=== PATIENT | female | born 1965 | race African-American/Black ===

== ENCOUNTER 2016-11-14 13:31 | Inpatient (IN) | payer OTHER ==
[2016-11-14 14:02] VITALS: BMI 22.8
--- NOTE | 2016-11-14 17:12 | HP ---
COWS - Scale Resting Pulse: 1= [place] 81-100 Sweatin= Chills/Flushing Restless Observation: 1= Difficult to Sit Still Pupil Size: 1= Pupils >than Normal Bone or Joint Aches: 1= Mild Discomfort Runny Nose/ Eye Tearin= Nasal Congestion GI Upset > 30mins: 1= Stomach Cramp Tremor Observation: 2= Slight Tremor Visible Yawning Observation: 0= None Anxiety or Irritability: 2=Irritable/Anxious Goose Flesh Skin: 3=Piloerection COWS Score: 14 Admission ROS S - HPI Chief Complaint: WITHDRAWAL SX Allergies/Adverse Reactions: Allergies Allergy/AdvReac Type Severity Reaction Status Date / Time No Known Allergies Allergy Verified 11/14/16 17:07 History of Present Illness: 51 YEARS OLD FEMALE WITH LONG HISTORY OF OPIATE AND NICOTINE DEPENDENCE, DENIES MEDICAL DENIES MENTAL ILLNESS IS ADMITTED TO DETOX Exam Limitations: No Limitations - Ebola screening Have you traveled outside of the country in the last 21 days: No Have you had contact with anyone from an Ebola affected area: No Have you been sick,other than usual withdrawal symptoms: No Do you have a fever: No Patient History - Patient Medical History Hx Anemia: No Hx Asthma: No Hx Chronic Obstructive Pulmonary Disease (COPD): No Hx Cancer: No Hx Cardiac Disorders: No Hx Congestive Heart Failure: No Hx Hypertension: No Hx Hypercholesterolemia: No Hx Pacemaker: No HX Cerebrovascular Accident: No Hx Seizures: No Hx Dementia: No Hx Diabetes: No Hx Gastrointestinal Disorders: No Hx Liver Disease: No Hx Genitourinary Disorders: No Hx Sexually Transmitted Disorders: No Hx Renal Disease (ESRD): No Hx Thyroid Disease: No Hx Human Immunodeficiency Virus (HIV): No (LAST 05/08/16) Hx Hepatitis C: No Hx Depression: No Hx Suicide Attempt: No Hx Bipolar Disorder: No Hx Schizophrenia: No - Patient Surgical History Past Surgical History: No Hx Neurologic Surgery: No Hx Cataract Extraction: No Hx Cardiac Surgery: No Hx Lung Surgery: No Hx Breast Surgery: No Hx Breast Biopsy: No Hx Abdominal Surgery: No Hx Appendectomy: No Hx Cholecystectomy: No Hx Genitourinary Surgery: No Hx Section: No Hx Orthopedic Surgery: No Hx Hysterectomy: No - PPD History Previous Implant?: Yes Documented Results: Negative w/proof Implanted On Prior R Admission?: Yes Date: 05/10/16 Results: O MM PPD to be Administered?: No - Reproductive History Patient is a Female of Child Bearing Age (11 -55 yrs old): Yes Last Menstrual Period: 10/21/16 Patient : No - Smoking Cessation Smoking history: Current every day smoker Have you smoked in the past 12 months: Yes Aproximately how many cigarettes per day: 10 Cigars Per Day: 0 Hx Chewing Tobacco Use: No Initiated information on smoking cessation: Yes 'Breaking Loose' booklet given: 11/14/16 - Substance & Tx. History Hx Alcohol Use: No Hx Substance Use: Yes Substance Use Type: Opiates Hx Substance Use Treatment: Yes - Substances Abused Heroin Route: Inhalation Frequency: Daily Amount used: 7 bags Age of first use: 50 Date of Last Use: 11/13/16 Crack Route: Smoking Frequency: 3-6 times per week Amount used: $100 Age of first use: 27 Date of Last Use: 11/13/16 Family Disease History - Family Disease History Family Disease History: Other: Father (NO CONTACT), Mother ( LIVER ) Admission Physical Exam [facility] - Vital Signs Vital Signs: Vital Signs - 24 hr 11/14/16 13:57 Temperature 96.3 F L Pulse Rate 85 Respiratory 18 Rate Blood Pressure 104/85 - Physical General Appearance: Yes: Appropriately Dressed, Mild Distress, Thin, Tremorous, Irritable, Sweating, Anxious HEENTM: Yes: Hearing grossly Normal, Normal ENT Inspection, Normocephalic, Normal Voice Respiratory: Yes: Chest Non-Tender, Lungs Clear, Normal Breath Sounds, No Respiratory Distress, No Accessory Muscle Use Neck: Yes: Supple, Trachea in good position Breast: Yes: Breasts Symetrical Cardiology: Yes: Regular Rhythm, Regular Rate, S1, S2 Abdominal: Yes: Non Tender, Soft Genitourinary: Yes: Within Normal Limits Back: Yes: Normal Inspection Musculoskeletal: Yes: full range of Motion, Gait Steady Extremities: Yes: Normal Range of Motion, Non-Tender, Tremors Neurological: Yes: Fully Oriented, Alert, Motor Strength 5/5, Normal Mood/Affect , Normal Response Integumentary: Yes: Warm Lymphatic: Yes: Within Normal Limits - Diagnostic (1) Nicotine dependence Current Visit: Yes Status: Acute Qualifiers: Nicotine product type: cigarettes Substance use status: in withdrawal Qualified Code(s): F17.213 - Nicotine dependence, cigarettes, with withdrawal (2) Opioid dependence with withdrawal Current Visit: Yes Status: Acute (3) Weight loss Current Visit: Yes Status: Acute Cleared for Admission [facility] - Detox or Rehab [facility] Level of Care: Medically Managed Detox Regimen/Protocol: Methadone [facility] Breath Alcohol Content Breath Alcohol Content: 0 Urine Pregancy Test - Result Urine Test Results: Negative- NO Line Present Urine Drug Screen - Results Drug Screen Negative: No Urine Drug Screen Results: REILLY-Cocaine, OPI-Opiates, OXY-Oxycodone
[2016-11-14] MEDS ORDERED: P-EPHED 60MG/TRIPROLIDI 2.5MG TABLET PO PRN (17:15)
[2016-11-14] MEDS ORDERED: MAG HYDROX/AL HYDROX/SIMETH 30 ML UNIT-DOSE CUP PO PRN (17:15)
[2016-11-14] MEDS ORDERED: NICOTINE POLACRILEX 2 MG GUM BC PRN (17:15)
[2016-11-14] MEDS ORDERED: guaiFENesin/D-METHORPHAN HB 10 ML UNIT-DOSE CUPS PO PRN (17:15)
[2016-11-14] MEDS ORDERED: IBUPROFEN 400 MG TABLET (FP) PO PRN (17:15)
[2016-11-14] MEDS ORDERED: MAGNESIUM CITRATE 300 ML BOTTLE PO PRN (17:15)
[2016-11-14] MEDS ORDERED: LOPERAMIDE HCL 2 MG CAPSULE PO PRN (17:15)
[2016-11-14] MEDS ORDERED: ACETAMINOPHEN 325 MG TABLET (FP) PO PRN (17:15)
[2016-11-14] MEDS ORDERED: MENTHOL/PHENOL 1 EACH UD MM PRN (17:15)
[2016-11-14] MEDS ORDERED: MAGNESIUM HYDROX 2400MG/30ML ORAL SUSPENSION 30 ML CUP PO PRN (17:15)
[2016-11-14] MEDS ORDERED: METHADONE HCL 10 MG TABLET (FOR DETOX USE ONLY) PO ONE ×2 (18:00→23:00)
[2016-11-14] MEDS: diazePAM 5 MG TABLET PO PRN ×2 (18:23→22:03)
[2016-11-14] MEDS: THIAMINE HCL 100 MG TABLET (FP) PO SCH (22:03)
[2016-11-15] MEDS: diphenhydrAMINE HCL 50 MG CAPSULE PO PRN (01:52)
[2016-11-15] MEDS: diazePAM 5 MG TABLET PO PRN ×4 (02:45→22:46)
[2016-11-15] MEDS ORDERED: METHADONE HCL 10 MG TABLET (FOR DETOX USE ONLY) PO ONE (10:00)
[2016-11-15] MEDS: PRENATAL VITAMINS W/ FOLIC ACID TABLET (FP) PO SCH (10:16)
[2016-11-15] MEDS: NICOTINE 14 MG/24 HOURS TOPICAL PATCH TD SCH (10:16)
[2016-11-15 10:18] LABS: URINE APPEARANCE CLEAR; URINE BILIRUBIN NEGATIVE (NEGATIVE); URINE BLOOD NEGATIVE (NEGATIVE); URINE COLOR STRAW; URINE GLUCOSE (UA) NEGATIVE (NEGATIVE); URINE KETONE NEGATIVE (NEGATIVE); URINE LEUK ESTERASE NEGATIVE (NEGATIVE); URINE NITRITE NEGATIVE (NEGATIVE); URINE PROTEIN NEGATIVE (NEGATIVE); URINE UROBILINOGEN NEGATIVE E.U./dl (0.2-1.0)
[2016-11-15 10:28] LABS: MCH 26.3 pg (25.7-33.7); MCHC 31.9 g/dl (32.0-36.0); MEAN CELL VOLUME 82.2 fl (80-96); MEAN PLT VOLUME 10.9 fl (7.5-11.1); PLATELET COUNT 164 K/MM3 (134-434); RDW 16.8 % (11.6-15.6); WHITE BLOOD COUNT 3.9 K/mm3 (4.0-10.0)
[2016-11-15 10:31] LABS: ALBUMIN 3.6 g/dl (3.4-5.0); ALK PHOS 115 U/L (45-117); ANION GAP 5 (8-16); BILIRUBIN,TOTAL 0.1 mg/dL (0.2-1.0); CALCIUM 8.6 mg/dL (8.5-10.1); CO2 30 mmol/L (21-32); CREATININE 0.8 mg/dL (0.55-1.02); GLUCOSE,RANDOM 63 mg/dL (74-106); SGOT/AST 21 U/L (15-37); SGPT/ALT 19 U/L (12-78); TOT PROT 6.4 g/dl (6.4-8.2)
--- NOTE | 2016-11-15 16:12 | EKG ---
Test Reason : Blood Pressure : / mmHG Vent. Rate : 053 BPM Atrial Rate : 053 BPM P-R Int : 124 ms QRS Dur : 082 ms QT Int : 452 ms P-R-T Axes : 081 042 044 degrees QTc Int : 424 ms SINUS BRADYCARDIA POSSIBLE LEFT ATRIAL ENLARGEMENT BORDERLINE ECG NO PREVIOUS ECGS AVAILABLE Confirmed by RADHA DAVALOS, SUZANNE ([id number]) on 11/15/2016 4:12:11 PM Referred By: Confirmed By:SUZANNE GARCIA MD
[2016-11-15] MEDS: THIAMINE HCL 100 MG TABLET (FP) PO SCH (22:46)
[2016-11-16] MEDS: diazePAM 5 MG TABLET PO PRN ×5 (02:08→19:17)
[2016-11-16] MEDS ORDERED: METHADONE HCL 5 MG TABLET (FOR DETOX USE ONLY) PO ONE (10:00)
--- NOTE | 2016-11-16 10:26 | PN ---
S CIWA - CIWA Score Nausea/Vomitin Muscle Tremors: 2 Anxiety: 2 Agitation: 2 Paroxysmal Sweats: 3 Orientation: 0-Oriented Tacttile Disturbances: 1-Very Mild Itch/Numbness Auditory Disturbances: 0-None Visual Disturbances: 0-None Headache: 0-None Present CIWA-Ar Total Score: 12 S Progress Note (SOAP) Subjective: interrupted sleep, sweats Objective: 11/16/16 10:25 Vital Signs Temperature 97.9 F 11/16/16 09:55 Pulse Rate 79 11/16/16 09:55 Respiratory Rate 18 11/16/16 09:55 Blood Pressure 113/73 11/16/16 09:55 O2 Sat by Pulse Oximetry (%) Vital Signs Temperature 97.9 F 11/16/16 09:55 Pulse Rate 79 11/16/16 09:55 Respiratory Rate 18 11/16/16 09:55 Blood Pressure 113/73 11/16/16 09:55 O2 Sat by Pulse Oximetry (%) Laboratory Tests 11/15/16 11/15/16 11/15/16 06:20 06:20 06:20 WBC 3.9 L RBC 4.21 Hgb 11.1 Hct 34.6 MCV 82.2 MCHC 31.9 L RDW 16.8 H Plt Count 164 MPV 10.9 Sodium 142 Potassium 4.2 Chloride 107 Carbon Dioxide 30 Anion Gap 5 L BUN 9 D Creatinine 0.8 Creat Clearance w eGFR > 60 Random Glucose 63 L D Calcium 8.6 Total Bilirubin 0.1 L AST 21 ALT 19 D Alkaline Phosphatase 115 Total Protein 6.4 Albumin 3.6 D Urine Color Urine Appearance Urine pH Ur Specific [place] Urine Protein Urine Glucose (UA) Urine Ketones Urine Blood Urine Nitrite Urine Bilirubin Urine Urobilinogen Ur Leukocyte Esterase RPR Titer Hepatitis C Antibody 0.1 11/15/16 11/15/16 06:20 08:00 WBC RBC Hgb Hct MCV MCHC RDW Plt Count MPV Sodium Potassium Chloride Carbon Dioxide Anion Gap BUN Creatinine Creat Clearance w eGFR Random Glucose Calcium Total Bilirubin AST ALT Alkaline Phosphatase Total Protein Albumin Urine Color Straw Urine Appearance Clear Urine pH 6.0 Ur Specific [place] 1.009 Urine Protein Negative Urine Glucose (UA) Negative Urine Ketones Negative Urine Blood Negative Urine Nitrite Negative Urine Bilirubin Negative Urine Urobilinogen Negative Ur Leukocyte Esterase Negative RPR Titer Nonreactive Hepatitis C Antibody Assessment: 11/16/16 10:25 withdrawl sx,s Plan: cont, detox increase fluids
[2016-11-16] MEDS: PRENATAL VITAMINS W/ FOLIC ACID TABLET (FP) PO SCH (10:29)
[2016-11-16] MEDS: NICOTINE 14 MG/24 HOURS TOPICAL PATCH TD SCH (10:30)
[2016-11-16] MEDS: THIAMINE HCL 100 MG TABLET (FP) PO SCH (22:23)
[2016-11-16] MEDS: diphenhydrAMINE HCL 50 MG CAPSULE PO PRN (22:23)
[2016-11-17] MEDS: diazePAM 5 MG TABLET PO PRN ×4 (00:30→14:24)
[2016-11-17] MEDS ORDERED: METHADONE HCL 5 MG TABLET (FOR DETOX USE ONLY) PO ONE (10:00)
[2016-11-17] MEDS: NICOTINE 14 MG/24 HOURS TOPICAL PATCH TD SCH (10:17)
[2016-11-17] MEDS: PRENATAL VITAMINS W/ FOLIC ACID TABLET (FP) PO SCH (10:18)
--- NOTE | 2016-11-17 16:01 | PN ---
S COWS - Scale Resting Pulse: 1= [place] 81-100 Sweatin= Chills/Flushing Restless Observation: 1= Difficult to Sit Still Pupil Size: 0= Normal to Room Light Bone or Joint Aches: 1= Mild Discomfort Runny Nose/ Eye Tearin= None GI Upset > 30mins: 2= Nausea/Diarrhea Tremor Observation of Outstretched Hands: 2= Slight Tremor Visible Yawning Observation: 1= 1-2x During Session Anxiety or Irritability: 2=Irritable/Anxious Goose Flesh Skin: 3=Piloerection COWS Score: 14 S Progress Note (SOAP) Subjective: Tremors, sweating. Objective: PT. A & O X 2 (DISORIENTED ABOUT DAY DATE). 11/17/16 15:58 Vital Signs Temperature 98.4 F 11/17/16 14:36 Pulse Rate 85 11/17/16 14:36 Respiratory Rate 18 11/17/16 14:36 Blood Pressure 108/68 11/17/16 14:36 O2 Sat by Pulse Oximetry (%) Laboratory Last Values WBC 3.9 K/mm3 (4.0-10.0) L 11/15/16 06:20 RBC 4.21 M/mm3 (3.60-5.2) 11/15/16 06:20 Hgb 11.1 GM/dL (10.7-15.3) 11/15/16 06:20 Hct 34.6 % (32.4-45.2) 11/15/16 06:20 MCV 82.2 fl (80-96) 11/15/16 06:20 MCHC 31.9 g/dl (32.0-36.0) L 11/15/16 06:20 RDW 16.8 % (11.6-15.6) H 11/15/16 06:20 Plt Count 164 K/MM3 (134-434) 11/15/16 06:20 MPV 10.9 fl (7.5-11.1) 11/15/16 06:20 Sodium 142 mmol/L (136-145) 11/15/16 06:20 Potassium 4.2 mmol/L (3.5-5.1) 11/15/16 06:20 Chloride 107 mmol/L (98-107) 11/15/16 06:20 Carbon Dioxide 30 mmol/L (21-32) 11/15/16 06:20 Anion Gap 5 (8-16) L 11/15/16 06:20 BUN 9 mg/dL (7-18) D 11/15/16 06:20 Creatinine 0.8 mg/dL (0.55-1.02) 11/15/16 06:20 Creat Clearance w eGFR > 60 (>60) 11/15/16 06:20 Random Glucose 63 mg/dL (74-106) L D 11/15/16 06:20 Calcium 8.6 mg/dL (8.5-10.1) 11/15/16 06:20 Total Bilirubin 0.1 mg/dL (0.2-1.0) L 11/15/16 06:20 AST 21 U/L (15-37) 11/15/16 06:20 ALT 19 U/L (12-78) D 11/15/16 06:20 Alkaline Phosphatase 115 U/L (45-117) 11/15/16 06:20 Total Protein 6.4 g/dl (6.4-8.2) 11/15/16 06:20 Albumin 3.6 g/dl (3.4-5.0) D 11/15/16 06:20 Urine Color Straw 11/15/16 08:00 Urine Appearance Clear 11/15/16 08:00 Urine pH 6.0 (5.0-8.0) 11/15/16 08:00 Ur Specific [place] 1.009 (1.001-1.035) 11/15/16 08:00 Urine Protein Negative (NEGATIVE) 11/15/16 08:00 Urine Glucose (UA) Negative (NEGATIVE) 11/15/16 08:00 Urine Ketones Negative (NEGATIVE) 11/15/16 08:00 Urine Blood Negative (NEGATIVE) 11/15/16 08:00 Urine Nitrite Negative (NEGATIVE) 11/15/16 08:00 Urine Bilirubin Negative (NEGATIVE) 11/15/16 08:00 Urine Urobilinogen Negative E.U./dl (0.2-1.0) 11/15/16 08:00 Ur Leukocyte Esterase Negative (NEGATIVE) 11/15/16 08:00 RPR Titer Nonreactive (NONREACTIVE) 11/15/16 06:20 Hepatitis C Antibody 0.1 s/co ratio (0.0-0.9) 11/15/16 06:20 LABS NOTED. Assessment: 11/17/16 15:59 WITHDRAWAL SYMPTOMS. Plan: CONTINUE DETOX. ADVISED PATIENT TO FOLLOW-UP WITH TELECOMMUNICATIONS NETWORK ENGINEER / REHAB MEDICAL PROVIDER AFTER DISCHARGE FROM DETOX FOR GENERAL MEDICAL ASSESSMENT AND FOR ABNORMAL ADMISSION LAB VALUES.
--- NOTE | 2016-11-17 16:44 | EKG ---
Test Reason : Blood Pressure : / mmHG Vent. Rate : 066 BPM Atrial Rate : 066 BPM P-R Int : 132 ms QRS Dur : 088 ms QT Int : 398 ms P-R-T Axes : 061 017 027 degrees QTc Int : 417 ms NORMAL SINUS RHYTHM POSSIBLE LEFT ATRIAL ENLARGEMENT LEFT VENTRICULAR HYPERTROPHY ABNORMAL ECG WHEN COMPARED WITH ECG OF 14-NOV-2016 18:29, NO SIGNIFICANT CHANGE WAS FOUND Confirmed by MD EVARISTO, MOO ([id number]) on 11/17/2016 4:44:06 PM Referred By: Confirmed By:MOO LOERA MD
[2016-11-17] MEDS: hydrOXYzine PAMOATE 50 MG CAPSULE (FP) PO PRN (18:54)
[2016-11-17] MEDS: THIAMINE HCL 100 MG TABLET (FP) PO SCH (22:26)
[2016-11-17] MEDS: diphenhydrAMINE HCL 50 MG CAPSULE PO PRN (22:26)
[2016-11-18] MEDS ORDERED: METHADONE HCL 10 MG TABLET (FOR DETOX USE ONLY) PO ONE (10:00)
[2016-11-18] MEDS: NICOTINE 14 MG/24 HOURS TOPICAL PATCH TD SCH (10:50)
[2016-11-18] MEDS: PRENATAL VITAMINS W/ FOLIC ACID TABLET (FP) PO SCH (10:51)
[2016-11-18] MEDS: hydrOXYzine PAMOATE 50 MG CAPSULE (FP) PO PRN ×3 (10:52→22:30)
--- NOTE | 2016-11-18 13:12 | PN ---
BHS Progress Note (SOAP) Subjective: Shakes, sweats and anxiety Objective: 11/18/16 13:11 NAD Vital Signs - 8 hr 11/18/16 11/18/16 06:00 06:30 Temperature 98.2 F Pulse Rate 69 Respiratory 16 18 Rate Blood Pressure 110/59 Laboratory Last Values WBC 3.9 K/mm3 (4.0-10.0) L 11/15/16 06:20 RBC 4.21 M/mm3 (3.60-5.2) 11/15/16 06:20 Hgb 11.1 GM/dL (10.7-15.3) 11/15/16 06:20 Hct 34.6 % (32.4-45.2) 11/15/16 06:20 MCV 82.2 fl (80-96) 11/15/16 06:20 MCHC 31.9 g/dl (32.0-36.0) L 11/15/16 06:20 RDW 16.8 % (11.6-15.6) H 11/15/16 06:20 Plt Count 164 K/MM3 (134-434) 11/15/16 06:20 MPV 10.9 fl (7.5-11.1) 11/15/16 06:20 Sodium 142 mmol/L (136-145) 11/15/16 06:20 Potassium 4.2 mmol/L (3.5-5.1) 11/15/16 06:20 Chloride 107 mmol/L (98-107) 11/15/16 06:20 Carbon Dioxide 30 mmol/L (21-32) 11/15/16 06:20 Anion Gap 5 (8-16) L 11/15/16 06:20 BUN 9 mg/dL (7-18) D 11/15/16 06:20 Creatinine 0.8 mg/dL (0.55-1.02) 11/15/16 06:20 Creat Clearance w eGFR > 60 (>60) 11/15/16 06:20 Random Glucose 63 mg/dL (74-106) L D 11/15/16 06:20 Calcium 8.6 mg/dL (8.5-10.1) 11/15/16 06:20 Total Bilirubin 0.1 mg/dL (0.2-1.0) L 11/15/16 06:20 AST 21 U/L (15-37) 11/15/16 06:20 ALT 19 U/L (12-78) D 11/15/16 06:20 Alkaline Phosphatase 115 U/L (45-117) 11/15/16 06:20 Total Protein 6.4 g/dl (6.4-8.2) 11/15/16 06:20 Albumin 3.6 g/dl (3.4-5.0) D 11/15/16 06:20 Urine Color Straw 11/15/16 08:00 Urine Appearance Clear 11/15/16 08:00 Urine pH 6.0 (5.0-8.0) 11/15/16 08:00 Ur Specific [place] 1.009 (1.001-1.035) 11/15/16 08:00 Urine Protein Negative (NEGATIVE) 11/15/16 08:00 Urine Glucose (UA) Negative (NEGATIVE) 11/15/16 08:00 Urine Ketones Negative (NEGATIVE) 11/15/16 08:00 Urine Blood Negative (NEGATIVE) 11/15/16 08:00 Urine Nitrite Negative (NEGATIVE) 11/15/16 08:00 Urine Bilirubin Negative (NEGATIVE) 11/15/16 08:00 Urine Urobilinogen Negative E.U./dl (0.2-1.0) 11/15/16 08:00 Ur Leukocyte Esterase Negative (NEGATIVE) 11/15/16 08:00 RPR Titer Nonreactive (NONREACTIVE) 11/15/16 06:20 Hepatitis C Antibody 0.1 s/co ratio (0.0-0.9) 11/15/16 06:20 Labs noted Assessment: 11/18/16 13:11 withdrawal sx Plan: continue detox
[2016-11-18] MEDS: THIAMINE HCL 100 MG TABLET (FP) PO SCH (22:30)
[2016-11-19] MEDS: hydrOXYzine PAMOATE 50 MG CAPSULE (FP) PO PRN (04:05)
[2016-11-19] MEDS ORDERED: METHADONE HCL 5 MG TABLET (FOR DETOX USE ONLY) PO ONE (06:00)
--- NOTE | 2016-11-19 10:22 | DS ---
[facility] Detox Discharge Summary Admission Date: 11/14/16 Discharge Date: 11/19/16 - History Present History: Cocaine Dependence, Opioid Dependence Pertinent Past History: Smoker - Physical Exam Results Vital Signs: Vital Signs Temperature 96.8 F L 11/19/16 06:00 Pulse Rate 80 11/19/16 06:00 Respiratory Rate 16 11/19/16 06:00 Blood Pressure 96/60 11/19/16 06:00 O2 Sat by Pulse Oximetry (%) Laboratory Last Values WBC 3.9 K/mm3 (4.0-10.0) L 11/15/16 06:20 RBC 4.21 M/mm3 (3.60-5.2) 11/15/16 06:20 Hgb 11.1 GM/dL (10.7-15.3) 11/15/16 06:20 Hct 34.6 % (32.4-45.2) 11/15/16 06:20 MCV 82.2 fl (80-96) 11/15/16 06:20 MCHC 31.9 g/dl (32.0-36.0) L 11/15/16 06:20 RDW 16.8 % (11.6-15.6) H 11/15/16 06:20 Plt Count 164 K/MM3 (134-434) 11/15/16 06:20 MPV 10.9 fl (7.5-11.1) 11/15/16 06:20 Sodium 142 mmol/L (136-145) 11/15/16 06:20 Potassium 4.2 mmol/L (3.5-5.1) 11/15/16 06:20 Chloride 107 mmol/L (98-107) 11/15/16 06:20 Carbon Dioxide 30 mmol/L (21-32) 11/15/16 06:20 Anion Gap 5 (8-16) L 11/15/16 06:20 BUN 9 mg/dL (7-18) D 11/15/16 06:20 Creatinine 0.8 mg/dL (0.55-1.02) 11/15/16 06:20 Creat Clearance w eGFR > 60 (>60) 11/15/16 06:20 Random Glucose 63 mg/dL (74-106) L D 11/15/16 06:20 Calcium 8.6 mg/dL (8.5-10.1) 11/15/16 06:20 Total Bilirubin 0.1 mg/dL (0.2-1.0) L 11/15/16 06:20 AST 21 U/L (15-37) 11/15/16 06:20 ALT 19 U/L (12-78) D 11/15/16 06:20 Alkaline Phosphatase 115 U/L (45-117) 11/15/16 06:20 Total Protein 6.4 g/dl (6.4-8.2) 11/15/16 06:20 Albumin 3.6 g/dl (3.4-5.0) D 11/15/16 06:20 Urine Color Straw 11/15/16 08:00 Urine Appearance Clear 11/15/16 08:00 Urine pH 6.0 (5.0-8.0) 11/15/16 08:00 Ur Specific [place] 1.009 (1.001-1.035) 11/15/16 08:00 Urine Protein Negative (NEGATIVE) 11/15/16 08:00 Urine Glucose (UA) Negative (NEGATIVE) 11/15/16 08:00 Urine Ketones Negative (NEGATIVE) 11/15/16 08:00 Urine Blood Negative (NEGATIVE) 11/15/16 08:00 Urine Nitrite Negative (NEGATIVE) 11/15/16 08:00 Urine Bilirubin Negative (NEGATIVE) 11/15/16 08:00 Urine Urobilinogen Negative E.U./dl (0.2-1.0) 11/15/16 08:00 Ur Leukocyte Esterase Negative (NEGATIVE) 11/15/16 08:00 RPR Titer Nonreactive (NONREACTIVE) 11/15/16 06:20 Hepatitis C Antibody 0.1 s/co ratio (0.0-0.9) 11/15/16 06:20 labs noted Pertinent Admission Physical Exam Findings: withdrawal symptoms - Treatment Hospital Course: Detox Protocol Followed, Detoxed Safely, Responded well, Discharged Condition Good - Medication Discharge Medications: Ambulatory Orders NK [No Known Home Medication] 09/08/16 - Diagnosis (1) Nicotine dependence Current Visit: Yes Status: Acute Qualifiers: Nicotine product type: cigarettes Substance use status: in withdrawal Qualified Code(s): F17.213 - Nicotine dependence, cigarettes, with withdrawal (2) Opioid dependence with withdrawal Current Visit: Yes Status: Acute (3) Crack cocaine use Current Visit: No Status: Chronic - AMA Did Patient Leave Against Medical Advice: No
[2016-11-19] MEDS: NICOTINE 14 MG/24 HOURS TOPICAL PATCH TD SCH (10:36)
[2016-11-19] MEDS: PRENATAL VITAMINS W/ FOLIC ACID TABLET (FP) PO SCH (10:36)
[2016-11-19 10:48] VITALS: BP 109/66; PULSE 87; TEMP 97.9
== END 2016-11-19 11:30 | disposition other institution (70) | DRG 773 ==
LOC: YASAS 13:31 → Y6N 17:47
PROVIDERS: ADMIT Internal Medicine Addiction Medicine; ATTEND Internal Medicine Addiction Medicine
PROC: HZ2ZZZZ Detoxification Services for Substance Abuse Treatment (ICD-10-PCS; principal; 2016-11-19)
DX: F11.23 Opioid dependence with withdrawal (principal); F17.213 Nicotine dependence, cigarettes, with withdrawal; F14.10 Cocaine abuse, uncomplicated; R63.4 Abnormal weight loss; Z68.22 Body mass index [BMI] 22.0-22.9, adult
CPT/HCPCS: 36415; 80053; 81003; 85027; 86593; 93005; 93010

== ENCOUNTER 2017-05-29 14:49 | Inpatient (IN) | payer OTHER ==
[2017-05-29 15:45] VITALS: BMI 23.3
[2017-05-29] MEDS ORDERED: NICOTINE POLACRILEX 2 MG GUM BC PRN (17:02)
[2017-05-29] MEDS ORDERED: P-EPHED 60MG/TRIPROLIDI 2.5MG TABLET PO PRN (17:02)
[2017-05-29] MEDS ORDERED: ACETAMINOPHEN 325 MG TABLET (FP) PO PRN (17:02)
[2017-05-29] MEDS ORDERED: LOPERAMIDE HCL 2 MG CAPSULE PO PRN (17:02)
[2017-05-29] MEDS ORDERED: MAGNESIUM HYDROX 2400MG/30ML ORAL SUSPENSION 30 ML CUP PO PRN (17:02)
[2017-05-29] MEDS ORDERED: MAG HYDROX/AL HYDROX/SIMETH 30 ML UNIT-DOSE CUP PO PRN (17:02)
[2017-05-29] MEDS ORDERED: guaiFENesin/D-METHORPHAN HB 10 ML UNIT-DOSE CUPS PO PRN (17:02)
[2017-05-29] MEDS ORDERED: IBUPROFEN 400 MG TABLET (FP) PO PRN (17:02)
[2017-05-29] MEDS ORDERED: METHADONE HCL 10 MG TABLET (FOR DETOX USE ONLY) PO ONE ×2 (17:02→23:00)
[2017-05-29] MEDS ORDERED: MENTHOL/PHENOL 1 EACH UD MM PRN (17:02)
[2017-05-29] MEDS ORDERED: MAGNESIUM CITRATE 300 ML BOTTLE PO PRN (17:02)
--- NOTE | 2017-05-29 17:02 | HP ---
COWS - Scale Resting Pulse: 1= [place] 81-100 Sweatin= Chills/Flushing Restless Observation: 3= Extraneous Movement Pupil Size: 0= Normal to Room Light Bone or Joint Aches: 2= Severe Diffuse Aches Runny Nose/ Eye Tearin= Nasal Congestion GI Upset > 30mins: 1= Stomach Cramp Tremor Observation: 2= Slight Tremor Visible Yawning Observation: 1= 1-2x During Session Anxiety or Irritability: 2=Irritable/Anxious Goose Flesh Skin: 0=Smooth Skin COWS Score: 14 Admission ROS S - HPI Chief Complaint: withdrawal sx Allergies/Adverse Reactions: Allergies Allergy/AdvReac Type Severity Reaction Status Date / Time No Known Allergies Allergy Verified 05/29/17 16:28 History of Present Illness: 52 years old female with long history of opiate, nicotine, cocaine dependence denies medical issue denies mental illness is admitted to detox Exam Limitations: No Limitations - Ebola screening Have you traveled outside of the country in the last 21 days: No Have you had contact with anyone from an Ebola affected area: No Have you been sick,other than usual withdrawal symptoms: No Do you have a fever: No - Review of Systems Constitutional: Loss of Appetite, Changes in sleep, Unintentional Wgt. Loss, Unexplained wgt Loss EENT: reports: No Symptoms Reported Respiratory: reports: No Symptoms reported Cardiac: reports: No Symptoms Reported GI: reports: Nausea, Poor Appetite, Poor Fluid Intake, Abdominal cramping : reports: No Symptoms Reported Musculoskeletal: reports: Back Pain, Joint Pain, Muscle Pain, Neck Pain Integumentary: reports: No Symptoms Reported Neuro: reports: Tremors Endocrine: reports: No Symptoms Reported Hematology: reports: No Symptoms Reported Psychiatric: reports: Judgement Intact, Mood/Affect Appropiate, Orientated x3 Other Systems: Reviewed and Negative Patient History - Patient Medical History Hx Anemia: No Hx Asthma: No Hx Chronic Obstructive Pulmonary Disease (COPD): No Hx Cancer: No Hx Cardiac Disorders: No Hx Congestive Heart Failure: No Hx Hypertension: No Hx Hypercholesterolemia: No Hx Pacemaker: No HX Cerebrovascular Accident: No Hx Seizures: No Hx Dementia: No Hx Diabetes: No Hx Gastrointestinal Disorders: No Hx Liver Disease: No Hx Genitourinary Disorders: No Hx Sexually Transmitted Disorders: No Hx Renal Disease (ESRD): No Hx Thyroid Disease: No Hx Human Immunodeficiency Virus (HIV): No (LAST 05/08/16) Hx Hepatitis C: No Hx Depression: No Hx Suicide Attempt: No Hx Bipolar Disorder: No Hx Schizophrenia: No - Patient Surgical History Past Surgical History: No Hx Neurologic Surgery: No Hx Cataract Extraction: No Hx Cardiac Surgery: No Hx Lung Surgery: No Hx Breast Surgery: No Hx Breast Biopsy: No Hx Abdominal Surgery: No Hx Appendectomy: No Hx Cholecystectomy: No Hx Genitourinary Surgery: No Hx Section: No Hx Orthopedic Surgery: No Hx Hysterectomy: No - PPD History Previous Implant?: Yes Documented Results: Negative w/o proof Implanted On Prior [facility] Admission?: Yes Date: 05/10/16 Results: 0 MM PPD to be Administered?: Yes - Reproductive History Patient is a Female of Child Bearing Age (11 -55 yrs old): Yes Last Menstrual Period: 05/25/17 Patient : No - Smoking Cessation Smoking history: Current every day smoker Have you smoked in the past 12 months: Yes Aproximately how many cigarettes per day: 10 Cigars Per Day: 0 Hx Chewing Tobacco Use: No Initiated information on smoking cessation: Yes 'Breaking Loose' booklet given: 05/29/17 - Substance & Tx. History Hx Alcohol Use: No Hx Substance Use: Yes Substance Use Type: Cocaine, Opiates Hx Substance Use Treatment: Yes (11/14-11/19/[facility] - Substances Abused Heroin Route: Inhalation Frequency: Daily Amount used: 7-8 BAGS Age of first use: 51 Date of Last Use: 05/28/17 Cocaine Route: Smoking Frequency: 3-6 times per week Amount used: $100 Age of first use: 27 Date of Last Use: 05/28/17 Family Disease History - Family Disease History Family Disease History: Other: Father (NO CONTACT), Mother ( LIVER ) Admission Physical Exam [facility] - Vital Signs Vital Signs: Vital Signs - 24 hr 05/29/17 15:44 Temperature 96.8 F L Pulse Rate 91 H Respiratory 18 Rate Blood Pressure 109/70 - Physical General Appearance: Yes: Appropriately Dressed, Mild Distress, Thin, Tremorous, Irritable, Sweating, Anxious HEENTM: Yes: Hearing grossly Normal, Normal ENT Inspection, Normocephalic, Normal Voice Respiratory: Yes: Chest Non-Tender, Lungs Clear, Normal Breath Sounds, No Respiratory Distress, No Accessory Muscle Use Neck: Yes: Supple, Trachea in good position Breast: Yes: Breasts Symetrical Cardiology: Yes: Regular Rhythm, S1, S2, Tachycardia Abdominal: Yes: Normal Bowel Sounds, Non Tender, Soft Genitourinary: Yes: Within Normal Limits Back: Yes: Normal Inspection Musculoskeletal: Yes: full range of Motion, Gait Steady, Back pain, Muscle Pain Extremities: Yes: Normal Range of Motion, Non-Tender, Tremors Neurological: Yes: Fully Oriented, Alert, Motor Strength 5/5, Normal Mood/Affect , Normal Response Integumentary: Yes: Warm Lymphatic: Yes: Within Normal Limits - Diagnostic (1) Nicotine dependence Current Visit: Yes Status: Acute Qualifiers: Nicotine product type: cigarettes Substance use status: in withdrawal Qualified Code(s): F17.213 - Nicotine dependence, cigarettes, with withdrawal (2) Opioid dependence with withdrawal Current Visit: Yes Status: Acute (3) Weight loss Current Visit: Yes Status: Acute (4) Cocaine dependence, uncomplicated Current Visit: Yes Status: Chronic Cleared for Admission [facility] - Detox or Rehab [facility] Level of Care: Medically Managed Detox Regimen/Protocol: Methadone [facility] Breath Alcohol Content Breath Alcohol Content: 0 Urine Pregancy Test - Result Urine Test Results: Negative- NO Line Present Urine Drug Screen - Results Drug Screen Negative: No Urine Drug Screen Results: REILLY-Cocaine, OPI-Opiates, TCA-Tricyclic Antidepress
[2017-05-29] MEDS: diazePAM 5 MG TABLET PO PRN (22:09)
[2017-05-29] MEDS: THIAMINE HCL 100 MG TABLET (FP) PO SCH (22:09)
[2017-05-29 22:18] LABS: URINE APPEARANCE SLCLOUDY; URINE BILIRUBIN NEGATIVE (NEGATIVE); URINE BLOOD 3+ (NEGATIVE); URINE COLOR YELLOW; URINE GLUCOSE (UA) NEGATIVE (NEGATIVE); URINE KETONE NEGATIVE (NEGATIVE); URINE LEUK ESTERASE NEGATIVE (NEGATIVE); URINE NITRITE NEGATIVE (NEGATIVE); URINE UROBILINOGEN NEGATIVE mg/dL (0.2-1.0)
[2017-05-29 22:43] LABS: URINE PROTEIN 2+ (NEGATIVE)
[2017-05-29 22:55] LABS: URINE MUCUS RARE; URINE RBC 319 /hpf (0-3); URINE WBC 47 /hpf (3-5)
[2017-05-30] MEDS: diazePAM 5 MG TABLET PO PRN ×3 (04:35→22:15)
[2017-05-30 09:53] LABS: MCHC 32.7 g/dl (32.0-36.0); MEAN CELL VOLUME 85.8 fl (80-96); MEAN PLT VOLUME 10.4 fl (7.5-11.1); PLATELET COUNT 173 K/MM3 (134-434); RDW 17.3 % (11.6-15.6); WHITE BLOOD COUNT 4.6 K/mm3 (4.0-10.0)
[2017-05-30] MEDS ORDERED: METHADONE HCL 10 MG TABLET (FOR DETOX USE ONLY) PO ONE (10:00)
[2017-05-30 10:12] LABS: HIV 1 & 2 AB NEGATIVE; HIV 1 AGp24 NEGATIVE
--- NOTE | 2017-05-30 10:22 | PN ---
BHS COWS - Scale Resting Pulse: 1= [place] 81-100 Sweatin=Flushed/Facial Moisture Restless Observation: 1= Difficult to Sit Still Pupil Size: 0= Normal to Room Light Bone or Joint Aches: 2= Severe Diffuse Aches Runny Nose/ Eye Tearin= Runny Nose/Eyes GI Upset > 30mins: 2= Nausea/Diarrhea Tremor Observation of Outstretched Hands: 2= Slight Tremor Visible Yawning Observation: 2= >3x During Session Anxiety or Irritability: 2=Irritable/Anxious Goose Flesh Skin: 3=Piloerection COWS Score: 19 BHS Progress Note (SOAP) Subjective: body aches sweats shakes interrupted sleep irritable agitation Objective: 05/30/17 10:22 Vital Signs Temperature 97.9 F 05/30/17 05:59 Pulse Rate 89 05/30/17 05:59 Respiratory Rate 18 05/30/17 05:59 Blood Pressure 122/72 05/30/17 05:59 O2 Sat by Pulse Oximetry (%) Laboratory Tests 05/29/17 05/30/17 05/30/17 21:57 07:00 07:00 WBC 4.6 RBC 3.98 Hgb 11.2 Hct 34.2 MCV 85.8 MCH 28.0 MCHC 32.7 RDW 17.3 H Plt Count 173 MPV 10.4 Urine Color Yellow Urine Appearance Slcloudy Urine pH 6.0 Ur Specific [place] >= 1.030 H Urine Protein 2+ H Urine Glucose (UA) Negative Urine Ketones Negative Urine Blood 3+ H Urine Nitrite Negative Urine Bilirubin Negative Urine Urobilinogen Negative Ur Leukocyte Esterase Negative Urine RBC 319 Urine WBC 47 Ur Epithelial Cells Few Urine Mucus Rare HIV 1&2 Antibody Screen Negative HIV P24 Antigen Negative rest of labs pending awake/alert ambulating no acute distress Assessment: 05/30/17 10:22 withdrawal sx Plan: continue detox increase fluids labs pending
[2017-05-30] MEDS: PRENATAL VITAMINS W/ FOLIC ACID TABLET (FP) PO SCH (10:39)
[2017-05-30] MEDS: NICOTINE 14 MG/24 HOURS TOPICAL PATCH TD SCH (10:40)
[2017-05-30 10:45] LABS: ALBUMIN 2.9 g/dl (3.4-5.0); ANION GAP 7 (8-16); CALCIUM 8.6 mg/dL (8.5-10.1); CO2 28 mmol/L (21-32); CREATININE 0.7 mg/dL (0.55-1.02); GLUCOSE,RANDOM 83 mg/dL (74-106); SGOT/AST 21 U/L (15-37); SGPT/ALT 24 U/L (12-78)
--- NOTE | 2017-05-30 10:46 | EKG ---
Test Reason : Blood Pressure : / mmHG Vent. Rate : 058 BPM Atrial Rate : 058 BPM P-R Int : 122 ms QRS Dur : 084 ms QT Int : 408 ms P-R-T Axes : 071 032 034 degrees QTc Int : 400 ms SINUS BRADYCARDIA WITH PREMATURE ATRIAL COMPLEXES OTHERWISE NORMAL ECG WHEN COMPARED WITH ECG OF 16-NOV-2016 09:02, PREMATURE ATRIAL COMPLEXES ARE NOW PRESENT Confirmed by SHEILA DAVALOS, EVANGELNIA ([id number]) on 05/30/2017 10:45:54 AM Referred By: Sumit Baeza Confirmed By:EVANGELINA SOSA MD
[2017-05-30 10:47] LABS: ALK PHOS 104 U/L (45-117); BILIRUBIN,TOTAL 0.3 mg/dL (0.2-1.0); TOT PROT 5.6 g/dl (6.4-8.2)
[2017-05-30] MEDS: THIAMINE HCL 100 MG TABLET (FP) PO SCH (22:15)
[2017-05-30] MEDS: diphenhydrAMINE HCL 50 MG CAPSULE PO PRN (22:15)
[2017-05-31] MEDS: diazePAM 5 MG TABLET PO PRN ×4 (01:52→22:13)
[2017-05-31] MEDS: diphenhydrAMINE HCL 50 MG CAPSULE PO PRN ×2 (01:54→22:14)
[2017-05-31] MEDS ORDERED: METHADONE HCL 5 MG TABLET (FOR DETOX USE ONLY) PO ONE (10:00)
[2017-05-31] MEDS: PRENATAL VITAMINS W/ FOLIC ACID TABLET (FP) PO SCH (10:55)
[2017-05-31] MEDS: NICOTINE 14 MG/24 HOURS TOPICAL PATCH TD SCH (10:55)
--- NOTE | 2017-05-31 12:11 | PN ---
S COWS - Scale Resting Pulse: 1= [place] 81-100 Sweatin= Chills/Flushing Restless Observation: 1= Difficult to Sit Still Pupil Size: 1= Pupils >than Normal Bone or Joint Aches: 1= Mild Discomfort Runny Nose/ Eye Tearin= Nasal Congestion GI Upset > 30mins: 2= Nausea/Diarrhea Tremor Observation of Outstretched Hands: 2= Slight Tremor Visible Yawning Observation: 1= 1-2x During Session Anxiety or Irritability: 2=Irritable/Anxious Goose Flesh Skin: 3=Piloerection COWS Score: 16 S Progress Note (SOAP) Subjective: nausea, sweats, interrupted sleep, anxiety, tremors Objective: 06/04/17 08:21 Vital Signs - 24 hr 06/03/17 10:00 Temperature 97.3 F L Pulse Rate 97 H Respiratory 20 Rate Blood Pressure 98/66 Laboratory Tests 05/29/17 05/30/17 05/30/17 21:57 07:00 07:00 WBC 4.6 RBC 3.98 Hgb 11.2 Hct 34.2 MCV 85.8 MCH 28.0 MCHC 32.7 RDW 17.3 H Plt Count 173 MPV 10.4 Sodium Potassium Chloride Carbon Dioxide Anion Gap BUN Creatinine Creat Clearance w eGFR Random Glucose Calcium Total Bilirubin AST ALT Alkaline Phosphatase Total Protein Albumin Urine Color Yellow Urine Appearance Slcloudy Urine pH 6.0 Ur Specific [place] >= 1.030 H Urine Protein 2+ H Urine Glucose (UA) Negative Urine Ketones Negative Urine Blood 3+ H Urine Nitrite Negative Urine Bilirubin Negative Urine Urobilinogen Negative Ur Leukocyte Esterase Negative Urine RBC 319 Urine WBC 47 Ur Epithelial Cells Few Urine Mucus Rare RPR Titer HIV 1&2 Antibody Screen Negative HIV P24 Antigen Negative 05/30/17 05/30/17 07:00 07:00 WBC RBC Hgb Hct MCV MCH MCHC RDW Plt Count MPV Sodium 141 Potassium 4.2 Chloride 106 Carbon Dioxide 28 Anion Gap 7 L BUN 13 D Creatinine 0.7 Creat Clearance w eGFR > 60 Random Glucose 83 D Calcium 8.6 Total Bilirubin 0.3 D AST 21 ALT 24 D Alkaline Phosphatase 104 Total Protein 5.6 L Albumin 2.9 L Urine Color Urine Appearance Urine pH Ur Specific [place] Urine Protein Urine Glucose (UA) Urine Ketones Urine Blood Urine Nitrite Urine Bilirubin Urine Urobilinogen Ur Leukocyte Esterase Urine RBC Urine WBC Ur Epithelial Cells Urine Mucus RPR Titer Nonreactive HIV 1&2 Antibody Screen HIV P24 Antigen Assessment: 06/04/17 08:22 kimberly sx Plan: cont detox, fluids
[2017-05-31] MEDS: THIAMINE HCL 100 MG TABLET (FP) PO SCH (22:13)
[2017-06-01] MEDS: diphenhydrAMINE HCL 50 MG CAPSULE PO PRN ×2 (01:28→22:03)
[2017-06-01] MEDS: diazePAM 5 MG TABLET PO PRN ×3 (03:54→15:09)
--- NOTE | 2017-06-01 09:55 | PN ---
BHS Progress Note (SOAP) Subjective: nausea, sweats, interrupted sleep, anxiety, tremors Objective: 06/01/17 09:54 Vital Signs - 8 hr 06/01/17 06/01/17 03:30 06:55 Temperature 97.7 F Pulse Rate 83 Respiratory 18 18 Rate Blood Pressure 105/62 Laboratory Tests 05/29/17 05/30/17 05/30/17 21:57 07:00 07:00 WBC 4.6 RBC 3.98 Hgb 11.2 Hct 34.2 MCV 85.8 MCH 28.0 MCHC 32.7 RDW 17.3 H Plt Count 173 MPV 10.4 Sodium Potassium Chloride Carbon Dioxide Anion Gap BUN Creatinine Creat Clearance w eGFR Random Glucose Calcium Total Bilirubin AST ALT Alkaline Phosphatase Total Protein Albumin Urine Color Yellow Urine Appearance Slcloudy Urine pH 6.0 Ur Specific [place] >= 1.030 H Urine Protein 2+ H Urine Glucose (UA) Negative Urine Ketones Negative Urine Blood 3+ H Urine Nitrite Negative Urine Bilirubin Negative Urine Urobilinogen Negative Ur Leukocyte Esterase Negative Urine RBC 319 Urine WBC 47 Ur Epithelial Cells Few Urine Mucus Rare RPR Titer HIV 1&2 Antibody Screen Negative HIV P24 Antigen Negative 05/30/17 05/30/17 07:00 07:00 WBC RBC Hgb Hct MCV MCH MCHC RDW Plt Count MPV Sodium 141 Potassium 4.2 Chloride 106 Carbon Dioxide 28 Anion Gap 7 L BUN 13 D Creatinine 0.7 Creat Clearance w eGFR > 60 Random Glucose 83 D Calcium 8.6 Total Bilirubin 0.3 D AST 21 ALT 24 D Alkaline Phosphatase 104 Total Protein 5.6 L Albumin 2.9 L Urine Color Urine Appearance Urine pH Ur Specific [place] Urine Protein Urine Glucose (UA) Urine Ketones Urine Blood Urine Nitrite Urine Bilirubin Urine Urobilinogen Ur Leukocyte Esterase Urine RBC Urine WBC Ur Epithelial Cells Urine Mucus RPR Titer Nonreactive HIV 1&2 Antibody Screen HIV P24 Antigen Assessment: 06/01/17 09:55 withdrawal sx Plan: cont detox
[2017-06-01] MEDS ORDERED: METHADONE HCL 5 MG TABLET (FOR DETOX USE ONLY) PO ONE (10:00)
[2017-06-01] MEDS: PRENATAL VITAMINS W/ FOLIC ACID TABLET (FP) PO SCH (10:30)
[2017-06-01] MEDS: NICOTINE 14 MG/24 HOURS TOPICAL PATCH TD SCH (10:31)
[2017-06-01] MEDS ORDERED: hydrOXYzine PAMOATE 50 MG CAPSULE (FP) PO ONE (21:16)
[2017-06-01] MEDS: THIAMINE HCL 100 MG TABLET (FP) PO SCH (22:03)
[2017-06-02] MEDS ORDERED: METHADONE HCL 10 MG TABLET (FOR DETOX USE ONLY) PO ONE (10:00)
[2017-06-02] MEDS: PRENATAL VITAMINS W/ FOLIC ACID TABLET (FP) PO SCH (11:03)
[2017-06-02] MEDS: NICOTINE 14 MG/24 HOURS TOPICAL PATCH TD SCH (11:03)
--- NOTE | 2017-06-02 11:09 | PN ---
BHS Progress Note (SOAP) Subjective: anxiety, generalized body aches, interrupted sleep Objective: 06/02/17 11:08 Vital Signs - 8 hr 06/02/17 06/02/17 06/02/17 03:30 06:52 10:00 Temperature 97.6 F 98.1 F Pulse Rate 82 89 Respiratory 19 16 18 Rate Blood Pressure 100/53 93/65 Laboratory Last Values WBC 4.6 K/mm3 (4.0-10.0) 05/30/17 07:00 RBC 3.98 M/mm3 (3.60-5.2) 05/30/17 07:00 Hgb 11.2 GM/dL (10.7-15.3) 05/30/17 07:00 Hct 34.2 % (32.4-45.2) 05/30/17 07:00 MCV 85.8 fl (80-96) 05/30/17 07:00 MCH 28.0 pg (25.7-33.7) 05/30/17 07:00 MCHC 32.7 g/dl (32.0-36.0) 05/30/17 07:00 RDW 17.3 % (11.6-15.6) H 05/30/17 07:00 Plt Count 173 K/MM3 (134-434) 05/30/17 07:00 MPV 10.4 fl (7.5-11.1) 05/30/17 07:00 Sodium 141 mmol/L (136-145) 05/30/17 07:00 Potassium 4.2 mmol/L (3.5-5.1) 05/30/17 07:00 Chloride 106 mmol/L (98-107) 05/30/17 07:00 Carbon Dioxide 28 mmol/L (21-32) 05/30/17 07:00 Anion Gap 7 (8-16) L 05/30/17 07:00 BUN 13 mg/dL (7-18) D 05/30/17 07:00 Creatinine 0.7 mg/dL (0.55-1.02) 05/30/17 07:00 Creat Clearance w eGFR > 60 (>60) 05/30/17 07:00 Random Glucose 83 mg/dL (74-106) D 05/30/17 07:00 Calcium 8.6 mg/dL (8.5-10.1) 05/30/17 07:00 Total Bilirubin 0.3 mg/dL (0.2-1.0) D 05/30/17 07:00 AST 21 U/L (15-37) 05/30/17 07:00 ALT 24 U/L (12-78) D 05/30/17 07:00 Alkaline Phosphatase 104 U/L (45-117) 05/30/17 07:00 Total Protein 5.6 g/dl (6.4-8.2) L 05/30/17 07:00 Albumin 2.9 g/dl (3.4-5.0) L 05/30/17 07:00 Urine Color Yellow 05/29/17 21:57 Urine Appearance Slcloudy 05/29/17 21:57 Urine pH 6.0 (5.0-8.0) 05/29/17 21:57 Ur Specific [place] >= 1.030 (1.005-1.025) H 05/29/17 21:57 Urine Protein 2+ (NEGATIVE) H 05/29/17 21:57 Urine Glucose (UA) Negative (NEGATIVE) 05/29/17 21:57 Urine Ketones Negative (NEGATIVE) 05/29/17 21:57 Urine Blood 3+ (NEGATIVE) H 05/29/17 21:57 Urine Nitrite Negative (NEGATIVE) 05/29/17 21:57 Urine Bilirubin Negative (NEGATIVE) 05/29/17 21:57 Urine Urobilinogen Negative mg/dL (0.2-1.0) 05/29/17 21:57 Ur Leukocyte Esterase Negative (NEGATIVE) 05/29/17 21:57 Urine RBC 319 /hpf (0-3) 05/29/17 21:57 Urine WBC 47 /hpf (3-5) 05/29/17 21:57 Ur Epithelial Cells Few /hpf (FEW) 05/29/17 21:57 Urine Mucus Rare 05/29/17 21:57 RPR Titer Nonreactive (NONREACTIVE) 05/30/17 07:00 HIV 1&2 Antibody Screen Negative 05/30/17 07:00 HIV P24 Antigen Negative 05/30/17 07:00 labs noted Assessment: 06/02/17 11:09 withdrawal sx Plan: vistaril 50mg every 4hrs as needed continue detox
[2017-06-02] MEDS: hydrOXYzine PAMOATE 50 MG CAPSULE (FP) PO PRN ×3 (11:51→22:57)
[2017-06-02] MEDS: THIAMINE HCL 100 MG TABLET (FP) PO SCH (22:57)
[2017-06-03] MEDS: hydrOXYzine PAMOATE 50 MG CAPSULE (FP) PO PRN (03:10)
[2017-06-03] MEDS ORDERED: METHADONE HCL 5 MG TABLET (FOR DETOX USE ONLY) PO ONE (06:00)
[2017-06-03 10:51] VITALS: BP 98/66; PULSE 97; TEMP 97.3
== END 2017-06-03 10:01 | disposition home or self-care (01) | DRG 773 ==
LOC: YASAS 14:49 → Y6N 18:19
PROVIDERS: ADMIT Internal Medicine Addiction Medicine; ATTEND Internal Medicine Addiction Medicine
PROC: HZ2ZZZZ Detoxification Services for Substance Abuse Treatment (ICD-10-PCS; principal; 2017-05-29)
DX: F11.23 Opioid dependence with withdrawal (principal); F14.20 Cocaine dependence, uncomplicated; F17.213 Nicotine dependence, cigarettes, with withdrawal; Z87.898 Personal history of other specified conditions
CPT/HCPCS: 36415; 80053; 81003; 81015; 85027; 86593; 87389; 93005; 93010

== ENCOUNTER 2017-08-31 12:39 | Inpatient (IN) | payer OTHER ==
[2017-08-31 15:22] VITALS: BMI 29.8
[2017-08-31] MEDS ORDERED: MAGNESIUM CITRATE 300 ML BOTTLE PO PRN (19:17)
[2017-08-31] MEDS ORDERED: guaiFENesin/D-METHORPHAN HB 10 ML UNIT-DOSE CUPS PO PRN (19:17)
[2017-08-31] MEDS ORDERED: METHADONE HCL 10 MG TABLET (FOR DETOX USE ONLY) PO ONE ×2 (19:17→23:00)
[2017-08-31] MEDS ORDERED: P-EPHED 60MG/TRIPROLIDI 2.5MG TABLET PO PRN (19:17)
[2017-08-31] MEDS ORDERED: NICOTINE POLACRILEX 2 MG GUM BUC PRN (19:17)
[2017-08-31] MEDS ORDERED: MAGNESIUM HYDROX 2400MG/30ML ORAL SUSPENSION 30 ML CUP PO PRN (19:17)
[2017-08-31] MEDS ORDERED: LOPERAMIDE HCL 2 MG CAPSULE PO PRN (19:17)
[2017-08-31] MEDS ORDERED: MENTHOL/PHENOL 1 EACH UD MM PRN (19:17)
[2017-08-31] MEDS ORDERED: MAG HYDROX/AL HYDROX/SIMETH 30 ML UNIT-DOSE CUP PO PRN (19:17)
[2017-08-31] MEDS ORDERED: ACETAMINOPHEN 325 MG TABLET (FP) PO PRN (19:17)
[2017-08-31] MEDS ORDERED: IBUPROFEN 400 MG TABLET (FP) PO PRN (19:17)
--- NOTE | 2017-08-31 19:21 | HP ---
COWS - Scale Resting Pulse: 0= [place] 80 or Below Sweatin= Beads of Sweat on Face Restless Observation: 1= Difficult to Sit Still Pupil Size: 1= Pupils >than Normal Bone or Joint Aches: 1= Mild Discomfort Runny Nose/ Eye Tearin= Nasal Congestion GI Upset > 30mins: 2= Nausea/Diarrhea Tremor Observation: 2= Slight Tremor Visible Yawning Observation: 1= 1-2x During Session Anxiety or Irritability: 2=Irritable/Anxious Goose Flesh Skin: 3=Piloerection COWS Score: 17 Admission ROS S - HPI Chief Complaint: heroin withdrawal sx Allergies/Adverse Reactions: Allergies Allergy/AdvReac Type Severity Reaction Status Date / Time No Known Allergies Allergy Verified 07/26/17 16:52 History of Present Illness: 52 yo f with h/o opioid use disorder now in withdrawal requesting inpatient detoxification, also reports daily cack cocaine and nicotien dependenc. PMHX anxieyt, derssion and insomnia, no suicidal ideation no sucide attempts in past , denies alcoho or other illicit drug use. thirsty Exam Limitations: No Limitations - Ebola screening Have you traveled outside of the country in the last 21 days: No Have you had contact with anyone from an Ebola affected area: No Have you been sick,other than usual withdrawal symptoms: No Do you have a fever: No - Review of Systems Constitutional: Chills, Diaphoresis, Loss of Appetite, Night Sweats, Changes in sleep, Weakness EENT: reports: Nose Congestion Respiratory: reports: No Symptoms reported Cardiac: reports: No Symptoms Reported GI: reports: Nausea, Poor Appetite, Poor Fluid Intake, Indigestion, Abdominal cramping : reports: No Symptoms Reported Musculoskeletal: reports: Back Pain, Joint Pain, Muscle Pain Integumentary: reports: Flushing, Sweating Neuro: reports: Tremors, Weakness Hematology: reports: No Symptoms Reported Psychiatric: reports: Judgement Intact, Mood/Affect Appropiate, Orientated x3, Anxious, Depressed Other Systems: Reviewed and Negative Patient History - Patient Medical History Hx Anemia: No Hx Asthma: No Hx Chronic Obstructive Pulmonary Disease (COPD): No Hx Cancer: No Hx Cardiac Disorders: No Hx Congestive Heart Failure: No Hx Hypertension: No Hx Hypercholesterolemia: No Hx Pacemaker: No HX Cerebrovascular Accident: No Hx Seizures: No Hx Dementia: No Hx Diabetes: No Hx Gastrointestinal Disorders: No Hx Liver Disease: No Hx Genitourinary Disorders: No Hx Sexually Transmitted Disorders: No Hx Renal Disease (ESRD): No Hx Thyroid Disease: No Hx Human Immunodeficiency Virus (HIV): No (LAST 05/08/16) Hx Hepatitis C: No Hx Depression: Yes Hx Suicide Attempt: No (no si at thsi time) Hx Bipolar Disorder: No Hx Schizophrenia: No Other Medical History: hot flashes from menopause - Patient Surgical History Past Surgical History: No Hx Neurologic Surgery: No Hx Cataract Extraction: No Hx Cardiac Surgery: No Hx Lung Surgery: No Hx Breast Surgery: No Hx Breast Biopsy: No Hx Abdominal Surgery: No Hx Appendectomy: No Hx Cholecystectomy: No Hx Genitourinary Surgery: No Hx Section: No Hx Orthopedic Surgery: No Hx Hysterectomy: No Anesthesia Reaction: No - PPD History Previous Implant?: No Date: 05/31/17 Results: 0 MM PPD to be Administered?: No - Reproductive History Patient is a Female of Child Bearing Age (11 -55 yrs old): Yes Last Menstrual Period: 05/26/17 Patient : No - Smoking Cessation Smoking history: Current every day smoker Have you smoked in the past 12 months: Yes Aproximately how many cigarettes per day: 15 Cigars Per Day: 0 Hx Chewing Tobacco Use: No Initiated information on smoking cessation: Yes 'Breaking Loose' booklet given: 08/31/17 - Substance & Tx. History Hx Alcohol Use: No Hx Substance Use: Yes Substance Use Type: Cocaine, Heroin, Opiates Hx Substance Use Treatment: Yes (detox at [facility]) - Substances Abused Heroin Route: Inhalation Frequency: Daily Amount used: 7 bags Age of first use: 51 Date of Last Use: 08/30/17 Cocaine Route: Smoking Frequency: Daily Amount used: 3 bags Age of first use: 32 Date of Last Use: 08/30/17 Family Disease History - Family Disease History Family Disease History: Other: Father (NO CONTACT), Mother ( LIVER ) Admission Physical Exam BHS - Vital Signs Vital Signs: Vital Signs - 24 hr 08/31/17 15:11 Temperature 97.0 F L Pulse Rate 71 Respiratory 20 Rate Blood Pressure 109/69 - Physical General Appearance: Yes: Nourished, Appropriately Dressed, Disheveled, Mild Distress, Tremorous, Irritable, Sweating, Anxious HEENTM: Yes: EOMI, Hearing grossly Normal, Normocephalic, Normal Voice, KAREN, Pharynx Normal, Nasal Congestion, Rhinorrhea Respiratory: Yes: Within Normal Limits, Chest Non-Tender, Lungs Clear, Normal Breath Sounds, No Respiratory Distress, No Accessory Muscle Use Neck: Yes: Within Normal Limits, No masses,lesions,Nodules, Supple, Trachea in good position Breast: Yes: Breast Exam Deferred Cardiology: Yes: Within Normal Limits, Regular Rhythm, Regular Rate, S1, S2 Abdominal: Yes: Normal Bowel Sounds, Non Tender, Flat, Soft, Increased Bowel Sounds Genitourinary: Yes: Within Normal Limits Back: Yes: Within Normal Limits, Normal Inspection Musculoskeletal: Yes: Within Normal Limits, full range of Motion, Gait Steady, Pelvis Stable Extremities: Yes: Normal Capillary Refill, Normal Range of Motion, Non-Tender, Tremors, 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, Alert, Motor Strength 5/5, Normal Response, Depressed Affect, Other Integumentary: Yes: Normal Color, Warm, Diaphoresis, Moist, Other (poor skin turgor) Lymphatic: Yes: Within Normal Limits - Addiitonal Findings: withdrawal sx noted, dehydration, depression - Diagnostic (1) Dehydration Current Visit: Yes Status: Acute (2) Drug-induced mood disorder Current Visit: No Status: Acute (3) Cocaine dependence, uncomplicated Current Visit: No Status: Chronic (4) Nicotine dependence Current Visit: No Status: Chronic Qualifiers: Nicotine product type: cigarettes Substance use status: uncomplicated Qualified Code(s): F17.210 - Nicotine dependence, cigarettes, uncomplicated (5) Opioid dependence with withdrawal Current Visit: No Status: Chronic (6) Weight loss Current Visit: No Status: Chronic (7) Depression (emotion) Current Visit: No Status: Suspected Qualifiers: Depression Type: dysthymia Qualified Code(s): F34.1 - Dysthymic disorder Cleared for Admission [facility] - Detox or Rehab [facility] Level of Care: Medically Managed Detox Regimen/Protocol: Methadone [facility] Breath Alcohol Content Breath Alcohol Content: 0 Urine Pregancy Test - Result Urine Test Results: Negative- NO Line Present Urine Drug Screen - Results Drug Screen Negative: No Urine Drug Screen Results: REILLY-Cocaine, OPI-Opiates, BZO-Benzodiazepines, MTD- Methadone, TCA-Tricyclic Antidepress, OXY-Oxycodone
[2017-08-31] MEDS: diazePAM 5 MG TABLET PO PRN (20:06)
[2017-08-31] MEDS: NICOTINE 14 MG/24 HOURS TOPICAL PATCH TD SCH (20:09)
[2017-08-31] MEDS: THIAMINE HCL 100 MG TABLET (FP) PO SCH (22:16)
[2017-08-31 23:11] LABS: URINE APPEARANCE CLOUDY; URINE BILIRUBIN NEGATIVE (NEGATIVE); URINE BLOOD NEGATIVE (NEGATIVE); URINE COLOR YELLOW; URINE GLUCOSE (UA) NEGATIVE (NEGATIVE); URINE KETONE NEGATIVE (NEGATIVE); URINE LEUK ESTERASE NEGATIVE (NEGATIVE); URINE NITRITE NEGATIVE (NEGATIVE); URINE PROTEIN NEGATIVE (NEGATIVE); URINE UROBILINOGEN NEGATIVE mg/dL (0.2-1.0)
[2017-09-01] MEDS: diazePAM 5 MG TABLET PO PRN ×4 (04:16→22:41)
[2017-09-01 09:45] LABS: MCH 28.8 pg (25.7-33.7); MCHC 32.9 g/dl (32.0-36.0); MEAN CELL VOLUME 87.7 fl (80-96); MEAN PLT VOLUME 10.4 fl (7.5-11.1); PLATELET COUNT 154 K/MM3 (134-434); RDW 15.7 % (11.6-15.6); WHITE BLOOD COUNT 4.8 K/mm3 (4.0-10.0)
[2017-09-01] MEDS ORDERED: METHADONE HCL 10 MG TABLET (FOR DETOX USE ONLY) PO ONE (10:00)
[2017-09-01 10:10] LABS: ALBUMIN 3.3 g/dl (3.4-5.0); ALK PHOS 99 U/L (45-117); ANION GAP 6 (8-16); BILIRUBIN,TOTAL 0.3 mg/dL (0.2-1.0); CALCIUM 9.1 mg/dL (8.5-10.1); CO2 30 mmol/L (21-32); CREATININE 0.9 mg/dL (0.55-1.02); GLUCOSE,RANDOM 102 mg/dL (74-106); SGOT/AST 19 U/L (15-37); SGPT/ALT 17 U/L (12-78); TOT PROT 6.1 g/dl (6.4-8.2)
[2017-09-01] MEDS: PRENATAL VITAMINS W/ FOLIC ACID TABLET (FP) PO SCH (10:38)
[2017-09-01] MEDS: NICOTINE 14 MG/24 HOURS TOPICAL PATCH TD SCH (10:38)
[2017-09-01 12:10] LABS: URINE LEUK ESTERASE Negative (NEGATIVE)
--- NOTE | 2017-09-01 12:21 | CONSULT ---
[facility] Psychiatric Consult - Data Date of interview: 09/01/17 Admission source: Self-referred Identifying data: Ms Elkins is a 52 years old single Black female, mother of 11 children, unemployed on food stamp, living with a friend Substance Abuse History: Reports history of heroin and cocaine use. Refer to addiction counselor's note for further information Medical History: Unremarkable. Smokes 15 cigarettes daily Psychiatric History: Denies history of previous psychiatric treatment. However reports suffering from insomnia and she was prescribed Seroquel 100 mg po HS for insomnia on a previous admisson to detox in this facility. Physical/Sexual Abuse/Trauma History: Denies history of verbal, physical or sexual abuse as well as DV relationship Additional Comment: Reports history of 3 previous arrests. No felony Mental Status Exam - Mental Status Exam Alert and Oriented to: Time, Place, Person Cognitive Function: Fair Patient Appearance: Well Groomed Mood: Hopeful, Euthymic Affect: Appropriate Patient Behavior: Cooperative Speech Pattern: Clear Voice Loudness: Normal Thought Process: Intact, Goal Oriented Thought Disorder: Not Present Hallucinations: Denies Suicidal Ideation: Denies Homicidal Ideation: Denies Insight/Judgement: Poor Sleep: Poorly Appetite: Good Muscle strength/Tone: Normal Gait/Station: Normal Psychiatric Findings - Problem List (Ama 1, 2,3) (1) Substance-induced sleep disorder Current Visit: Yes Status: Acute (2) Opioid dependence with withdrawal Current Visit: No Status: Acute (3) Cocaine dependence, uncomplicated Current Visit: No Status: Acute (4) Nicotine dependence Current Visit: No Status: Chronic Qualifiers: Nicotine product type: cigarettes Substance use status: uncomplicated Qualified Code(s): F17.210 - Nicotine dependence, cigarettes, uncomplicated - Initial Treatment Plan Initial Treatment Plan: 1) Start Ambien 10 mg po HS prn insomnia. Benefits vs Risks of medication discusse with patient and he agreed to try it. 2) Continue inpatient detoxification
[2017-09-01] MEDS ORDERED: ZOLPIDEM TARTRATE 5 MG TABLET PO PRN (12:28)
--- NOTE | 2017-09-01 14:09 | PN ---
BHS COWS - Scale Resting Pulse: 0= [place] 80 or Below Sweatin=Flushed/Facial Moisture Restless Observation: 1= Difficult to Sit Still Pupil Size: 0= Normal to Room Light Bone or Joint Aches: 2= Severe Diffuse Aches Runny Nose/ Eye Tearin= Runny Nose/Eyes GI Upset > 30mins: 2= Nausea/Diarrhea Tremor Observation of Outstretched Hands: 2= Slight Tremor Visible Yawning Observation: 1= 1-2x During Session Anxiety or Irritability: 2=Irritable/Anxious Goose Flesh Skin: 0=Smooth Skin COWS Score: 14 BHS Progress Note (SOAP) Subjective: Anxiety,sweating,interrupted sleep,restless Objective: 09/01/17 14:08 Vital Signs - 8 hr 09/01/17 09/01/17 06:16 10:00 Temperature 97 F L 97.5 F L Pulse Rate 76 18 L Respiratory 18 66 H Rate Blood Pressure 128/50 128/91 Laboratory Last Values WBC 4.8 K/mm3 (4.0-10.0) 09/01/17 07:50 RBC 4.27 M/mm3 (3.60-5.2) 09/01/17 07:50 Hgb 12.3 GM/dL (10.7-15.3) 09/01/17 07:50 Hct 37.4 % (32.4-45.2) 09/01/17 07:50 MCV 87.7 fl (80-96) 09/01/17 07:50 MCH 28.8 pg (25.7-33.7) 09/01/17 07:50 MCHC 32.9 g/dl (32.0-36.0) 09/01/17 07:50 RDW 15.7 % (11.6-15.6) H 09/01/17 07:50 Plt Count 154 K/MM3 (134-434) 09/01/17 07:50 MPV 10.4 fl (7.5-11.1) 09/01/17 07:50 Platelet Comment 09/01/17 07:50 Sodium 143 mmol/L (136-145) 09/01/17 07:50 Potassium 3.8 mmol/L (3.5-5.1) 09/01/17 07:50 Chloride 107 mmol/L (98-107) 09/01/17 07:50 Carbon Dioxide 30 mmol/L (21-32) 09/01/17 07:50 Anion Gap 6 (8-16) L 09/01/17 07:50 BUN 14 mg/dL (7-18) 09/01/17 07:50 Creatinine 0.9 mg/dL (0.55-1.02) 09/01/17 07:50 Creat Clearance w eGFR > 60 (>60) 09/01/17 07:50 Random Glucose 102 mg/dL (74-106) D 09/01/17 07:50 Calcium 9.1 mg/dL (8.5-10.1) 09/01/17 07:50 Total Bilirubin 0.3 mg/dL (0.2-1.0) D 09/01/17 07:50 AST 19 U/L (15-37) 09/01/17 07:50 ALT 17 U/L (12-78) 09/01/17 07:50 Alkaline Phosphatase 99 U/L (45-117) 09/01/17 07:50 Total Protein 6.1 g/dl (6.4-8.2) L 09/01/17 07:50 Albumin 3.3 g/dl (3.4-5.0) L 09/01/17 07:50 Urine Color Yellow 08/31/17 21:07 Urine Appearance Cloudy 08/31/17 21:07 Urine pH 5.0 (5.0-8.0) 08/31/17 21:07 Ur Specific [place] 1.027 (1.001-1.035) 08/31/17 21:07 Urine Protein Negative (NEGATIVE) 08/31/17 21:07 Urine Glucose (UA) Negative (NEGATIVE) 08/31/17 21:07 Urine Ketones Negative (NEGATIVE) 08/31/17 21:07 Urine Blood Negative (NEGATIVE) 08/31/17 21:07 Urine Nitrite Negative (NEGATIVE) 08/31/17 21:07 Urine Bilirubin Negative (NEGATIVE) 08/31/17 21:07 Urine Urobilinogen Negative mg/dL (0.2-1.0) 08/31/17 21:07 Ur Leukocyte Esterase Negative (NEGATIVE) 08/31/17 21:07 RPR Titer Nonreactive (NONREACTIVE) 09/01/17 07:50 labs noted Assessment: 09/01/17 14:09 Withdrawal sx. Plan: Continue detox
[2017-09-01] MEDS: THIAMINE HCL 100 MG TABLET (FP) PO SCH (22:41)
[2017-09-01] MEDS: ZOLPIDEM TARTRATE 5 MG TABLET PO PRN (22:41)
[2017-09-02] MEDS: diazePAM 5 MG TABLET PO PRN ×4 (04:19→18:59)
--- NOTE | 2017-09-02 08:48 | EKG ---
Test Reason : Blood Pressure : / mmHG Vent. Rate : 063 BPM Atrial Rate : 063 BPM P-R Int : 130 ms QRS Dur : 088 ms QT Int : 406 ms P-R-T Axes : 064 014 027 degrees QTc Int : 415 ms SINUS RHYTHM WITH MARKED SINUS ARRHYTHMIA VOLTAGE CRITERIA FOR LEFT VENTRICULAR HYPERTROPHY ABNORMAL ECG WHEN COMPARED WITH ECG OF 27-JUL-2017 08:58, NO SIGNIFICANT CHANGE WAS FOUND Confirmed by RUBINA DAVALOS, SOHAN ([id number]) on 09/02/2017 8:47:33 AM Referred By: Confirmed By:SOHAN CESPEDES MD
[2017-09-02] MEDS ORDERED: METHADONE HCL 5 MG TABLET (FOR DETOX USE ONLY) PO ONE (10:00)
[2017-09-02] MEDS: PRENATAL VITAMINS W/ FOLIC ACID TABLET (FP) PO SCH (10:19)
[2017-09-02] MEDS: hydrOXYzine PAMOATE 50 MG CAPSULE (FP) PO PRN (10:20)
[2017-09-02] MEDS: NICOTINE 14 MG/24 HOURS TOPICAL PATCH TD SCH (10:20)
--- NOTE | 2017-09-02 14:28 | PN ---
BHS COWS - Scale Resting Pulse: 0= [place] 80 or Below Sweatin= Chills/Flushing Restless Observation: 1= Difficult to Sit Still Pupil Size: 0= Normal to Room Light Bone or Joint Aches: 1= Mild Discomfort Runny Nose/ Eye Tearin= Nasal Congestion GI Upset > 30mins: 1= Stomach Cramp Tremor Observation of Outstretched Hands: 1= Tremor [place], Not Seen Yawning Observation: 0= None Anxiety or Irritability: 2=Irritable/Anxious Goose Flesh Skin: 0=Smooth Skin COWS Score: 8 BHS Progress Note (SOAP) Subjective: irritable tremor body ache Objective: 09/02/17 14:31 Vital Signs Temperature 97.7 F 09/02/17 10:23 Pulse Rate 77 09/02/17 10:23 Respiratory Rate 18 09/02/17 10:23 Blood Pressure 133/79 09/02/17 10:23 O2 Sat by Pulse Oximetry (%) Laboratory Last Values WBC 4.8 K/mm3 (4.0-10.0) 09/01/17 07:50 RBC 4.27 M/mm3 (3.60-5.2) 09/01/17 07:50 Hgb 12.3 GM/dL (10.7-15.3) 09/01/17 07:50 Hct 37.4 % (32.4-45.2) 09/01/17 07:50 MCV 87.7 fl (80-96) 09/01/17 07:50 MCH 28.8 pg (25.7-33.7) 09/01/17 07:50 MCHC 32.9 g/dl (32.0-36.0) 09/01/17 07:50 RDW 15.7 % (11.6-15.6) H 09/01/17 07:50 Plt Count 154 K/MM3 (134-434) 09/01/17 07:50 MPV 10.4 fl (7.5-11.1) 09/01/17 07:50 Platelet Comment 09/01/17 07:50 Sodium 143 mmol/L (136-145) 09/01/17 07:50 Potassium 3.8 mmol/L (3.5-5.1) 09/01/17 07:50 Chloride 107 mmol/L (98-107) 09/01/17 07:50 Carbon Dioxide 30 mmol/L (21-32) 09/01/17 07:50 Anion Gap 6 (8-16) L 09/01/17 07:50 BUN 14 mg/dL (7-18) 09/01/17 07:50 Creatinine 0.9 mg/dL (0.55-1.02) 09/01/17 07:50 Creat Clearance w eGFR > 60 (>60) 09/01/17 07:50 Random Glucose 102 mg/dL (74-106) D 09/01/17 07:50 Calcium 9.1 mg/dL (8.5-10.1) 09/01/17 07:50 Total Bilirubin 0.3 mg/dL (0.2-1.0) D 09/01/17 07:50 AST 19 U/L (15-37) 09/01/17 07:50 ALT 17 U/L (12-78) 09/01/17 07:50 Alkaline Phosphatase 99 U/L (45-117) 09/01/17 07:50 Total Protein 6.1 g/dl (6.4-8.2) L 09/01/17 07:50 Albumin 3.3 g/dl (3.4-5.0) L 09/01/17 07:50 Urine Color Yellow 08/31/17 21:07 Urine Appearance Cloudy 08/31/17 21:07 Urine pH 5.0 (5.0-8.0) 08/31/17 21:07 Ur Specific [place] 1.027 (1.001-1.035) 08/31/17 21:07 Urine Protein Negative (NEGATIVE) 08/31/17 21:07 Urine Glucose (UA) Negative (NEGATIVE) 08/31/17 21:07 Urine Ketones Negative (NEGATIVE) 08/31/17 21:07 Urine Blood Negative (NEGATIVE) 08/31/17 21:07 Urine Nitrite Negative (NEGATIVE) 08/31/17 21:07 Urine Bilirubin Negative (NEGATIVE) 08/31/17 21:07 Urine Urobilinogen Negative mg/dL (0.2-1.0) 08/31/17 21:07 Ur Leukocyte Esterase Negative (NEGATIVE) 08/31/17 21:07 RPR Titer Nonreactive (NONREACTIVE) 09/01/17 07:50 lab noted Assessment: 09/02/17 14:31 withdrawal sx Plan: continue detox
[2017-09-02] MEDS: ZOLPIDEM TARTRATE 5 MG TABLET PO PRN (22:14)
[2017-09-02] MEDS: THIAMINE HCL 100 MG TABLET (FP) PO SCH (22:14)
[2017-09-03] MEDS: diazePAM 5 MG TABLET PO PRN ×4 (01:32→18:29)
[2017-09-03] MEDS ORDERED: METHADONE HCL 5 MG TABLET (FOR DETOX USE ONLY) PO ONE (10:00)
[2017-09-03] MEDS: NICOTINE 14 MG/24 HOURS TOPICAL PATCH TD SCH (10:07)
[2017-09-03] MEDS: PRENATAL VITAMINS W/ FOLIC ACID TABLET (FP) PO SCH (10:07)
--- NOTE | 2017-09-03 11:19 | PN ---
BHS Progress Note (SOAP) Subjective: interrupted sleep agitation sweats Objective: 09/03/17 11:18 Vital Signs Temperature 97.3 F L 09/03/17 09:54 Pulse Rate 67 09/03/17 09:54 Respiratory Rate 20 09/03/17 09:54 Blood Pressure 133/97 09/03/17 09:54 O2 Sat by Pulse Oximetry (%) Laboratory Tests 08/31/17 09/01/17 09/01/17 21:07 07:50 07:50 WBC 4.8 RBC 4.27 Hgb 12.3 Hct 37.4 MCV 87.7 MCH 28.8 MCHC 32.9 RDW 15.7 H Plt Count 154 MPV 10.4 Platelet Comment Sodium 143 Potassium 3.8 Chloride 107 Carbon Dioxide 30 Anion Gap 6 L BUN 14 Creatinine 0.9 Creat Clearance w eGFR > 60 Random Glucose 102 D Calcium 9.1 Total Bilirubin 0.3 D AST 19 ALT 17 Alkaline Phosphatase 99 Total Protein 6.1 L Albumin 3.3 L Urine Color Yellow Urine Appearance Cloudy Urine pH 5.0 Ur Specific [place] 1.027 Urine Protein Negative Urine Glucose (UA) Negative Urine Ketones Negative Urine Blood Negative Urine Nitrite Negative Urine Bilirubin Negative Urine Urobilinogen Negative Ur Leukocyte Esterase Negative RPR Titer 09/01/17 07:50 WBC RBC Hgb Hct MCV MCH MCHC RDW Plt Count MPV Platelet Comment Sodium Potassium Chloride Carbon Dioxide Anion Gap BUN Creatinine Creat Clearance w eGFR Random Glucose Calcium Total Bilirubin AST ALT Alkaline Phosphatase Total Protein Albumin Urine Color Urine Appearance Urine pH Ur Specific [place] Urine Protein Urine Glucose (UA) Urine Ketones Urine Blood Urine Nitrite Urine Bilirubin Urine Urobilinogen Ur Leukocyte Esterase RPR Titer Nonreactive aaox3 ambulating no acute distress Assessment: 09/03/17 11:18 withdrawal sx Plan: continue detox increase fluids
[2017-09-03] MEDS: THIAMINE HCL 100 MG TABLET (FP) PO SCH (22:16)
[2017-09-03] MEDS: ZOLPIDEM TARTRATE 5 MG TABLET PO PRN (22:16)
[2017-09-04] MEDS: hydrOXYzine PAMOATE 50 MG CAPSULE (FP) PO PRN ×5 (03:22→23:51)
[2017-09-04] MEDS ORDERED: METHADONE HCL 10 MG TABLET (FOR DETOX USE ONLY) PO ONE (10:00)
[2017-09-04] MEDS: PRENATAL VITAMINS W/ FOLIC ACID TABLET (FP) PO SCH (10:20)
[2017-09-04] MEDS: NICOTINE 14 MG/24 HOURS TOPICAL PATCH TD SCH (10:21)
--- NOTE | 2017-09-04 10:46 | PN ---
BHS Progress Note (SOAP) Subjective: sweats interrupted sleep Objective: 09/04/17 10:45 Vital Signs Temperature 97.8 F 09/04/17 09:48 Pulse Rate 77 09/04/17 09:48 Respiratory Rate 18 09/04/17 09:48 Blood Pressure 129/54 09/04/17 09:48 O2 Sat by Pulse Oximetry (%) aaox3 ambulating no acute distress Assessment: 09/04/17 10:46 mild withdrawal sx Plan: continue detox increase fluids d/c in am
[2017-09-04] MEDS: ZOLPIDEM TARTRATE 5 MG TABLET PO PRN (22:19)
[2017-09-04] MEDS: THIAMINE HCL 100 MG TABLET (FP) PO SCH (22:19)
[2017-09-05] MEDS: hydrOXYzine PAMOATE 50 MG CAPSULE (FP) PO PRN ×2 (05:57→10:30)
[2017-09-05] MEDS ORDERED: METHADONE HCL 5 MG TABLET (FOR DETOX USE ONLY) PO ONE (06:00)
--- NOTE | 2017-09-05 08:26 | DS ---
[facility] Detox Discharge Summary Admission Date: 08/31/17 Discharge Date: 09/05/17 - History Present History: Alcohol Dependence, Cocaine Dependence, Opioid Dependence - Physical Exam Results Vital Signs: Vital Signs Temperature 97.9 F 09/05/17 06:51 Pulse Rate 76 09/05/17 06:51 Respiratory Rate 18 09/05/17 06:51 Blood Pressure 116/76 09/05/17 06:51 O2 Sat by Pulse Oximetry (%) - Treatment Hospital Course: Detox Protocol Followed, Detoxed Safely, Responded well, Discharged Condition Good - Medication Discharge Medications: Ambulatory Orders Quetiapine Fumarate [Seroquel] 100 mg PO HS #30 tablet 07/30/17 - Diagnosis (1) Cocaine dependence, uncomplicated Current Visit: Yes Status: Chronic (2) Dehydration Current Visit: Yes Status: Acute (3) Alcohol abuse Current Visit: No Status: Chronic (4) Crack cocaine use Current Visit: No Status: Chronic (5) Nicotine dependence Current Visit: No Status: Chronic Qualifiers: Nicotine product type: cigarettes Substance use status: uncomplicated Qualified Code(s): F17.210 - Nicotine dependence, cigarettes, uncomplicated (6) Weight loss Current Visit: No Status: Chronic - AMA Did Patient Leave Against Medical Advice: No
[2017-09-05 09:48] VITALS: BP 100/70; PULSE 85; TEMP 97.7
[2017-09-05] MEDS: PRENATAL VITAMINS W/ FOLIC ACID TABLET (FP) PO SCH (10:30)
[2017-09-05] MEDS: NICOTINE 14 MG/24 HOURS TOPICAL PATCH TD SCH (10:30)
== END 2017-09-05 12:54 | disposition home or self-care (01) | DRG 773 ==
LOC: YASAS 12:39 → Y6N 17:54
PROVIDERS: ADMIT Internal Medicine; ATTEND Internal Medicine
PROC: HZ2ZZZZ Detoxification Services for Substance Abuse Treatment (ICD-10-PCS; principal; 2017-08-31)
DX: F11.23 Opioid dependence with withdrawal (principal); F10.10 Alcohol abuse, uncomplicated; F14.20 Cocaine dependence, uncomplicated; F17.210 Nicotine dependence, cigarettes, uncomplicated; F19.282 Other psychoactive substance dependence with psychoactive substance-induced sleep disorder; F34.1 Dysthymic disorder; E86.0 Dehydration; R63.4 Abnormal weight loss; Z68.29 Body mass index [BMI] 29.0-29.9, adult
CPT/HCPCS: 36415; 80053; 81003; 85027; 86593; 93005; 93010

== ENCOUNTER 2017-09-05 13:04 | Inpatient (IN) | payer OTHER ==
[2017-09-05] MEDS ORDERED: MAGNESIUM HYDROX 2400MG/30ML ORAL SUSPENSION 30 ML CUP PO PRN (14:06)
[2017-09-05] MEDS ORDERED: MAGNESIUM CITRATE 300 ML BOTTLE PO PRN (14:06)
[2017-09-05] MEDS ORDERED: IBUPROFEN 400 MG TABLET (FP) PO PRN (14:06)
[2017-09-05] MEDS ORDERED: LOPERAMIDE HCL 2 MG CAPSULE PO PRN (14:06)
[2017-09-05] MEDS ORDERED: MENTHOL/PHENOL 1 EACH UD MM PRN (14:06)
[2017-09-05] MEDS ORDERED: ONDANSETRON *ODT* 4 MG TABLET SL PRN (15:55)
--- NOTE | 2017-09-05 16:27 | HP ---
AMADEO DAVALOS Rehab Assess/Revision - Admission History Admitted to Rehab from: [facility] Date of Admission to Rehab: 09/05/17 - Vital signs Vital Signs: Vital Signs Period Temp Pulse Resp BP Sys/Mejia Pulse Ox Last 24 Hr 98.7 F 92 16 120/78 - Findings Detox History & Physical reviewed: Yes Concur with findings: Yes Comments/Additional Findings: transferred from detox to rehab admission as per [facility] Inpatient Rehab Admission - Initial Determination Are CD services needed?: Yes Free of communicable disease: Yes Not in need of hospitalization: Yes - Rehab Admission Criteria Previous failed treatment: Yes Poor recovery environment: Yes Comorbidities: Yes Lacks judgement: No Patient is meeting Inpatient Rehab admission criteria:: Yes
[2017-09-05] MEDS ORDERED: ONDANSETRON *ODT* 4 MG TABLET SL ONE (16:30)
[2017-09-05] MEDS: PANTOPRAZOLE 40 MG TABLET (FP) PO SCH (16:57)
[2017-09-05] MEDS: CYCLOBENZAPRINE HCL 10 MG TABLET (FP) PO SCH ×2 (16:58→21:09)
[2017-09-05] MEDS: THIAMINE HCL 100 MG TABLET (FP) PO SCH (21:09)
[2017-09-05] MEDS: NAPROXEN 500 MG TABLET (FP) PO SCH (21:10)
[2017-09-05] MEDS: cloNIDine HCL 0.1 MG TABLET PO SCH (21:10)
[2017-09-06] MEDS: CYCLOBENZAPRINE HCL 10 MG TABLET (FP) PO SCH ×2 (06:52→13:05)
[2017-09-06] MEDS: PRENATAL VITAMINS W/ FOLIC ACID TABLET (FP) PO SCH (09:47)
[2017-09-06] MEDS: cloNIDine HCL 0.1 MG TABLET PO SCH (09:47)
[2017-09-06] MEDS: NAPROXEN 500 MG TABLET (FP) PO SCH ×2 (09:47→21:11)
[2017-09-06] MEDS: NICOTINE 21 MG/24 HOURS TOPICAL PATCH TD SCH (09:48)
[2017-09-06] MEDS: PANTOPRAZOLE 40 MG TABLET (FP) PO SCH (09:48)
--- NOTE | 2017-09-06 11:40 | HP ---
Psychiatrist Admission - Data Date of interview: 09/06/17 Admission source: 6N Identifying data: This is the first [facility] admission for this 52 years old single Black female, mother of 11 children, unemployed on food stamp, living with a friend Medical History: Unremarkable. Smokes 15 cigarettes daily Psychiatric History: Denies history of previous psychiatric treatment. However reports suffering from insomnia and she was prescribed Seroquel 100 mg po HS for insomnia on a previous admisson to detox in this facility and that Ambien 10 mg po HS prn for insomnia for that most recent one Physical/Sexual Abuse/Trauma History: Denies history of verbal, physical or sexual abuse as well as DV relationship Additional Comment: Reports history of 3 previous arrests. No felony Vital Signs: Vital Signs - 24 hr 09/05/17 09/06/17 09/06/17 13:10 00:30 03:30 Temperature 98.7 F Pulse Rate 92 H Respiratory 16 18 18 Rate Blood Pressure 120/78 09/06/17 09/06/17 07:04 09:49 Temperature 97.7 F Pulse Rate 73 76 Respiratory 18 Rate Blood Pressure 116/79 116/82 Allergies/Adverse Reactions: Allergies Allergy/AdvReac Type Severity Reaction Status Date / Time No Known Allergies Allergy Verified 07/26/17 16:52 Date of last physical exam: 08/31/17 Concur with the findings of this exam: Yes - Substance Abuse/Tx History Hx Alcohol Use: No Hx Substance Use: Yes Substance Use Type: Cocaine (Started smoking crack cocane at age 32, consumes 3 bgs daily. Last smoked on 08/30/16), Heroin (Started using heroin at age 51, consumes 7 bgs daily. Last used on 08/30/17) Hx Substance Use Treatment: Yes (6 previous inpatient detox admissions @ [facility]) Mental Status Exam - Mental Status Exam Alert and Oriented to: Time, Place, Person Cognitive Function: Fair Patient Appearance: Well Groomed Mood: Hopeful, Euthymic Patient Behavior: Cooperative Speech Pattern: Clear Voice Loudness: Normal Thought Process: Intact Thought Disorder: Not Present Hallucinations: Denies Suicidal Ideation: Denies Homicidal Ideation: Denies Insight/Judgement: Fair Sleep: Poorly Appetite: Fair Muscle strength/Tone: Normal Gait/Station: Normal Psychiatric Findings - Problem List ([place] 1, 2,3) (1) Opioid dependence Current Visit: Yes Status: Acute (2) Cocaine dependence Current Visit: Yes Status: Acute (3) Nicotine dependence Current Visit: No Status: Chronic Qualifiers: Nicotine product type: cigarettes Substance use status: uncomplicated Qualified Code(s): F17.210 - Nicotine dependence, cigarettes, uncomplicated (4) Substance-induced sleep disorder Current Visit: No Status: Acute - Initial Treatment Plan Initial Treatment Plan: 1) Continue Belsomra 10 mg po HS prn for insomnia. 2) Monitor progress
[2017-09-06] MEDS: hydrOXYzine PAMOATE 50 MG CAPSULE (FP) PO PRN ×2 (13:05→18:12)
[2017-09-06] MEDS ORDERED: CYCLOBENZAPRINE HCL 10 MG TABLET (FP) PO PRN (13:51)
[2017-09-06] MEDS: cloNIDine HCL 0.1 MG TABLET PO PRN (18:12)
[2017-09-06] MEDS: THIAMINE HCL 100 MG TABLET (FP) PO SCH (21:11)
[2017-09-06] MEDS: SUVOREXANT 10 MG TABLET PO PRN (21:13)
[2017-09-07] MEDS: NICOTINE 21 MG/24 HOURS TOPICAL PATCH TD SCH (09:46)
[2017-09-07] MEDS: PRENATAL VITAMINS W/ FOLIC ACID TABLET (FP) PO SCH (09:46)
[2017-09-07] MEDS: NAPROXEN 500 MG TABLET (FP) PO SCH ×2 (09:46→21:14)
[2017-09-07] MEDS: PANTOPRAZOLE 40 MG TABLET (FP) PO SCH (09:46)
[2017-09-07] MEDS: hydrOXYzine PAMOATE 50 MG CAPSULE (FP) PO PRN ×2 (09:48→21:15)
[2017-09-07] MEDS: THIAMINE HCL 100 MG TABLET (FP) PO SCH (21:13)
[2017-09-07] MEDS: cloNIDine HCL 0.1 MG TABLET PO PRN (21:15)
[2017-09-07] MEDS: SUVOREXANT 10 MG TABLET PO PRN (21:16)
[2017-09-08] MEDS: MAG HYDROX/AL HYDROX/SIMETH 30 ML UNIT-DOSE CUP PO PRN (07:22)
[2017-09-08] MEDS: NICOTINE 21 MG/24 HOURS TOPICAL PATCH TD SCH (09:35)
[2017-09-08] MEDS: PRENATAL VITAMINS W/ FOLIC ACID TABLET (FP) PO SCH (09:36)
[2017-09-08] MEDS: NAPROXEN 500 MG TABLET (FP) PO SCH ×2 (09:36→21:04)
[2017-09-08] MEDS: PANTOPRAZOLE 40 MG TABLET (FP) PO SCH (09:36)
--- NOTE | 2017-09-08 11:45 | PN ---
AMADEO Progress Note Note: Psychiatry Attending's note : Renewal of medication : Belsomra 10 mg po hs prn. Ordered.Informed consent confirmed.Chart reviewed.
[2017-09-08] MEDS: hydrOXYzine PAMOATE 50 MG CAPSULE (FP) PO PRN ×3 (12:13→21:07)
[2017-09-08] MEDS: THIAMINE HCL 100 MG TABLET (FP) PO SCH (21:04)
[2017-09-08] MEDS: SUVOREXANT 10 MG TABLET PO PRN (21:07)
[2017-09-09] MEDS: PRENATAL VITAMINS W/ FOLIC ACID TABLET (FP) PO SCH (09:18)
[2017-09-09] MEDS: hydrOXYzine PAMOATE 50 MG CAPSULE (FP) PO PRN ×3 (09:18→21:05)
[2017-09-09] MEDS: PANTOPRAZOLE 40 MG TABLET (FP) PO SCH (09:19)
[2017-09-09] MEDS: NICOTINE 21 MG/24 HOURS TOPICAL PATCH TD SCH (09:19)
[2017-09-09] MEDS: NAPROXEN 500 MG TABLET (FP) PO SCH ×2 (09:19→21:04)
[2017-09-09] MEDS: THIAMINE HCL 100 MG TABLET (FP) PO SCH (21:05)
[2017-09-09] MEDS: SUVOREXANT 10 MG TABLET PO PRN (21:05)
[2017-09-09] MEDS: cloNIDine HCL 0.1 MG TABLET PO PRN (21:06)
[2017-09-10] MEDS: MAG HYDROX/AL HYDROX/SIMETH 30 ML UNIT-DOSE CUP PO PRN (06:04)
[2017-09-10] MEDS: PANTOPRAZOLE 40 MG TABLET (FP) PO SCH (09:40)
[2017-09-10] MEDS: PRENATAL VITAMINS W/ FOLIC ACID TABLET (FP) PO SCH (09:40)
[2017-09-10] MEDS: NICOTINE 21 MG/24 HOURS TOPICAL PATCH TD SCH (09:40)
[2017-09-10] MEDS: NAPROXEN 500 MG TABLET (FP) PO SCH ×2 (09:40→21:04)
[2017-09-10] MEDS: hydrOXYzine PAMOATE 50 MG CAPSULE (FP) PO PRN ×2 (12:27→21:02)
--- NOTE | 2017-09-10 12:44 | PN ---
[facility] Progress Note (SOAP) Subjective: patient c/o opioid withdrawawl sx perssting would like to sotat suboxone Objective: 09/10/17 12:43 Vital Signs - 24 hr 09/09/17 09/10/17 09/10/17 22:00 00:30 07:11 Temperature 98.0 F 97.7 F Pulse Rate 87 70 Respiratory 18 16 18 Rate Blood Pressure 112/76 91/62 labs reviewed with patient no ccontroindicatons to suboxone use,lfts wnl Assessment: 09/10/17 12:43 start suboxone 2mg now nd daily unil appot scheduled then dose can be adjusted upwards for effect.
[2017-09-10] MEDS ORDERED: COLLOIDAL OATMEAL 1 BAR EACH TP PRN (12:50)
[2017-09-10] MEDS: NICOTINE POLACRILEX 4 MG GUM BUC PRN (13:34)
[2017-09-10] MEDS: BUPRENORPHINE/NALOXONE 2 MG/0.5 MG FILM PACKET SL SCH (14:07)
[2017-09-10] MEDS: CYCLOBENZAPRINE HCL 10 MG TABLET (FP) PO SCH ×2 (14:07→21:05)
[2017-09-10] MEDS: ACETAMINOPHEN 325 MG TABLET (FP) PO PRN (18:25)
[2017-09-10] MEDS: THIAMINE HCL 100 MG TABLET (FP) PO SCH (21:02)
[2017-09-10] MEDS: SUVOREXANT 10 MG TABLET PO PRN (21:03)
[2017-09-10] MEDS: cloNIDine HCL 0.1 MG TABLET PO SCH (21:04)
[2017-09-11] MEDS: hydrOXYzine PAMOATE 50 MG CAPSULE (FP) PO PRN ×2 (06:35→21:11)
[2017-09-11] MEDS: CYCLOBENZAPRINE HCL 10 MG TABLET (FP) PO SCH ×3 (06:51→21:12)
[2017-09-11] MEDS: NAPROXEN 500 MG TABLET (FP) PO SCH ×2 (09:41→21:11)
[2017-09-11] MEDS: PANTOPRAZOLE 40 MG TABLET (FP) PO SCH (09:42)
[2017-09-11] MEDS: PRENATAL VITAMINS W/ FOLIC ACID TABLET (FP) PO SCH (09:42)
[2017-09-11] MEDS: NICOTINE 21 MG/24 HOURS TOPICAL PATCH TD SCH (09:42)
[2017-09-11] MEDS: BUPRENORPHINE/NALOXONE 2 MG/0.5 MG FILM PACKET SL SCH (09:43)
[2017-09-11] MEDS: cloNIDine HCL 0.1 MG TABLET PO SCH (09:45)
[2017-09-11] MEDS ORDERED: BUPRENORPHINE/NALOXONE 2 MG/0.5 MG FILM PACKET SL ONE (11:45)
[2017-09-11] MEDS: ACETAMINOPHEN 325 MG TABLET (FP) PO PRN (14:51)
[2017-09-11] MEDS: THIAMINE HCL 100 MG TABLET (FP) PO SCH (21:11)
[2017-09-11] MEDS: SUVOREXANT 10 MG TABLET PO PRN (21:12)
[2017-09-12] MEDS: CYCLOBENZAPRINE HCL 10 MG TABLET (FP) PO SCH ×3 (06:11→21:05)
[2017-09-12] MEDS: hydrOXYzine PAMOATE 50 MG CAPSULE (FP) PO PRN ×3 (06:11→21:05)
[2017-09-12] MEDS: ACETAMINOPHEN 325 MG TABLET (FP) PO PRN ×2 (06:12→15:32)
[2017-09-12] MEDS: NAPROXEN 500 MG TABLET (FP) PO SCH ×2 (09:28→21:05)
[2017-09-12] MEDS: PRENATAL VITAMINS W/ FOLIC ACID TABLET (FP) PO SCH (09:28)
[2017-09-12] MEDS: PANTOPRAZOLE 40 MG TABLET (FP) PO SCH (09:28)
[2017-09-12] MEDS: P-EPHED 60MG/TRIPROLIDI 2.5MG TABLET PO PRN ×2 (09:29→21:06)
[2017-09-12] MEDS: NICOTINE 21 MG/24 HOURS TOPICAL PATCH TD SCH (09:29)
[2017-09-12] MEDS: BUPRENORPHINE/NALOXONE 2 MG/0.5 MG FILM PACKET SL SCH (09:30)
[2017-09-12] MEDS: THIAMINE HCL 100 MG TABLET (FP) PO SCH (21:05)
[2017-09-12] MEDS: SUVOREXANT 10 MG TABLET PO SCH (23:25)
[2017-09-13] MEDS: hydrOXYzine PAMOATE 50 MG CAPSULE (FP) PO PRN ×3 (05:57→21:14)
[2017-09-13] MEDS: P-EPHED 60MG/TRIPROLIDI 2.5MG TABLET PO PRN (05:57)
[2017-09-13] MEDS: CYCLOBENZAPRINE HCL 10 MG TABLET (FP) PO SCH ×3 (05:57→21:14)
--- NOTE | 2017-09-13 10:03 | PN ---
[facility] Progress Note Note: Renewal of medication. Chart reviewed Belsomra 10 mg po hs prn ordered.
[2017-09-13] MEDS: PANTOPRAZOLE 40 MG TABLET (FP) PO SCH (10:08)
[2017-09-13] MEDS: NICOTINE 21 MG/24 HOURS TOPICAL PATCH TD SCH (10:08)
[2017-09-13] MEDS: PRENATAL VITAMINS W/ FOLIC ACID TABLET (FP) PO SCH (10:08)
[2017-09-13] MEDS: NAPROXEN 500 MG TABLET (FP) PO SCH ×2 (10:08→21:14)
[2017-09-13] MEDS: BUPRENORPHINE/NALOXONE 2 MG/0.5 MG FILM PACKET SL SCH (10:09)
--- NOTE | 2017-09-13 11:19 | PN ---
Progress Note (short form) - Note Progress Note: c/o feeling unwell, particularily lower back pain which occurs when she is coming off herion. unable to sleep last night. had to 2 episodes of NBNB vomiting. requests increase in suboxone for better comfort. denies fever, chest pain, headache, sob, abdominal pain Plan: pending outpatient appointment, increase suboxone to 8mg daily from 4mg, reassess tomorrow started on belsomra HS by psych discussed with Dr. Murrell Problem List - Problems (1) Cocaine dependence Code(s): F14.20 - COCAINE DEPENDENCE, UNCOMPLICATED (2) Opioid dependence Code(s): F11.20 - OPIOID DEPENDENCE, UNCOMPLICATED (3) Substance-induced sleep disorder Code(s): F19.982 - OTH PSYCHOACTIVE SUBSTANCE USE, UNSP W SLEEP DISORDER (4) Cocaine dependence, uncomplicated Code(s): F14.20 - COCAINE DEPENDENCE, UNCOMPLICATED (5) Nicotine dependence Code(s): F17.200 - NICOTINE DEPENDENCE, UNSPECIFIED, UNCOMPLICATED Qualifiers: Nicotine product type: cigarettes Substance use status: uncomplicated Qualified Code(s): F17.210 - Nicotine dependence, cigarettes, uncomplicated (6) Depression (emotion) Code(s): F32.9 - MAJOR DEPRESSIVE DISORDER, SINGLE EPISODE, UNSPECIFIED Qualifiers: Depression Type: dysthymia Qualified Code(s): F34.1 - Dysthymic disorder
[2017-09-13] MEDS: NICOTINE POLACRILEX 4 MG GUM BUC PRN (14:41)
[2017-09-13] MEDS ORDERED: BUPRENORPHINE/NALOXONE 2 MG/0.5 MG FILM PACKET SL ONE (14:55)
[2017-09-13] MEDS: THIAMINE HCL 100 MG TABLET (FP) PO SCH (21:14)
[2017-09-13] MEDS: SUVOREXANT 10 MG TABLET PO SCH (21:15)
[2017-09-14] MEDS: P-EPHED 60MG/TRIPROLIDI 2.5MG TABLET PO PRN (03:01)
[2017-09-14] MEDS: CYCLOBENZAPRINE HCL 10 MG TABLET (FP) PO SCH ×3 (06:54→21:20)
[2017-09-14] MEDS: hydrOXYzine PAMOATE 50 MG CAPSULE (FP) PO PRN ×2 (06:55→21:20)
[2017-09-14] MEDS: NICOTINE 21 MG/24 HOURS TOPICAL PATCH TD SCH (09:57)
[2017-09-14] MEDS: PANTOPRAZOLE 40 MG TABLET (FP) PO SCH (09:57)
[2017-09-14] MEDS: BUPRENORPHINE/NALOXONE 8 MG/2 MG FILM PACKET SL SCH (09:57)
[2017-09-14] MEDS: PRENATAL VITAMINS W/ FOLIC ACID TABLET (FP) PO SCH (09:57)
[2017-09-14] MEDS: NAPROXEN 500 MG TABLET (FP) PO SCH ×2 (09:57→21:20)
--- NOTE | 2017-09-14 11:21 | PN ---
Progress Note (short form) - Note Progress Note: requests outpatient prescription for suboxone 8mg daily. she will be leaving rehab Sunday09/18/2017 in the morning says she has an appoint on 09/19 at 10am at [facility] [address] for suboxone continuation. also indicated on cm note from 09/10 called and spoke with Brad John. they don't have set appointments, patients can walk-in for intake. they don't have records of her having been there previously or her having called to set up an appointment with any counselor. [employer] [employer] reviewed with Dr. Murrell, no documentation of controlled substances /suboxone recorded for this patient. Plan: monitor suboxone at current dose, added clonidine for symptom relief while admitted (clonidine not to be continued as outpatient) discussed with Dr. Murrell Problem List - Problems (1) Cocaine dependence Code(s): F14.20 - COCAINE DEPENDENCE, UNCOMPLICATED (2) Opioid dependence Code(s): F11.20 - OPIOID DEPENDENCE, UNCOMPLICATED (3) Substance-induced sleep disorder Code(s): F19.982 - OTH PSYCHOACTIVE SUBSTANCE USE, UNSP W SLEEP DISORDER (4) Cocaine dependence, uncomplicated Code(s): F14.20 - COCAINE DEPENDENCE, UNCOMPLICATED (5) Nicotine dependence Code(s): F17.200 - NICOTINE DEPENDENCE, UNSPECIFIED, UNCOMPLICATED Qualifiers: Nicotine product type: cigarettes Substance use status: uncomplicated Qualified Code(s): F17.210 - Nicotine dependence, cigarettes, uncomplicated (6) Depression (emotion) Code(s): F32.9 - MAJOR DEPRESSIVE DISORDER, SINGLE EPISODE, UNSPECIFIED Qualifiers: Depression Type: dysthymia Qualified Code(s): F34.1 - Dysthymic disorder
[2017-09-14] MEDS: ACETAMINOPHEN 325 MG TABLET (FP) PO PRN (15:34)
[2017-09-14] MEDS: NICOTINE POLACRILEX 4 MG GUM BUC PRN (20:19)
[2017-09-14] MEDS: SUVOREXANT 10 MG TABLET PO SCH (21:20)
[2017-09-14] MEDS: THIAMINE HCL 100 MG TABLET (FP) PO SCH (21:20)
[2017-09-14] MEDS: cloNIDine HCL 0.1 MG TABLET PO SCH (21:56)
[2017-09-15] MEDS: ACETAMINOPHEN 325 MG TABLET (FP) PO PRN ×2 (06:24→13:35)
[2017-09-15] MEDS: CYCLOBENZAPRINE HCL 10 MG TABLET (FP) PO SCH ×3 (06:59→21:12)
[2017-09-15] MEDS: PRENATAL VITAMINS W/ FOLIC ACID TABLET (FP) PO SCH (09:29)
[2017-09-15] MEDS: cloNIDine HCL 0.1 MG TABLET PO SCH ×2 (09:30→21:12)
[2017-09-15] MEDS: NAPROXEN 500 MG TABLET (FP) PO SCH ×2 (09:30→21:12)
[2017-09-15] MEDS: BUPRENORPHINE/NALOXONE 8 MG/2 MG FILM PACKET SL SCH (09:30)
[2017-09-15] MEDS: NICOTINE 21 MG/24 HOURS TOPICAL PATCH TD SCH (09:30)
[2017-09-15] MEDS: PANTOPRAZOLE 40 MG TABLET (FP) PO SCH (09:30)
[2017-09-15] MEDS: P-EPHED 60MG/TRIPROLIDI 2.5MG TABLET PO PRN (09:31)
[2017-09-15] MEDS: hydrOXYzine PAMOATE 50 MG CAPSULE (FP) PO PRN ×2 (13:36→21:13)
[2017-09-15] MEDS: SUVOREXANT 10 MG TABLET PO SCH (21:12)
[2017-09-15] MEDS: THIAMINE HCL 100 MG TABLET (FP) PO SCH (21:12)
[2017-09-16] MEDS: CYCLOBENZAPRINE HCL 10 MG TABLET (FP) PO SCH ×3 (06:39→21:19)
[2017-09-16] MEDS: P-EPHED 60MG/TRIPROLIDI 2.5MG TABLET PO PRN ×2 (06:40→15:50)
[2017-09-16] MEDS: hydrOXYzine PAMOATE 50 MG CAPSULE (FP) PO PRN ×3 (06:40→21:18)
[2017-09-16] MEDS: NICOTINE 21 MG/24 HOURS TOPICAL PATCH TD SCH (09:34)
[2017-09-16] MEDS: BUPRENORPHINE/NALOXONE 8 MG/2 MG FILM PACKET SL SCH (09:34)
[2017-09-16] MEDS: NAPROXEN 500 MG TABLET (FP) PO SCH ×2 (09:35→21:18)
[2017-09-16] MEDS: PANTOPRAZOLE 40 MG TABLET (FP) PO SCH (09:35)
[2017-09-16] MEDS: PRENATAL VITAMINS W/ FOLIC ACID TABLET (FP) PO SCH (09:35)
[2017-09-16] MEDS: cloNIDine HCL 0.1 MG TABLET PO SCH ×2 (09:35→21:19)
[2017-09-16] MEDS: ACETAMINOPHEN 325 MG TABLET (FP) PO PRN (12:52)
[2017-09-16] MEDS: NICOTINE POLACRILEX 4 MG GUM BUC PRN (12:53)
[2017-09-16] MEDS: MAG HYDROX/AL HYDROX/SIMETH 30 ML UNIT-DOSE CUP PO PRN (18:19)
[2017-09-16] MEDS: THIAMINE HCL 100 MG TABLET (FP) PO SCH (21:19)
[2017-09-16] MEDS: SUVOREXANT 10 MG TABLET PO SCH (21:20)
[2017-09-17] MEDS: ACETAMINOPHEN 325 MG TABLET (FP) PO PRN (01:47)
[2017-09-17] MEDS: hydrOXYzine PAMOATE 50 MG CAPSULE (FP) PO PRN ×2 (01:47→13:57)
[2017-09-17] MEDS: guaiFENesin/D-METHORPHAN HB 10 ML UNIT-DOSE CUPS PO PRN ×3 (05:00→19:08)
[2017-09-17] MEDS: CYCLOBENZAPRINE HCL 10 MG TABLET (FP) PO SCH ×3 (06:45→21:05)
[2017-09-17] MEDS: PANTOPRAZOLE 40 MG TABLET (FP) PO SCH (09:27)
[2017-09-17] MEDS: BUPRENORPHINE/NALOXONE 8 MG/2 MG FILM PACKET SL SCH (09:27)
[2017-09-17] MEDS: NAPROXEN 500 MG TABLET (FP) PO SCH ×2 (09:27→21:05)
[2017-09-17] MEDS: PRENATAL VITAMINS W/ FOLIC ACID TABLET (FP) PO SCH (09:27)
[2017-09-17] MEDS: NICOTINE 21 MG/24 HOURS TOPICAL PATCH TD SCH (09:27)
[2017-09-17] MEDS: cloNIDine HCL 0.1 MG TABLET PO SCH ×2 (09:31→21:06)
[2017-09-17] MEDS: THIAMINE HCL 100 MG TABLET (FP) PO SCH (21:05)
[2017-09-17] MEDS: SUVOREXANT 10 MG TABLET PO SCH (21:06)
[2017-09-17] MEDS: P-EPHED 60MG/TRIPROLIDI 2.5MG TABLET PO PRN (23:20)
[2017-09-18] MEDS: guaiFENesin/D-METHORPHAN HB 10 ML UNIT-DOSE CUPS PO PRN (05:11)
[2017-09-18] MEDS: CYCLOBENZAPRINE HCL 10 MG TABLET (FP) PO SCH (06:17)
[2017-09-18 06:38] VITALS: TEMP 98.2
[2017-09-18 09:04] VITALS: BP 119/82; PULSE 108
[2017-09-18] MEDS: PRENATAL VITAMINS W/ FOLIC ACID TABLET (FP) PO SCH (09:14)
[2017-09-18] MEDS: cloNIDine HCL 0.1 MG TABLET PO SCH (09:14)
[2017-09-18] MEDS: BUPRENORPHINE/NALOXONE 8 MG/2 MG FILM PACKET SL SCH (09:15)
[2017-09-18] MEDS: NAPROXEN 500 MG TABLET (FP) PO SCH (09:15)
[2017-09-18] MEDS: PANTOPRAZOLE 40 MG TABLET (FP) PO SCH (09:15)
[2017-09-18] MEDS: NICOTINE 21 MG/24 HOURS TOPICAL PATCH TD SCH (09:15)
[2017-09-18] MEDS: hydrOXYzine PAMOATE 50 MG CAPSULE (FP) PO PRN (09:16)
--- NOTE | 2017-09-18 09:38 | PN ---
Psychiatric Progress Note Vital Signs: Vital Signs Period Temp Pulse Resp BP Sys/Mejia Pulse Ox Last 24 Hr 97.4 F-98.2 F 81-108 16-18 99-119/66-82 Date of Session: 09/18/17 Chief Complaint:: Discharge Note HPI: Patoent addressing Opoid and Cocaine Dependence comorbid with Nicotine Dependence and Substance-induced Sleep Disorder Current Medications: Active Medications Generic Name Dose Route Start Last Admin Trade Name Freq PRN Reason Stop Dose Admin Acetaminophen 650 mg 09/05/17 14:06 09/17/17 01:47 Tylenol - PO 650 mg Q4H PRN Administration FEVER OR PAIN Al Hydroxide/Mg Hydroxide 30 ml 09/05/17 14:06 09/16/17 18:19 Mylanta Oral Suspension - PO 30 ml Q6H PRN Administration DYSPEPSIA Buprenorphine/Naloxone 1 each 09/14/17 10:00 09/18/17 09:15 Suboxone 8mg/2mg Sl Film - SL 09/20/17 09:59 1 each DAILY KATE Administration Clonidine 0.1 mg 09/14/17 22:00 09/18/17 09:14 Catapres - PO Not Given BID KATE Colloidal Oatmeal 1 applic 09/10/17 12:50 Aveeno Soap - TP DAILY PRN HYGEINE Cyclobenzaprine HCl 10 mg 09/10/17 14:00 09/18/17 06:17 Flexeril - PO 10 mg TID KATE Administration Eucalyptus/Menthol/Phenol/Sorbitol 1 each 09/05/17 14:06 Cepastat Lozenge - MM Q4H PRN SORE THROAT Guaifenesin 10 ml 09/05/17 14:06 09/18/17 05:11 Robitussin Dm - PO 10 ml Q6H PRN Administration COUGH Hydroxyzine Pamoate 50 mg 09/05/17 14:06 09/18/17 09:16 Vistaril - PO 50 mg Q4H PRN Administration AGITATION Loperamide HCl 4 mg 09/05/17 14:06 Imodium - PO Q6H PRN DIARRHEA Magnesium Citrate 300 ml 09/05/17 14:06 Citroma - PO Q48H PRN CONSTIPATION Magnesium Hydroxide 30 ml 09/05/17 14:06 Milk Of Magnesia - PO DAILY PRN CONSTIPATION Naproxen 500 mg 09/05/17 22:00 09/18/17 09:15 Naprosyn - PO 500 mg BID KATE Administration Nicotine 21 mg 09/06/17 10:00 09/18/17 09:15 Nicoderm Patch - TD Not Given DAILY KATE Nicotine Polacrilex 4 mg 09/05/17 14:06 09/16/17 12:53 Nicorette Gum - BUC 4 mg Q2H PRN Administration NICOTINE REPLACEMENT RX Ondansetron HCl 8 mg 09/05/17 15:55 Zofran Odt - SL Q6H PRN NAUSEA AND/OR VOMITING Pantoprazole Sodium 40 mg 09/05/17 16:30 09/18/17 09:15 Protonix - PO 40 mg DAILY KATE Administration Multivit/Folic Acid/Iron 1 tab 09/06/17 10:00 09/18/17 09:14 Vitamins (Sjr) - PO 1 tab DAILY KATE Administration Pseudoephedrine/Triprolidine 1 combo 09/05/17 14:06 09/17/17 23:20 Actifed - PO 1 combo TID PRN Administration NASAL CONGESTION Thiamine HCl 100 mg 09/05/17 22:00 09/17/17 21:05 Vitamin B1 - PO 100 mg HS KATE Administration Current Side Effect: No Lab tests ordered: Yes Lab tests reviewed: Yes Provider note:: Patient has completed this program today. She has met her treatment goals and will continue to address her issues in outpatient treatment at [facility]. Told senior medical writer that from her participation in this program, she has learned that she can maintain abstinence if she put her mind to it. She is stable for discharge today Total face to face time:: 35 Mental Status Exam - Mental Status Exam Alert and Oriented to: Time, Place, Person Cognitive Function: Fair Patient Appearance: Well Groomed Mood: Hopeful, Euthymic Affect: Appropriate Patient Behavior: Cooperative Speech Pattern: Clear Voice Loudness: Normal Thought Process: Intact Thought Disorder: Not Present Hallucinations: Denies Suicidal Ideation: Denies Homicidal Ideation: Denies Insight/Judgement: Fair Sleep: Fair Appetite: Good Muscle strength/Tone: Normal Gait/Station: Normal Psychiatric Treatment Plan - Problem List (1) Opioid dependence Current Visit: Yes (2) Cocaine dependence Current Visit: Yes (3) Nicotine dependence Current Visit: No Qualifiers: Nicotine product type: cigarettes Substance use status: uncomplicated Qualified Code(s): F17.210 - Nicotine dependence, cigarettes, uncomplicated (4) Substance-induced sleep disorder Current Visit: No Initial treatment plan: Patient is discharged today and is referred to [facility] for outpatient treatment
== END 2017-09-18 10:30 | disposition home or self-care (01) | DRG 772 ==
LOC: YASAS 13:04 → Y3E 13:05
PROVIDERS: ADMIT Psychiatry & Neurology Psychiatry; ATTEND Psychiatry & Neurology Psychiatry
PROC: HZ42ZZZ Group Counseling for Substance Abuse Treatment, Cognitive-Behavioral (ICD-10-PCS; principal; 2017-09-05)
DX: F11.20 Opioid dependence, uncomplicated (principal); F14.20 Cocaine dependence, uncomplicated; F17.210 Nicotine dependence, cigarettes, uncomplicated; F19.282 Other psychoactive substance dependence with psychoactive substance-induced sleep disorder

== ENCOUNTER 2017-11-19 11:24 | Inpatient (IN) | payer OTHER ==
[2017-11-19 14:12] VITALS: BMI 25.7
--- NOTE | 2017-11-19 14:43 | HP ---
COWS - Scale Resting Pulse: 0= MS 80 or Below Sweatin=Flushed/Facial Moisture Restless Observation: 3= Extraneous Movement Pupil Size: 2= Moderately Dilated Bone or Joint Aches: 2= Severe Diffuse Aches Runny Nose/ Eye Tearin= Runny Nose/Eyes GI Upset > 30mins: 3= Vomiting/Diarrhea Tremor Observation: 2= Slight Tremor Visible Yawning Observation: 2= >3x During Session Anxiety or Irritability: 2=Irritable/Anxious Goose Flesh Skin: 0=Smooth Skin COWS Score: 20 Admission ROS BHS - HPI Chief Complaint: i need help to stop using heroin and cocaine Allergies/Adverse Reactions: Allergies Allergy/AdvReac Type Severity Reaction Status Date / Time No Known Allergies Allergy Verified 11/19/17 14:35 History of Present Illness: this 52 years old female with heroin,cocaine dependence,seeking detox, withdrawal symptom,last detox [facility] 08/31/17 t0 09/05/17 rehab form 09/05/17 to 09/18/17 nicotine dependence longest period of sobriety 6 months weight loss Exam Limitations: No Limitations - Ebola screening Have you been sick,other than usual withdrawal symptoms: No - Review of Systems Constitutional: Chills, Loss of Appetite, Malaise, Night Sweats, Changes in sleep, Weakness, Unintentional Wgt. Loss EENT: reports: Tearing, Nose Congestion Respiratory: reports: No Symptoms reported Cardiac: reports: No Symptoms Reported GI: reports: Nausea, Vomiting, Abdominal cramping : reports: No Symptoms Reported Musculoskeletal: reports: Back Pain, Joint Pain, Muscle Pain, Joint Stiffness Integumentary: reports: Dryness Neuro: reports: Headache, Tremors Endocrine: reports: No Symptoms Reported Hematology: reports: No Symptoms Reported Psychiatric: reports: No Sypmtoms Reported, Judgement Intact, Mood/Affect Appropiate, Orientated x3 Patient History - Patient Medical History Hx Anemia: No Hx Asthma: No Hx Chronic Obstructive Pulmonary Disease (COPD): No Hx Cancer: No Hx Cardiac Disorders: No Hx Congestive Heart Failure: No Hx Hypertension: No Hx Hypercholesterolemia: No Hx Pacemaker: No HX Cerebrovascular Accident: No Hx Seizures: No Hx Dementia: No Hx Diabetes: No Hx Gastrointestinal Disorders: No Hx Liver Disease: No Hx Genitourinary Disorders: No Hx Sexually Transmitted Disorders: No Hx Renal Disease (ESRD): No Hx Thyroid Disease: No Hx Human Immunodeficiency Virus (HIV): Yes (last17 negative) Hx Hepatitis C: No Hx Depression: No Hx Suicide Attempt: No Hx Bipolar Disorder: No Hx Schizophrenia: No Other Medical History: no suicidal,no homicidal, - Patient Surgical History Past Surgical History: No Hx Neurologic Surgery: No Hx Cataract Extraction: No Hx Cardiac Surgery: No Hx Lung Surgery: No Hx Breast Surgery: No Hx Breast Biopsy: No Hx Abdominal Surgery: No Hx Appendectomy: No Hx Cholecystectomy: No Hx Genitourinary Surgery: No Hx Section: No Hx Orthopedic Surgery: No Hx Hysterectomy: No Anesthesia Reaction: No - PPD History Previous Implant?: Yes Documented Results: Negative w/proof Date: 05/31/17 Results: 0mm PPD to be Administered?: No - Reproductive History Patient is a Female of Child Bearing Age (11 -55 yrs old): Yes Last Menstrual Period: 02/24/17 Patient : No - Smoking Cessation Smoking history: Current every day smoker Have you smoked in the past 12 months: Yes Aproximately how many cigarettes per day: 10 Cigars Per Day: 0 Hx Chewing Tobacco Use: No Initiated information on smoking cessation: Yes 'Breaking Loose' booklet given: 11/19/17 - Substance & Tx. History Hx Alcohol Use: No Hx Substance Use: Yes Substance Use Type: Cocaine, Heroin Hx Substance Use Treatment: Yes ([facility] 08/31/17 to 09/05/17,rehab 09/05/17 to ) - Substances Abused Heroin Route: Inhalation Frequency: Daily Amount used: 6-7 BAGS Age of first use: 51 Date of Last Use: 11/19/17 Crack Route: Smoking Frequency: Daily Amount used: $50 Age of first use: 27 Date of Last Use: 11/16/17 Family Disease History - Family Disease History Family Disease History: Other: Father (NO CONTACT), Mother ( LIVER ) Admission Physical Exam S - Vital Signs Vital Signs: Vital Signs - 24 hr 11/19/17 14:10 Temperature 97.6 F Pulse Rate 62 Respiratory 20 Rate Blood Pressure 132/75 - Physical General Appearance: Yes: Moderate Distress, Tremorous, Irritable, Sweating, Anxious HEENTM: Yes: Normal ENT Inspection, KAREN, Pharynx Normal Respiratory: Yes: Lungs Clear, Normal Breath Sounds, No Respiratory Distress Neck: Yes: Within Normal Limits, Supple, Trachea in good position Breast: Yes: Breast Exam Deferred Cardiology: Yes: Within Normal Limits, Regular Rhythm, Regular Rate, S1, S2 Abdominal: Yes: Within Normal Limits, Normal Bowel Sounds, Non Tender, Flat, Soft Genitourinary: Yes: Within Normal Limits Back: Yes: Muscle Spasm Musculoskeletal: Yes: Back pain, Joint Stiffness, Muscle Pain Extremities: Yes: Within Normal Limits, Normal Range of Motion, Tremors Neurological: Yes: color maker dyer II-XII NML intact, Fully Oriented, Alert, Motor Strength 5/5 Integumentary: Yes: Dry Lymphatic: Yes: Within Normal Limits - Diagnostic (1) Opioid dependence with withdrawal Current Visit: No Status: Acute (2) Cocaine dependence Current Visit: No Status: Acute (3) Nicotine dependence Current Visit: No Status: Chronic Qualifiers: Nicotine product type: cigarettes Substance use status: uncomplicated Qualified Code(s): F17.210 - Nicotine dependence, cigarettes, uncomplicated (4) Weight loss Current Visit: No Status: Chronic Cleared for Admission [facility] - Detox or Rehab [facility] Level of Care: Medically Managed Detox Regimen/Protocol: Methadone [facility] Breath Alcohol Content Breath Alcohol Content: 0 Urine Pregancy Test - Result Urine Test Results: Negative- NO Line Present Urine Drug Screen - Results Drug Screen Negative: No Urine Drug Screen Results: REILLY-Cocaine, OPI-Opiates
[2017-11-19] MEDS ORDERED: LOPERAMIDE HCL 2 MG CAPSULE PO PRN (14:52)
[2017-11-19] MEDS ORDERED: MENTHOL/PHENOL 1 EACH UD MM PRN (14:52)
[2017-11-19] MEDS ORDERED: P-EPHED 60MG/TRIPROLIDI 2.5MG TABLET PO PRN (14:52)
[2017-11-19] MEDS ORDERED: guaiFENesin/D-METHORPHAN HB 10 ML UNIT-DOSE CUPS PO PRN (14:52)
[2017-11-19] MEDS ORDERED: MAGNESIUM CITRATE 300 ML BOTTLE PO PRN (14:52)
[2017-11-19] MEDS ORDERED: MAG HYDROX/AL HYDROX/SIMETH 30 ML UNIT-DOSE CUP PO PRN (14:52)
[2017-11-19] MEDS ORDERED: MAGNESIUM HYDROX 2400MG/30ML ORAL SUSPENSION 30 ML CUP PO PRN (14:52)
[2017-11-19] MEDS ORDERED: METHADONE HCL 10 MG TABLET (FOR DETOX USE ONLY) PO ONE ×2 (16:30→23:00)
[2017-11-19] MEDS: diazePAM 5 MG TABLET PO PRN ×2 (17:19→22:10)
[2017-11-19] MEDS: NICOTINE 21 MG/24 HOURS TOPICAL PATCH TD SCH (17:23)
[2017-11-19 18:40] LABS: URINE APPEARANCE CLEAR; URINE BILIRUBIN NEGATIVE (NEGATIVE); URINE BLOOD 1+ (NEGATIVE); URINE COLOR LTYELLOW; URINE GLUCOSE (UA) NEGATIVE (NEGATIVE); URINE KETONE NEGATIVE (NEGATIVE); URINE LEUK ESTERASE NEGATIVE (NEGATIVE); URINE NITRITE NEGATIVE (NEGATIVE); URINE PROTEIN NEGATIVE (NEGATIVE)
[2017-11-19 21:39] LABS: EPI CELLS 0-3 /HPF (FEW); URINE MUCUS 1+
[2017-11-19] MEDS: THIAMINE HCL 100 MG TABLET (FP) PO SCH (22:09)
[2017-11-20] MEDS: diazePAM 5 MG TABLET PO PRN ×4 (02:25→19:32)
--- NOTE | 2017-11-20 09:33 | PN ---
[facility] COWS - Scale Resting Pulse: 0= [place] 80 or Below Sweatin= Chills/Flushing Restless Observation: 3= Extraneous Movement Pupil Size: 1= Pupils >than Normal Bone or Joint Aches: 2= Severe Diffuse Aches Runny Nose/ Eye Tearin= Runny Nose/Eyes GI Upset > 30mins: 3= Vomiting/Diarrhea Tremor Observation of Outstretched Hands: 2= Slight Tremor Visible Yawning Observation: 1= 1-2x During Session Anxiety or Irritability: 2=Irritable/Anxious Goose Flesh Skin: 0=Smooth Skin COWS Score: 17 S Progress Note (SOAP) Subjective: ALERT,IRRITABLE,ANXIOUS,INTERRUPTED SLEEP,TREMOR,PAIN IN THE BODY AND BACK Objective: 11/20/17 09:30 Vital Signs Temperature 97.5 F L 11/20/17 06:12 Pulse Rate 77 11/20/17 06:12 Respiratory Rate 18 11/20/17 06:12 Blood Pressure 107/74 11/20/17 06:12 O2 Sat by Pulse Oximetry (%) EKG SINUS BRADYCARDIA RATE 52/MIN LVH NO CHEST PAIN,NO SOB,NO DIZZINESS Laboratory Last Values Urine Color Ltyellow 11/19/17 18:00 Urine Appearance Clear 11/19/17 18:00 Urine pH 7.0 (5.0-8.0) D 11/19/17 18:00 Ur Specific [place] 1.026 (1.001-1.035) 11/19/17 18:00 Urine Protein Negative (NEGATIVE) 11/19/17 18:00 Urine Glucose (UA) Negative (NEGATIVE) 11/19/17 18:00 Urine Ketones Negative (NEGATIVE) 11/19/17 18:00 Urine Blood 1+ (NEGATIVE) H 11/19/17 18:00 Urine Nitrite Negative (NEGATIVE) 11/19/17 18:00 Urine Bilirubin Negative (NEGATIVE) 11/19/17 18:00 Urine Urobilinogen 2.0 mg/dL (0.2-1.0) H 11/19/17 18:00 Ur Leukocyte Esterase Negative (NEGATIVE) 11/19/17 18:00 Urine WBC (Auto) 0-2 /hpf (3-5) 11/19/17 18:00 Urine RBC (Auto) 0-2 /hpf (0-3) 02/26/18 18:00 Ur Epithelial Cells 0-3 /HPF (FEW) 11/19/17 18:00 Urine Mucus 1+ 11/19/17 18:00 HIV 1&2 Antibody Screen Negative 11/19/17 15:00 HIV P24 Antigen Negative 11/19/17 15:00 LABS PENDING Assessment: 11/20/17 09:32 WITHDRAWAL SYMPTOM Plan: CONTINUE DETOX,PSYCHIATRIC EVALUATION FOR INSOMNIA
[2017-11-20] MEDS ORDERED: CYCLOBENZAPRINE HCL 10 MG TABLET (FP) PO PRN (09:36)
[2017-11-20 09:47] LABS: HEMATOCRIT 41.8 % (32.4-45.2); HEMOGLOBIN 13.5 GM/dL (10.7-15.3); MCH 29.2 pg (25.7-33.7); MCHC 32.2 g/dl (32.0-36.0); MEAN CELL VOLUME 90.8 fl (80-96); MEAN PLT VOLUME 11.1 fl (7.5-11.1); PLATELET COUNT 206 K/MM3 (134-434); RBC 4.61 M/mm3 (3.60-5.2); RDW 14.9 % (11.6-15.6); WHITE BLOOD COUNT 5.7 K/mm3 (4.0-10.0)
[2017-11-20] MEDS ORDERED: METHADONE HCL 10 MG TABLET (FOR DETOX USE ONLY) PO ONE (10:00)
[2017-11-20] MEDS: NICOTINE 21 MG/24 HOURS TOPICAL PATCH TD SCH (10:05)
[2017-11-20] MEDS: PRENATAL VITAMINS W/ FOLIC ACID TABLET (FP) PO SCH (10:06)
[2017-11-20] MEDS: cloNIDine HCL 0.1 MG TABLET PO SCH ×2 (10:08→22:08)
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
--- NOTE | 2017-11-20 13:35 | EKG ---
Test Reason : Blood Pressure : / mmHG Vent. Rate : 052 BPM Atrial Rate : 052 BPM P-R Int : 124 ms QRS Dur : 082 ms QT Int : 430 ms P-R-T Axes : 066 012 023 degrees QTc Int : 399 ms SINUS BRADYCARDIA POSSIBLE LEFT ATRIAL ENLARGEMENT LEFT VENTRICULAR HYPERTROPHY ABNORMAL ECG WHEN COMPARED WITH ECG OF 31-AUG-2017 20:11, NO SIGNIFICANT CHANGE WAS FOUND Confirmed by MD Vladimir, Cali ([id number]) on 11/20/2017 1:35:00 PM Referred By: Confirmed By:Cali Gilbert MD
[2017-11-20 13:36] LABS: ALBUMIN 3.7 g/dl (3.4-5.0); ANION GAP 8 (8-16); BILIRUBIN,TOTAL 0.2 mg/dL (0.2-1.0); BLOOD UREA NITROGEN 13 mg/dL (7-18); CALCIUM 8.6 mg/dL (8.5-10.1); CHLORIDE 109 mmol/L (98-107); CO2 24 mmol/L (21-32); CREATININE 0.8 mg/dL (0.55-1.02); GLUCOSE,RANDOM 86 mg/dL (74-106); POTASSIUM 4.3 mmol/L (3.5-5.1); SGOT/AST 21 U/L (15-37); SGPT/ALT 20 U/L (12-78); SODIUM 141 mmol/L (136-145); TOT PROT 6.8 g/dl (6.4-8.2)
[2017-11-20 13:37] LABS: ALK PHOS 137 U/L (45-117)
[2017-11-20] MEDS: THIAMINE HCL 100 MG TABLET (FP) PO SCH (22:08)
[2017-11-20] MEDS: QUEtiapine FUMARATE 50 MG TABLET PO SCH (22:08)
--- NOTE | 2017-11-21 09:49 | PN ---
BHS COWS - Scale Resting Pulse: 0= [place] 80 or Below Sweatin= Chills/Flushing Restless Observation: 3= Extraneous Movement Pupil Size: 1= Pupils >than Normal Bone or Joint Aches: 2= Severe Diffuse Aches Runny Nose/ Eye Tearin= Runny Nose/Eyes GI Upset > 30mins: 2= Nausea/Diarrhea Tremor Observation of Outstretched Hands: 2= Slight Tremor Visible Yawning Observation: 1= 1-2x During Session Anxiety or Irritability: 2=Irritable/Anxious Goose Flesh Skin: 0=Smooth Skin COWS Score: 16 BHS Progress Note (SOAP) Subjective: ALERT,IRRITABLE,ANXIOUS,INTERRUPTED SLEEP,TREMOR Objective: 11/21/17 09:47 Vital Signs Temperature 97.7 F 11/21/17 09:46 Pulse Rate 73 11/21/17 09:46 Respiratory Rate 18 11/21/17 09:46 Blood Pressure 94/60 11/21/17 09:46 O2 Sat by Pulse Oximetry (%) Laboratory Last Values WBC 5.7 K/mm3 (4.0-10.0) 11/20/17 05:45 RBC 4.61 M/mm3 (3.60-5.2) 11/20/17 05:45 Hgb 13.5 GM/dL (10.7-15.3) 11/20/17 05:45 Hct 41.8 % (32.4-45.2) 11/20/17 05:45 MCV 90.8 fl (80-96) 11/20/17 05:45 MCH 29.2 pg (25.7-33.7) 11/20/17 05:45 MCHC 32.2 g/dl (32.0-36.0) 11/20/17 05:45 RDW 14.9 % (11.6-15.6) 11/20/17 05:45 Plt Count 206 K/MM3 (134-434) D 11/20/17 05:45 MPV 11.1 fl (7.5-11.1) 11/20/17 05:45 Sodium 141 mmol/L (136-145) 11/20/17 05:45 Potassium 4.3 mmol/L (3.5-5.1) 11/20/17 05:45 Chloride 109 mmol/L (98-107) H 11/20/17 05:45 Carbon Dioxide 24 mmol/L (21-32) 11/20/17 05:45 Anion Gap 8 (8-16) 11/20/17 05:45 BUN 13 mg/dL (7-18) 11/20/17 05:45 Creatinine 0.8 mg/dL (0.55-1.02) 11/20/17 05:45 Creat Clearance w eGFR > 60 (>60) 11/20/17 05:45 Random Glucose 86 mg/dL (74-106) 11/20/17 05:45 Calcium 8.6 mg/dL (8.5-10.1) 11/20/17 05:45 Total Bilirubin 0.2 mg/dL (0.2-1.0) D 11/20/17 05:45 AST 21 U/L (15-37) 11/20/17 05:45 ALT 20 U/L (12-78) 11/20/17 05:45 Alkaline Phosphatase 137 U/L (45-117) H 11/20/17 05:45 Total Protein 6.8 g/dl (6.4-8.2) 11/20/17 05:45 Albumin 3.7 g/dl (3.4-5.0) 11/20/17 05:45 Urine Color Ltyellow 11/19/17 18:00 Urine Appearance Clear 11/19/17 18:00 Urine pH 7.0 (5.0-8.0) D 11/19/17 18:00 Ur Specific [place] 1.026 (1.001-1.035) 11/19/17 18:00 Urine Protein Negative (NEGATIVE) 11/19/17 18:00 Urine Glucose (UA) Negative (NEGATIVE) 11/19/17 18:00 Urine Ketones Negative (NEGATIVE) 11/19/17 18:00 Urine Blood 1+ (NEGATIVE) H 11/19/17 18:00 Urine Nitrite Negative (NEGATIVE) 11/19/17 18:00 Urine Bilirubin Negative (NEGATIVE) 11/19/17 18:00 Urine Urobilinogen 2.0 mg/dL (0.2-1.0) H 11/19/17 18:00 Ur Leukocyte Esterase Negative (NEGATIVE) 11/19/17 18:00 Urine WBC (Auto) 0-2 /hpf (3-5) 11/19/17 18:00 Urine RBC (Auto) 0-2 /hpf (0-3) 11/19/17 18:00 Ur Epithelial Cells 0-3 /HPF (FEW) 11/19/17 18:00 Urine Mucus 1+ 11/19/17 18:00 RPR Titer Nonreactive (NONREACTIVE) 11/20/17 05:45 HIV 1&2 Antibody Screen Negative 11/19/17 15:00 HIV P24 Antigen Negative 11/19/17 15:00 Assessment: 11/21/17 09:48 WITHDRAWAL SYMPTOM Plan: CONTINUE DETOX
[2017-11-21] MEDS ORDERED: METHADONE HCL 5 MG TABLET (FOR DETOX USE ONLY) PO ONE (10:00)
[2017-11-21] MEDS: cloNIDine HCL 0.1 MG TABLET PO SCH ×2 (10:05→22:08)
[2017-11-21] MEDS: PRENATAL VITAMINS W/ FOLIC ACID TABLET (FP) PO SCH (10:06)
[2017-11-21] MEDS: NICOTINE 21 MG/24 HOURS TOPICAL PATCH TD SCH (10:09)
[2017-11-21] MEDS: diazePAM 5 MG TABLET PO PRN ×3 (10:09→18:44)
[2017-11-21] MEDS: THIAMINE HCL 100 MG TABLET (FP) PO SCH (22:08)
[2017-11-21] MEDS: QUEtiapine FUMARATE 50 MG TABLET PO SCH (22:08)
[2017-11-22] MEDS: diazePAM 5 MG TABLET PO PRN ×4 (01:51→14:43)
--- NOTE | 2017-11-22 09:13 | PN ---
BHS Progress Note (SOAP) Subjective: ALERT,IRRITABLE,ANXIOUS,INTERRUPTED SLEEP,PAIN IN THE BODY Objective: 11/22/17 09:12 Vital Signs Temperature 97.9 F 11/22/17 06:00 Pulse Rate 62 11/22/17 06:00 Respiratory Rate 18 11/22/17 06:00 Blood Pressure 105/60 11/22/17 06:00 O2 Sat by Pulse Oximetry (%) Assessment: 11/22/17 09:12 WITHDRAWAL SYMPTOM Plan: CONTINUE DETOX
[2017-11-22] MEDS ORDERED: METHADONE HCL 5 MG TABLET (FOR DETOX USE ONLY) PO ONE (10:00)
[2017-11-22] MEDS: PRENATAL VITAMINS W/ FOLIC ACID TABLET (FP) PO SCH (10:14)
[2017-11-22] MEDS: cloNIDine HCL 0.1 MG TABLET PO SCH ×2 (10:14→22:14)
[2017-11-22] MEDS: NICOTINE 21 MG/24 HOURS TOPICAL PATCH TD SCH (10:15)
[2017-11-22] MEDS: IBUPROFEN 400 MG TABLET (FP) PO PRN ×2 (12:56→20:02)
[2017-11-22] MEDS: hydrOXYzine PAMOATE 50 MG CAPSULE (FP) PO PRN (18:49)
[2017-11-22] MEDS: QUEtiapine FUMARATE 50 MG TABLET PO SCH (22:14)
[2017-11-22] MEDS: THIAMINE HCL 100 MG TABLET (FP) PO SCH (22:14)
[2017-11-23] MEDS: hydrOXYzine PAMOATE 50 MG CAPSULE (FP) PO PRN ×4 (05:41→19:09)
[2017-11-23] MEDS: IBUPROFEN 400 MG TABLET (FP) PO PRN ×3 (05:41→18:01)
[2017-11-23] MEDS ORDERED: METHADONE HCL 10 MG TABLET (FOR DETOX USE ONLY) PO ONE (10:00)
[2017-11-23] MEDS: cloNIDine HCL 0.1 MG TABLET PO SCH ×2 (10:14→22:33)
[2017-11-23] MEDS: PRENATAL VITAMINS W/ FOLIC ACID TABLET (FP) PO SCH (10:15)
[2017-11-23] MEDS: NICOTINE 21 MG/24 HOURS TOPICAL PATCH TD SCH (10:15)
[2017-11-23] MEDS: ACETAMINOPHEN 325 MG TABLET (FP) PO PRN ×2 (10:18→14:54)
--- NOTE | 2017-11-23 10:22 | PN ---
S Progress Note (SOAP) Subjective: ALERT,IRRITABLE,ANXIOUS,INTERRUPTED SLEEP Objective: 11/23/17 10:21 Vital Signs Temperature 97.7 F 11/23/17 09:51 Pulse Rate 74 11/23/17 09:51 Respiratory Rate 18 11/23/17 09:51 Blood Pressure 134/66 11/23/17 09:51 O2 Sat by Pulse Oximetry (%) Assessment: 11/23/17 10:21 WITHDRAWAL SYMPTOM Plan: CONTINUE DETOX,DISCHARGE IN AM
[2017-11-23 22:31] VITALS: TEMP 98.1
[2017-11-23] MEDS: THIAMINE HCL 100 MG TABLET (FP) PO SCH (22:33)
[2017-11-23] MEDS: QUEtiapine FUMARATE 50 MG TABLET PO SCH (22:33)
[2017-11-24] MEDS: hydrOXYzine PAMOATE 50 MG CAPSULE (FP) PO PRN ×2 (03:13→10:16)
[2017-11-24] MEDS: IBUPROFEN 400 MG TABLET (FP) PO PRN (05:20)
[2017-11-24] MEDS ORDERED: METHADONE HCL 5 MG TABLET (FOR DETOX USE ONLY) PO ONE (06:00)
[2017-11-24 06:16] VITALS: BP 113/59; PULSE 59
--- NOTE | 2017-11-24 09:06 | DS ---
[facility] Detox Discharge Summary Admission Date: 11/19/17 Discharge Date: 11/24/17 - History Present History: Cocaine Dependence, Opioid Dependence Additional Comments: follow up with after care program as arrangement Pertinent Past History: nicotine dependence weight loss insomnia - Physical Exam Results Vital Signs: Vital Signs Temperature 98.1 F 11/24/17 04:00 Pulse Rate 59 L 11/24/17 04:00 Respiratory Rate 16 11/24/17 04:00 Blood Pressure 113/59 11/24/17 04:00 O2 Sat by Pulse Oximetry (%) Pertinent Admission Physical Exam Findings: withdrawal signs and symptom - Treatment Hospital Course: Detox Protocol Followed, Detoxed Safely, Responded well, Discharged Condition Good Patient has Accepted a Rehab Referral to: declined - Medication Discharge Medications: Ambulatory Orders NK [No Known Home Medication] 11/19/17 - Diagnosis (1) Opioid dependence with withdrawal Current Visit: Yes Status: Acute (2) Cocaine dependence Current Visit: Yes Status: Acute (3) Nicotine dependence Current Visit: No Status: Chronic Qualifiers: Nicotine product type: cigarettes Substance use status: uncomplicated Qualified Code(s): F17.210 - Nicotine dependence, cigarettes, uncomplicated (4) Weight loss Current Visit: No Status: Chronic (5) Insomnia Current Visit: Yes Status: Acute - AMA Did Patient Leave Against Medical Advice: No
[2017-11-24] MEDS: cloNIDine HCL 0.1 MG TABLET PO SCH (10:16)
[2017-11-24] MEDS: PRENATAL VITAMINS W/ FOLIC ACID TABLET (FP) PO SCH (10:16)
[2017-11-24] MEDS: ACETAMINOPHEN 325 MG TABLET (FP) PO PRN (10:17)
[2017-11-24] MEDS: NICOTINE 21 MG/24 HOURS TOPICAL PATCH TD SCH (10:18)
== END 2017-11-24 11:08 | disposition home or self-care (01) | DRG 773 ==
LOC: YASAS 11:24 → Y6N 15:26
PROVIDERS: ADMIT Internal Medicine; ATTEND Internal Medicine
PROC: HZ2ZZZZ Detoxification Services for Substance Abuse Treatment (ICD-10-PCS; principal; 2017-11-19)
DX: F11.23 Opioid dependence with withdrawal (principal); F14.20 Cocaine dependence, uncomplicated; F17.210 Nicotine dependence, cigarettes, uncomplicated; F19.282 Other psychoactive substance dependence with psychoactive substance-induced sleep disorder; G47.00 Insomnia, unspecified; R00.1 Bradycardia, unspecified; Z87.898 Personal history of other specified conditions
CPT/HCPCS: 36415; 80053; 81003; 81015; 85027; 86593; 87389; 93005; 93010; J0735

== ENCOUNTER 2018-01-21 14:17 | Inpatient (IN) | payer OTHER ==
--- NOTE | 2018-01-21 17:17 | HP ---
COWS - Scale Resting Pulse: 0= [place] 80 or Below Sweatin= No chills or Flushing Restless Observation: 1= Difficult to Sit Still Pupil Size: 0= Normal to Room Light Bone or Joint Aches: 0= None Runny Nose/ Eye Tearin= Runny Nose/Eyes GI Upset > 30mins: 0= None Tremor Observation: 2= Slight Tremor Visible Yawning Observation: 1= 1-2x During Session Anxiety or Irritability: 2=Irritable/Anxious Goose Flesh Skin: 0=Smooth Skin COWS Score: 8 Admission [facility] - HPI Chief Complaint: I am here for detox Allergies/Adverse Reactions: Allergies Allergy/AdvReac Type Severity Reaction Status Date / Time No Known Allergies Allergy Verified 01/21/18 17:06 History of Present Illness: Patient is a 52 years old female with nicotine, heroin, crack/ cocaine dependence dependence is here seeking detox. Last detox [facility] Feb 11/19/17 - . Reports recent weight loss and insomnia, denies any other medical problems. longest period of sobriety 6 months. Denies suicidal / homicidal ideation or suicide attempts. Denies hx of seizures or blackouts. Exam Limitations: No Limitations - Ebola screening Have you traveled outside of the country in the last 21 days: No Have you had contact with anyone from an Ebola affected area: No Have you been sick,other than usual withdrawal symptoms: No Do you have a fever: No - Review of Systems Constitutional: Loss of Appetite, Changes in sleep, Unintentional Wgt. Loss (10 lbs last two months) EENT: reports: Other (missing teeth, wears dentures) Respiratory: reports: No Symptoms reported Cardiac: reports: No Symptoms Reported GI: reports: Poor Appetite, Poor Fluid Intake : reports: No Symptoms Reported Musculoskeletal: reports: No Symptoms Reported Integumentary: reports: No Symptoms Reported Neuro: reports: No Symptoms reported Endocrine: reports: Increased Thirst Hematology: reports: No Symptoms Reported Psychiatric: reports: Mood/Affect Appropiate, Orientated x3 Other Systems: Reviewed and Negative Patient History - Patient Medical History Hx Anemia: No Hx Asthma: No Hx Chronic Obstructive Pulmonary Disease (COPD): No Hx Cancer: No Hx Cardiac Disorders: No Hx Congestive Heart Failure: No Hx Hypertension: No Hx Hypercholesterolemia: No Hx Pacemaker: No HX Cerebrovascular Accident: No Hx Seizures: No Hx Dementia: No Hx Diabetes: No Hx Gastrointestinal Disorders: No Hx Liver Disease: No Hx Genitourinary Disorders: No Hx Sexually Transmitted Disorders: No Hx Renal Disease (ESRD): No Hx Thyroid Disease: No Hx Human Immunodeficiency Virus (HIV): Yes (Last tested Oct 2017) Hx Hepatitis C: No Hx Depression: No Hx Suicide Attempt: No Hx Bipolar Disorder: No Hx Schizophrenia: No - Patient Surgical History Past Surgical History: No Hx Neurologic Surgery: No Hx Cataract Extraction: No Hx Cardiac Surgery: No Hx Lung Surgery: No Hx Breast Surgery: No Hx Breast Biopsy: No Hx Abdominal Surgery: No Hx Appendectomy: No Hx Cholecystectomy: No Hx Genitourinary Surgery: No Hx Section: No Hx Orthopedic Surgery: No Hx Hysterectomy: No Anesthesia Reaction: No - PPD History Previous Implant?: Yes Documented Results: Negative w/proof Implanted On Prior [facility] Admission?: Yes Date: 05/31/17 Results: 0 MM PPD to be Administered?: No - Reproductive History Last Menstrual Period: 12/23/17 Patient : No - Smoking Cessation Smoking history: Current every day smoker Have you smoked in the past 12 months: Yes Aproximately how many cigarettes per day: 10 Cigars Per Day: 0 Hx Chewing Tobacco Use: No Initiated information on smoking cessation: Yes 'Breaking Loose' booklet given: 01/21/18 - Substance & Tx. History Hx Alcohol Use: No Hx Substance Use: Yes Substance Use Type: Cocaine, Heroin Hx Substance Use Treatment: Yes ([facility] 11/19/17 - 11/24/2017) - Substances Abused Heroin Route: Injection Frequency: Daily Amount used: 7 BAGS Age of first use: 51 Date of Last Use: 01/21/18 Crack Route: Smoking Frequency: Daily Amount used: $40 Age of first use: 27 Date of Last Use: 01/19/18 Family Disease History - Family Disease History Family Disease History: Other: Father (NO CONTACT), Mother ( LIVER ) Admission Physical Exam S - Vital Signs Vital Signs: Vital Signs - 24 hr 01/21/18 16:25 Temperature 98.1 F Pulse Rate 61 Respiratory 20 Rate Blood Pressure 121/70 - Physical General Appearance: Yes: Disheveled, Thin, Anxious HEENTM: Yes: EOMI, Hearing grossly Normal, Normal ENT Inspection, Normocephalic , Normal Voice, KAREN, Pharynx Normal, Tm's normal, Nasal Congestion Respiratory: Yes: Chest Non-Tender, Lungs Clear, Normal Breath Sounds, No Respiratory Distress, No Accessory Muscle Use Neck: Yes: No masses,lesions,Nodules, Trachea in good position Breast: Yes: Breast Exam Deferred Cardiology: Yes: Regular Rhythm, Regular Rate Abdominal: Yes: Normal Bowel Sounds, Non Tender, Flat, Soft Genitourinary: Yes: Within Normal Limits Back: Yes: Normal Inspection Musculoskeletal: Yes: full range of Motion, Gait Steady, Pelvis Stable Extremities: Yes: Normal Capillary Refill, Normal Inspection, Normal Range of Motion, Non-Tender 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, Fully Oriented, Alert, Motor Strength 5/5, Depressed Affect Integumentary: Yes: Normal Color, Warm, Moist Lymphatic: Yes: Within Normal Limits - Diagnostic (1) Cocaine dependence Current Visit: Yes Status: Acute Qualifiers: Substance use status: uncomplicated Qualified Code(s): F14.20 - Cocaine dependence, uncomplicated (2) Insomnia Current Visit: Yes Status: Acute Qualifiers: Insomnia type: unspecified Qualified Code(s): G47.00 - Insomnia, unspecified (3) Opioid dependence with withdrawal Current Visit: Yes Status: Acute (4) Nicotine dependence Current Visit: Yes Status: Chronic Qualifiers: Nicotine product type: cigarettes Substance use status: uncomplicated Qualified Code(s): F17.210 - Nicotine dependence, cigarettes, uncomplicated (5) Weight loss Current Visit: Yes Status: Acute Cleared for Admission [facility] - Detox or Rehab [facility] Level of Care: Medically Supervised Detox Regimen/Protocol: Methadone [facility] Breath Alcohol Content Breath Alcohol Content: 0 Urine Pregancy Test - Result Urine Test Results: Negative- NO Line Present Urine Drug Screen - Results Drug Screen Negative: No Urine Drug Screen Results: REILLY-Cocaine, OPI-Opiates
[2018-01-21] MEDS ORDERED: guaiFENesin/D-METHORPHAN HB 10 ML UNIT-DOSE CUPS PO PRN (17:20)
[2018-01-21] MEDS ORDERED: LOPERAMIDE HCL 2 MG CAPSULE PO PRN (17:20)
[2018-01-21] MEDS ORDERED: MAGNESIUM CITRATE 300 ML BOTTLE PO PRN (17:20)
[2018-01-21] MEDS ORDERED: MENTHOL/PHENOL 1 EACH UD MM PRN (17:20)
[2018-01-21] MEDS ORDERED: P-EPHED 60MG/TRIPROLIDI 2.5MG TABLET PO PRN (17:20)
[2018-01-21] MEDS ORDERED: MAGNESIUM HYDROX 2400MG/30ML ORAL SUSPENSION 30 ML CUP PO PRN (17:20)
[2018-01-21] MEDS ORDERED: MAG HYDROX/AL HYDROX/SIMETH 30 ML UNIT-DOSE CUP PO PRN (17:20)
[2018-01-21] MEDS ORDERED: NICOTINE POLACRILEX 2 MG GUM BC PRN (17:20)
[2018-01-21] MEDS ORDERED: METHADONE HCL 10 MG TABLET (FOR DETOX USE ONLY) PO ONE ×2 (17:20→23:00)
[2018-01-21 17:41] VITALS: BMI 24.3
[2018-01-21] MEDS: diazePAM 5 MG TABLET PO PRN ×2 (18:26→22:25)
[2018-01-21] MEDS ORDERED: MELATONIN 5 MG TABLETS PO PRN (22:00)
[2018-01-21] MEDS: THIAMINE HCL 100 MG TABLET (FP) PO SCH (22:24)
[2018-01-22] MEDS: diazePAM 5 MG TABLET PO PRN ×5 (02:50→22:20)
[2018-01-22 09:58] LABS: HEMATOCRIT 35.6 % (32.4-45.2); MCH 30.2 pg (25.7-33.7); MCHC 33.7 g/dl (32.0-36.0); MEAN CELL VOLUME 89.5 fl (80-96); MEAN PLT VOLUME 10.9 fl (7.5-11.1); PLATELET COUNT 143 K/MM3 (134-434); RBC 3.98 M/mm3 (3.60-5.2); RDW 14.9 % (11.6-15.6); WHITE BLOOD COUNT 5.2 K/mm3 (4.0-10.0)
[2018-01-22] MEDS ORDERED: METHADONE HCL 10 MG TABLET (FOR DETOX USE ONLY) PO ONE (10:00)
[2018-01-22] MEDS ORDERED: NICOTINE 14 MG/24 HOURS TOPICAL PATCH TD SCH (10:00)
[2018-01-22] MEDS: PRENATAL VITAMINS W/ FOLIC ACID TABLET (FP) PO SCH (10:22)
[2018-01-22] MEDS: NICOTINE 21 MG/24 HOURS TOPICAL PATCH TD SCH (10:23)
--- NOTE | 2018-01-22 10:59 | PN ---
BHS COWS - Scale Resting Pulse: 0= [place] 80 or Below Sweatin= Chills/Flushing Restless Observation: 3= Extraneous Movement Pupil Size: 1= Pupils >than Normal Bone or Joint Aches: 2= Severe Diffuse Aches Runny Nose/ Eye Tearin= Nasal Congestion GI Upset > 30mins: 2= Nausea/Diarrhea Tremor Observation of Outstretched Hands: 2= Slight Tremor Visible Yawning Observation: 1= 1-2x During Session Anxiety or Irritability: 2=Irritable/Anxious Goose Flesh Skin: 0=Smooth Skin COWS Score: 15 BHS Progress Note (SOAP) Subjective: ALERT,IRRITABLE,ANXIOUS,INTERRUPTED SLEEP,PAIN IN THE BODY AND BACK Objective: 01/22/18 10:56 Vital Signs Temperature 97.7 F 01/22/18 10:28 Pulse Rate 78 01/22/18 10:28 Respiratory Rate 18 01/22/18 10:28 Blood Pressure 107/81 01/22/18 10:28 O2 Sat by Pulse Oximetry (%) 01/22/18 10:57 EKG SINUS BRADYCARDIA 50/MIN PROLONG QT 416/379 NO CHEST PAIN,NO SOB,NO DIZZINESS 01/22/18 07:00 WBC 5.2 RBC 3.98 Hgb 12.0 D Hct 35.6 MCV 89.5 MCHC 33.7 RDW 14.9 Plt Count 143 D LABS PENDING Assessment: 01/22/18 10:59 WITHDRAWAL SYMPTOM Plan: CONTINUE DETOX
[2018-01-22 11:11] LABS: CHLORIDE 106 mmol/L (98-107); POTASSIUM 4.1 mmol/L (3.5-5.1); SODIUM 141 mmol/L (136-145)
[2018-01-22 11:29] LABS: ALBUMIN 3.1 g/dl (3.4-5.0); ALK PHOS 111 U/L (45-117); ANION GAP 8 (8-16); BILIRUBIN,TOTAL 0.2 mg/dL (0.2-1.0); BLOOD UREA NITROGEN 15 mg/dL (7-18); CALCIUM 8.6 mg/dL (8.5-10.1); CO2 27 mmol/L (21-32); CREATININE 0.9 mg/dL (0.55-1.02); GLUCOSE,RANDOM 69 mg/dL (74-106); SGOT/AST 22 U/L (15-37); SGPT/ALT 19 U/L (12-78); TOT PROT 5.6 g/dl (6.4-8.2)
--- NOTE | 2018-01-22 12:34 | CONSULT ---
[facility] Psychiatric Consult - Data Date of interview: 01/22/18 Admission source: [facility] Identifying data: Patient is a 52 year old single female, mother of 11, unemployed but is receiving food stamps, and is currently living with the father of her children. This is one of multiple admissions for patient. Pt. admitted to for cocaine and opiate dependence. Substance Abuse History: Following information confirmed with Ms. Elkins: Smoking Cessation. Smoking history: Current every day smoker. Have you smoked in the past 12 months: Yes. Aproximately how many cigarettes per day: 10. Cigars Per Day: 0. Hx Chewing Tobacco Use: No. Initiated information on smoking cessation: Yes. 'Breaking Loose' booklet given: 01/21/18. - Substance & Tx. History. Hx Alcohol Use: No. Hx Substance Use: Yes. Substance Use Type : Cocaine, Heroin. Hx Substance Use Treatment: Yes ([facility] 11/19/17 - 11/24/2017). - Substances Abused. Heroin. Route: Injection. Frequency: Daily. Amount used: 7 BAGS. Age of first use: 51. Date of Last Use: 01/21/18. Crack. Route: Smoking. Frequency: Daily. Amount used: $40. Age of first use: 27. Date of Last Use: 01/19/18 Medical History: HIV Psychiatric History: Patient denies h/o psychiatric hospitalizations, outpatient care and suicide attempt. Pt. reports poor sleep and is requesting Belsomra which she had received while in rehab in August of 2017. Physical/Sexual Abuse/Trauma History: Denies. Mental Status Exam - Mental Status Exam Alert and Oriented to: Time, Place, Person Cognitive Function: Good Patient Appearance: Well Groomed Mood: Hopeful Affect: Mood Congruent Patient Behavior: Appropriate, Cooperative Speech Pattern: Clear, Appropriate Voice Loudness: Normal Thought Process: Goal Oriented Thought Disorder: Not Present Hallucinations: Denies Suicidal Ideation: Denies Homicidal Ideation: Denies Insight/Judgement: Poor Sleep: Poorly Appetite: Fair Muscle strength/Tone: Normal Gait/Station: Normal Psychiatric Findings - Problem List ([place] 1, 2,3) (1) Cocaine dependence Current Visit: Yes Status: Acute Qualifiers: Substance use status: uncomplicated Qualified Code(s): F14.20 - Cocaine dependence, uncomplicated (2) Opioid dependence with withdrawal Current Visit: Yes Status: Acute (3) Substance-induced sleep disorder Current Visit: Yes Status: Acute - Initial Treatment Plan Initial Treatment Plan: Psychoeducation provided. Detoxification in progress. Belsomra 10mg qhs ordered. Pt. reports favorable effect from previously accepting belsomra while in rehab on 08/2017. Benefits and side effects discussed. Will continue to monitor.
[2018-01-22] MEDS: IBUPROFEN 400 MG TABLET (FP) PO PRN ×2 (13:07→19:09)
--- NOTE | 2018-01-22 13:30 | PN ---
S Progress Note Note: called to evaluate patient with injury to toes of left foot ,hit the chair in the dining,swelling of left 2nd ,pain in the 3rd,4th digit, able to ambulate, treatment ice pack motrin 400 mgs po q 6 hrs prn for pain x ray of left foot close monitoring
--- NOTE | 2018-01-22 13:33 | PN ---
[facility] Progress Note Note: patientt did not want to go to [facility] for x ray to day,she will wait for x ray to be done at [facility] in [place]
[2018-01-22] MEDS: ACETAMINOPHEN 325 MG TABLET (FP) PO PRN (17:48)
[2018-01-22] MEDS: THIAMINE HCL 100 MG TABLET (FP) PO SCH (22:15)
[2018-01-22] MEDS: SUVOREXANT 10 MG TABLET PO PRN (22:18)
[2018-01-23] MEDS: ACETAMINOPHEN 325 MG TABLET (FP) PO PRN ×3 (06:54→23:30)
--- NOTE | 2018-01-23 09:07 | PN ---
BHS COWS - Scale Resting Pulse: 0= [place] 80 or Below Sweatin= Chills/Flushing Restless Observation: 3= Extraneous Movement Pupil Size: 1= Pupils >than Normal Bone or Joint Aches: 2= Severe Diffuse Aches Runny Nose/ Eye Tearin= Nasal Congestion GI Upset > 30mins: 2= Nausea/Diarrhea Tremor Observation of Outstretched Hands: 2= Slight Tremor Visible Yawning Observation: 1= 1-2x During Session Anxiety or Irritability: 2=Irritable/Anxious Goose Flesh Skin: 0=Smooth Skin COWS Score: 15 BHS Progress Note (SOAP) Subjective: ALERT,IRRITABLE,ANXIOUS,PAIN IN LEFT FOOT AND TOES IS LESS, Objective: 01/23/18 09:05 Vital Signs Temperature 97.9 F 01/23/18 06:03 Pulse Rate 76 01/23/18 06:03 Respiratory Rate 18 01/23/18 06:03 Blood Pressure 111/67 01/23/18 06:03 O2 Sat by Pulse Oximetry (%) 01/23/18 09:05 Laboratory Last Values WBC 5.2 K/mm3 (4.0-10.0) 01/22/18 07:00 RBC 3.98 M/mm3 (3.60-5.2) 01/22/18 07:00 Hgb 12.0 GM/dL (10.7-15.3) D 01/22/18 07:00 Hct 35.6 % (32.4-45.2) 01/22/18 07:00 MCV 89.5 fl (80-96) 01/22/18 07:00 MCH 30.2 pg (25.7-33.7) 01/22/18 07:00 MCHC 33.7 g/dl (32.0-36.0) 01/22/18 07:00 RDW 14.9 % (11.6-15.6) 01/22/18 07:00 Plt Count 143 K/MM3 (134-434) D 01/22/18 07:00 MPV 10.9 fl (7.5-11.1) 01/22/18 07:00 Sodium 141 mmol/L (136-145) 01/22/18 07:00 Potassium 4.1 mmol/L (3.5-5.1) 01/22/18 07:00 Chloride 106 mmol/L (98-107) 01/22/18 07:00 Carbon Dioxide 27 mmol/L (21-32) 01/22/18 07:00 Anion Gap 8 (8-16) 01/22/18 07:00 BUN 15 mg/dL (7-18) 01/22/18 07:00 Creatinine 0.9 mg/dL (0.55-1.02) 01/22/18 07:00 Creat Clearance w eGFR > 60 (>60) 01/22/18 07:00 Random Glucose 69 mg/dL (74-106) L 01/22/18 07:00 Calcium 8.6 mg/dL (8.5-10.1) 01/22/18 07:00 Total Bilirubin 0.2 mg/dL (0.2-1.0) 01/22/18 07:00 AST 22 U/L (15-37) 01/22/18 07:00 ALT 19 U/L (12-78) 01/22/18 07:00 Alkaline Phosphatase 111 U/L (45-117) 01/22/18 07:00 Total Protein 5.6 g/dl (6.4-8.2) L 01/22/18 07:00 Albumin 3.1 g/dl (3.4-5.0) L 01/22/18 07:00 HIV 1&2 Antibody Screen Negative 01/22/18 07:00 HIV P24 Antigen Negative 01/22/18 07:00 01/23/18 09:06 RPR PENDING Assessment: 01/23/18 09:06 WITHDRAWAL SYMPTOM Plan: CONTINUE DETOX,FOR XRAY LEFT FFOT TODAY,LESS WITHDRAWAL,MEDICATION ADJUST
[2018-01-23 09:46] LABS: URINE APPEARANCE SLCLOUDY; URINE BILIRUBIN NEGATIVE (<2.0 mg/dL); URINE COLOR LTYELLOW; URINE GLUCOSE (UA) NEGATIVE (NEGATIVE); URINE KETONE NEGATIVE (NEGATIVE); URINE LEUK ESTERASE NEGATIVE (NEGATIVE); URINE NITRITE NEGATIVE (NEGATIVE); URINE PROTEIN NEGATIVE (NEGATIVE); URINE UROBILINOGEN NEGATIVE mg/dL (0.2-1.0)
--- NOTE | 2018-01-23 09:48 | EKG ---
Test Reason : Blood Pressure : / mmHG Vent. Rate : 050 BPM Atrial Rate : 050 BPM P-R Int : 120 ms QRS Dur : 082 ms QT Int : 416 ms P-R-T Axes : 070 037 043 degrees QTc Int : 379 ms SINUS BRADYCARDIA OTHERWISE NORMAL ECG WHEN COMPARED WITH ECG OF 19-NOV-2017 15:56, NO SIGNIFICANT CHANGE WAS FOUND Confirmed by EVANGELINA SOSA MD ([id number]) on 01/23/2018 9:48:18 AM Referred By: Confirmed By:EVANGELINA SOSA MD
[2018-01-23] MEDS ORDERED: METHADONE HCL 5 MG TABLET (FOR DETOX USE ONLY) PO ONE (10:00)
[2018-01-23] MEDS: PRENATAL VITAMINS W/ FOLIC ACID TABLET (FP) PO SCH (10:32)
[2018-01-23] MEDS: diazePAM 5 MG TABLET PO PRN ×3 (10:33→22:07)
[2018-01-23] MEDS: NICOTINE 21 MG/24 HOURS TOPICAL PATCH TD SCH (10:33)
[2018-01-23] MEDS: IBUPROFEN 400 MG TABLET (FP) PO PRN ×2 (15:36→22:10)
[2018-01-23] MEDS: THIAMINE HCL 100 MG TABLET (FP) PO SCH (22:06)
[2018-01-23] MEDS: SUVOREXANT 10 MG TABLET PO PRN (22:09)
[2018-01-24] MEDS: diazePAM 5 MG TABLET PO PRN ×3 (03:50→14:29)
[2018-01-24] MEDS: ACETAMINOPHEN 325 MG TABLET (FP) PO PRN ×2 (07:52→11:48)
[2018-01-24] MEDS ORDERED: METHADONE HCL 10 MG TABLET (FOR DETOX USE ONLY) PO ONE (10:00)
[2018-01-24] MEDS ORDERED: METHADONE HCL 5 MG TABLET (FOR DETOX USE ONLY) PO ONE (10:00)
[2018-01-24] MEDS: NICOTINE 21 MG/24 HOURS TOPICAL PATCH TD SCH (10:11)
[2018-01-24] MEDS: PRENATAL VITAMINS W/ FOLIC ACID TABLET (FP) PO SCH (10:11)
--- NOTE | 2018-01-24 10:38 | PN ---
BHS Progress Note (SOAP) Subjective: ALERT,IRRITABLE,INTERRUPTED SLEEP,PAIN IN LEFT FOOT IS LESS,AMBULATION WITHOUT DIFFICULT XRAY LEFT FOOT ON 01/24/18 SHOWED NO FX,BUNION LEFT Objective: 01/24/18 10:36 Vital Signs Temperature 97.7 F 01/24/18 09:24 Pulse Rate 69 01/24/18 09:24 Respiratory Rate 16 01/24/18 09:24 Blood Pressure 113/69 01/24/18 09:24 O2 Sat by Pulse Oximetry (%) Assessment: 01/24/18 10:36 WITHDRAWAL SYMPTOM Plan: CONTINUE DETOX,DISCHARGE IN AM
[2018-01-24] MEDS: IBUPROFEN 400 MG TABLET (FP) PO PRN (11:38)
[2018-01-24] MEDS ORDERED: ACETAMINOPHEN 325 MG TABLET (FP) PO PRN (11:59)
[2018-01-24] MEDS: hydrOXYzine PAMOATE 50 MG CAPSULE (FP) PO PRN ×2 (13:44→19:31)
[2018-01-24] MEDS: SUVOREXANT 10 MG TABLET PO PRN (22:20)
[2018-01-24] MEDS: THIAMINE HCL 100 MG TABLET (FP) PO SCH (22:20)
[2018-01-25] MEDS: hydrOXYzine PAMOATE 50 MG CAPSULE (FP) PO PRN (03:15)
[2018-01-25] MEDS ORDERED: METHADONE HCL 5 MG TABLET (FOR DETOX USE ONLY) PO ONE (06:00)
[2018-01-25 07:03] VITALS: BP 109/49; PULSE 64; TEMP 98.1
--- NOTE | 2018-01-25 08:53 | PN ---
S Progress Note (SOAP) Subjective: ALERT,NO COMPLAINT Objective: 01/25/18 08:51 Vital Signs Temperature 98.1 F 01/25/18 07:02 Pulse Rate 64 01/25/18 07:02 Respiratory Rate 16 01/25/18 07:02 Blood Pressure 109/49 01/25/18 07:02 O2 Sat by Pulse Oximetry (%) DETOX COMPLETED,NO WITHDRAWAL SYMPTOM Assessment: 01/25/18 08:52 DETOX COMPLETED Plan: DISCHARGE TODAY,FOLLOW UP WITH AFTER CARE PROGRAM ARRANGEMENT
--- NOTE | 2018-01-25 09:00 | DS ---
[facility] Detox Discharge Summary Admission Date: 01/21/18 Discharge Date: 01/25/18 - History Present History: Cocaine Dependence, Opioid Dependence Pertinent Past History: NICOTINE DEPENDENCE WEIGHT LOSS INSOMNIA - Physical Exam Results Vital Signs: Vital Signs Temperature 98.1 F 01/25/18 07:02 Pulse Rate 64 01/25/18 07:02 Respiratory Rate 16 01/25/18 07:02 Blood Pressure 109/49 01/25/18 07:02 O2 Sat by Pulse Oximetry (%) Pertinent Admission Physical Exam Findings: WITHDRAWAL SIGNS AND SYMPTOM Laboratory Last Values WBC 5.2 K/mm3 (4.0-10.0) 01/22/18 07:00 RBC 3.98 M/mm3 (3.60-5.2) 01/22/18 07:00 Hgb 12.0 GM/dL (10.7-15.3) D 01/22/18 07:00 Hct 35.6 % (32.4-45.2) 01/22/18 07:00 MCV 89.5 fl (80-96) 01/22/18 07:00 MCH 30.2 pg (25.7-33.7) 01/22/18 07:00 MCHC 33.7 g/dl (32.0-36.0) 01/22/18 07:00 RDW 14.9 % (11.6-15.6) 01/22/18 07:00 Plt Count 143 K/MM3 (134-434) D 01/22/18 07:00 MPV 10.9 fl (7.5-11.1) 01/22/18 07:00 Sodium 141 mmol/L (136-145) 01/22/18 07:00 Potassium 4.1 mmol/L (3.5-5.1) 01/22/18 07:00 Chloride 106 mmol/L (98-107) 01/22/18 07:00 Carbon Dioxide 27 mmol/L (21-32) 01/22/18 07:00 Anion Gap 8 (8-16) 01/22/18 07:00 BUN 15 mg/dL (7-18) 01/22/18 07:00 Creatinine 0.9 mg/dL (0.55-1.02) 01/22/18 07:00 Creat Clearance w eGFR > 60 (>60) 01/22/18 07:00 Random Glucose 69 mg/dL (74-106) L 01/22/18 07:00 Calcium 8.6 mg/dL (8.5-10.1) 01/22/18 07:00 Total Bilirubin 0.2 mg/dL (0.2-1.0) 01/22/18 07:00 AST 22 U/L (15-37) 01/22/18 07:00 ALT 19 U/L (12-78) 01/22/18 07:00 Alkaline Phosphatase 111 U/L (45-117) 01/22/18 07:00 Total Protein 5.6 g/dl (6.4-8.2) L 01/22/18 07:00 Albumin 3.1 g/dl (3.4-5.0) L 01/22/18 07:00 Urine Color Ltyellow 01/23/18 08:30 Urine Appearance Slcloudy 01/23/18 08:30 Urine pH 5.0 (5.0-8.0) D 01/23/18 08:30 Ur Specific [place] 1.015 (1.001-1.035) 01/23/18 08:30 Urine Protein Negative (NEGATIVE) 01/23/18 08:30 Urine Glucose (UA) Negative (NEGATIVE) 01/23/18 08:30 Urine Ketones Negative (NEGATIVE) 01/23/18 08:30 Urine Blood Negative (NEGATIVE) 01/23/18 08:30 Urine Nitrite Negative (NEGATIVE) 01/23/18 08:30 Urine Bilirubin Negative (<2.0 mg/dL) 01/23/18 08:30 Urine Urobilinogen Negative mg/dL (0.2-1.0) 01/23/18 08:30 Ur Leukocyte Esterase Negative (NEGATIVE) 01/23/18 08:30 RPR Titer Nonreactive (NONREACTIVE) 01/22/18 07:00 HIV 1&2 Antibody Screen Negative 01/22/18 07:00 HIV P24 Antigen Negative 01/22/18 07:00 Vital Signs Temperature 98.1 F 01/25/18 07:02 Pulse Rate 64 01/25/18 07:02 Respiratory Rate 16 01/25/18 07:02 Blood Pressure 109/49 01/25/18 07:02 O2 Sat by Pulse Oximetry (%) - Treatment Hospital Course: Detox Protocol Followed, Detoxed Safely, Responded well, Discharged Condition Good Patient has Accepted a Rehab Referral to: DECLINED - Medication Discharge Medications: Ambulatory Orders NK [No Known Home Medication] 11/19/17 - Diagnosis (1) Opioid dependence with withdrawal Current Visit: Yes Status: Acute (2) Cocaine dependence Current Visit: Yes Status: Acute Qualifiers: Substance use status: uncomplicated Qualified Code(s): F14.20 - Cocaine dependence, uncomplicated (3) Insomnia Current Visit: Yes Status: Acute Qualifiers: Insomnia type: unspecified Qualified Code(s): G47.00 - Insomnia, unspecified (4) Weight loss Current Visit: Yes Status: Acute (5) Nicotine dependence Current Visit: Yes Status: Chronic Qualifiers: Nicotine product type: cigarettes Substance use status: uncomplicated Qualified Code(s): F17.210 - Nicotine dependence, cigarettes, uncomplicated (6) Dehydration Current Visit: No Status: Acute (7) Contusion of left foot Current Visit: Yes Status: Acute - AMA Did Patient Leave Against Medical Advice: No
[2018-01-25] MEDS ORDERED: METHADONE HCL 10 MG TABLET (FOR DETOX USE ONLY) PO ONE (10:00)
[2018-01-26] MEDS ORDERED: METHADONE HCL 5 MG TABLET (FOR DETOX USE ONLY) PO ONE (06:00)
== END 2018-01-25 06:49 | disposition home or self-care (01) | DRG 773 ==
LOC: YASAS 14:17 → Y6N 17:31
PROVIDERS: ADMIT Internal Medicine; ATTEND Internal Medicine
PROC: HZ2ZZZZ Detoxification Services for Substance Abuse Treatment (ICD-10-PCS; principal; 2018-01-21)
DX: F11.23 Opioid dependence with withdrawal (principal); F14.20 Cocaine dependence, uncomplicated; F17.210 Nicotine dependence, cigarettes, uncomplicated; F19.282 Other psychoactive substance dependence with psychoactive substance-induced sleep disorder; G47.00 Insomnia, unspecified; E86.0 Dehydration; S90.32XA Contusion of left foot, initial encounter; Z68.24 Body mass index [BMI] 24.0-24.9, adult; R63.4 Abnormal weight loss
CPT/HCPCS: 36415; 73630-TC-LT; 80053; 81003; 85027; 86593; 87389; 93005; 93010

== ENCOUNTER 2018-04-16 13:02 | Inpatient (IN) | payer OTHER ==
[2018-04-16 15:34] VITALS: BMI 27.4
--- NOTE | 2018-04-16 19:40 | HP ---
COWS - Scale Resting Pulse: 1= SD 81-100 Sweatin= Chills/Flushing Restless Observation: 1= Difficult to Sit Still Pupil Size: 1= Pupils >than Normal Bone or Joint Aches: 1= Mild Discomfort Runny Nose/ Eye Tearin= Runny Nose/Eyes GI Upset > 30mins: 2= Nausea/Diarrhea Tremor Observation: 2= Slight Tremor Visible Yawning Observation: 1= 1-2x During Session Anxiety or Irritability: 2=Irritable/Anxious Goose Flesh Skin: 3=Piloerection COWS Score: 17 Admission ROS S - [facility] Chief Complaint: opioid withdrawal symptoms Allergies/Adverse Reactions: Allergies Allergy/AdvReac Type Severity Reaction Status Date / Time No Known Allergies Allergy Verified 04/16/18 16:50 History of Present Illness: 53 yo female with hx of coaince, heroin and nicotine dependnece is here seeking detox Denies suicidal ideaiton or hx of suicide attempt Exam Limitations: No Limitations - Ebola screening Have you traveled outside of the country in the last 21 days: No Have you had contact with anyone from an Ebola affected area: No Have you been sick,other than usual withdrawal symptoms: No Do you have a fever: No - Review of Systems Constitutional: Chills, Changes in sleep EENT: reports: Nose Congestion Respiratory: reports: No Symptoms reported Cardiac: reports: No Symptoms Reported GI: reports: Nausea, Poor Fluid Intake, Vomiting : reports: No Symptoms Reported Musculoskeletal: reports: Back Pain, Joint Pain Integumentary: reports: No Symptoms Reported Neuro: reports: No Symptoms reported Endocrine: reports: Increased Thirst Hematology: reports: No Symptoms Reported Psychiatric: reports: Orientated x3, Depressed Other Systems: Reviewed and Negative Patient History - Patient Medical History Hx Anemia: No Hx Asthma: No Hx Chronic Obstructive Pulmonary Disease (COPD): No Hx Cancer: No Hx Cardiac Disorders: No Hx Congestive Heart Failure: No Hx Hypertension: No Hx Hypercholesterolemia: No Hx Pacemaker: No HX Cerebrovascular Accident: No Hx Seizures: No Hx Dementia: No Hx Diabetes: No Hx Gastrointestinal Disorders: No Hx Liver Disease: No Hx Genitourinary Disorders: No Hx Sexually Transmitted Disorders: No Hx Renal Disease (ESRD): No Hx Thyroid Disease: No Hx Human Immunodeficiency Virus (HIV): Yes (Last tested Oct 2017) Hx Hepatitis C: No Hx Depression: No Hx Suicide Attempt: No Hx Bipolar Disorder: No Hx Schizophrenia: No - Patient Surgical History Past Surgical History: No Hx Neurologic Surgery: No Hx Cataract Extraction: No Hx Cardiac Surgery: No Hx Lung Surgery: No Hx Breast Surgery: No Hx Breast Biopsy: No Hx Abdominal Surgery: No Hx Appendectomy: No Hx Cholecystectomy: No Hx Genitourinary Surgery: No Hx Section: No Hx Orthopedic Surgery: No Hx Hysterectomy: No Anesthesia Reaction: No - PPD History Previous Implant?: Yes Documented Results: Negative w/proof Implanted On Prior [facility] Admission?: Yes Date: 05/31/17 Results: 0 mm PPD to be Administered?: No - Reproductive History Patient is a Female of Child Bearing Age (11 -55 yrs old): Yes (menopoause ) Last Menstrual Period: 12/23/17 Patient : No - Smoking Cessation Smoking history: Current every day smoker Have you smoked in the past 12 months: Yes Aproximately how many cigarettes per day: 10 Cigars Per Day: 0 Hx Chewing Tobacco Use: No Initiated information on smoking cessation: Yes 'Breaking Loose' booklet given: 04/16/18 - Substance & Tx. History Hx Alcohol Use: Yes Hx Substance Use: Yes Substance Use Type: Cocaine, Heroin Hx Substance Use Treatment: Yes - Substances Abused Heroin Route: Inhalation Frequency: Daily Amount used: 8 bags Age of first use: 51 Date of Last Use: 04/15/18 Crack Route: Smoking Frequency: 3-6 times per week Amount used: $70 Age of first use: 27 Date of Last Use: 04/15/18 Family Disease History - Family Disease History Family Disease History: Other: Father (NO CONTACT), Mother ( LIVER ) Admission Physical Exam S - Vital Signs Vital Signs: Vital Signs - 24 hr 04/16/18 04/16/18 15:32 19:22 Temperature 98.2 F 99.0 F Pulse Rate 67 89 Respiratory 18 18 Rate Blood Pressure 150/92 148/96 - Physical General Appearance: Yes: Disheveled, Sweating, Anxious HEENTM: Yes: EOMI, Hearing grossly Normal, Normal ENT Inspection, Normocephalic , Normal Voice, KAREN, Pharynx Normal, Tm's normal Respiratory: Yes: Chest Non-Tender, Lungs Clear, Normal Breath Sounds, No Respiratory Distress, No Accessory Muscle Use Neck: Yes: No masses,lesions,Nodules, Trachea in good position Breast: Yes: Breast Exam Deferred Cardiology: Yes: Regular Rhythm, Regular Rate Abdominal: Yes: Normal Bowel Sounds, Non Tender, Soft, Protuberent Genitourinary: Yes: Within Normal Limits Back: Yes: Normal Inspection Musculoskeletal: Yes: full range of Motion, Gait Steady, Pelvis Stable, Back pain Extremities: Yes: Normal Capillary Refill, Normal Inspection, Normal Range of Motion, Non-Tender Neurological: Yes: mica layer II-XII NML intact, Fully Oriented, Alert, Motor Strength 5/5, Depressed Affect Integumentary: Yes: Normal Color, Warm, Moist, Track Mccullough Lymphatic: Yes: Within Normal Limits - Diagnostic (1) Cocaine dependence Current Visit: Yes Status: Acute Qualifiers: Substance use status: uncomplicated Qualified Code(s): F14.20 - Cocaine dependence, uncomplicated (2) Insomnia Current Visit: Yes Status: Acute Qualifiers: Insomnia type: unspecified Qualified Code(s): G47.00 - Insomnia, unspecified (3) Opioid dependence with withdrawal Current Visit: Yes Status: Acute (4) Cocaine dependence, uncomplicated Current Visit: Yes Status: Chronic (5) Nicotine dependence Current Visit: Yes Status: Chronic Qualifiers: Nicotine product type: cigarettes Substance use status: uncomplicated Qualified Code(s): F17.210 - Nicotine dependence, cigarettes, uncomplicated (6) Nausea and vomiting Current Visit: Yes Status: Acute Qualifiers: Vomiting Intractability: unspecified Cleared for Admission [facility] - Detox or Rehab [facility] Level of Care: Medically Managed Detox Regimen/Protocol: Methadone [facility] Breath Alcohol Content Breath Alcohol Content: 0 Urine Pregancy Test - Result Urine Test Results: Negative- NO Line Present Urine Drug Screen - Results Drug Screen Negative: No Urine Drug Screen Results: REILLY-Cocaine, OPI-Opiates
[2018-04-16] MEDS ORDERED: MAGNESIUM HYDROX 2400MG/30ML ORAL SUSPENSION 30 ML CUP PO PRN (19:41)
[2018-04-16] MEDS ORDERED: MAGNESIUM CITRATE 300 ML BOTTLE PO PRN (19:41)
[2018-04-16] MEDS ORDERED: MAG HYDROX/AL HYDROX/SIMETH 30 ML UNIT-DOSE CUP PO PRN (19:41)
[2018-04-16] MEDS ORDERED: P-EPHED 60MG/TRIPROLIDI 2.5MG TABLET PO PRN (19:41)
[2018-04-16] MEDS ORDERED: NICOTINE POLACRILEX 2 MG GUM BC PRN (19:41)
[2018-04-16] MEDS ORDERED: ACETAMINOPHEN 325 MG TABLET (FP) PO PRN (19:41)
[2018-04-16] MEDS ORDERED: MENTHOL/PHENOL 1 EACH UD MM PRN (19:41)
[2018-04-16] MEDS ORDERED: LOPERAMIDE HCL 2 MG CAPSULE PO PRN (19:41)
[2018-04-16] MEDS ORDERED: ONDANSETRON *ODT* 4 MG TABLET SL PRN (19:43)
[2018-04-16] MEDS ORDERED: METHADONE HCL 10 MG TABLET (FOR DETOX USE ONLY) PO ONE ×2 (20:00→23:00)
[2018-04-16] MEDS: diazePAM 5 MG TABLET PO PRN (21:03)
[2018-04-16] MEDS: THIAMINE HCL 100 MG TABLET (FP) PO SCH (23:02)
[2018-04-17] MEDS: diazePAM 5 MG TABLET PO PRN ×5 (01:20→19:22)
--- NOTE | 2018-04-17 09:58 | PN ---
[facility]HS COWS - Scale Resting Pulse: 0= [place] 80 or Below Sweatin= Chills/Flushing Restless Observation: 3= Extraneous Movement Pupil Size: 1= Pupils >than Normal Bone or Joint Aches: 2= Severe Diffuse Aches Runny Nose/ Eye Tearin= Runny Nose/Eyes GI Upset > 30mins: 2= Nausea/Diarrhea Tremor Observation of Outstretched Hands: 2= Slight Tremor Visible Yawning Observation: 1= 1-2x During Session Anxiety or Irritability: 2=Irritable/Anxious Goose Flesh Skin: 0=Smooth Skin COWS Score: 16 S Progress Note (SOAP) Subjective: alert,irritable,anxious,interrupted sleep,tremor,pain in the body and back Objective: 04/17/18 09:55 Vital Signs Temperature 97.1 F L 04/17/18 09:47 Pulse Rate 76 04/17/18 09:47 Respiratory Rate 18 04/17/18 09:47 Blood Pressure 99/56 04/17/18 09:47 O2 Sat by Pulse Oximetry (%) ekg nsr,normal ekg qt/qtc 358/428 labs pending Assessment: 04/17/18 09:57 withdrawal symptom Plan: continue detox
[2018-04-17] MEDS ORDERED: METHADONE HCL 10 MG TABLET (FOR DETOX USE ONLY) PO ONE (10:00)
[2018-04-17 10:05] LABS: ALBUMIN 3.3 g/dl (3.4-5.0); ANION GAP 5 (8-16); BLOOD UREA NITROGEN 13 mg/dL (7-18); CHLORIDE 103 mmol/L (98-107); CO2 30 mmol/L (21-32); POTASSIUM 4.5 mmol/L (3.5-5.1); SODIUM 138 mmol/L (136-145)
--- NOTE | 2018-04-17 10:08 | EKG ---
Test Reason : Blood Pressure : / mmHG Vent. Rate : 086 BPM Atrial Rate : 086 BPM P-R Int : 132 ms QRS Dur : 084 ms QT Int : 358 ms P-R-T Axes : 070 020 044 degrees QTc Int : 428 ms NORMAL SINUS RHYTHM NORMAL ECG WHEN COMPARED WITH ECG OF 21-JAN-2018 18:02, VENT. RATE HAS INCREASED BY 36 BPM Confirmed by EVANGELINA SOSA MD ([id number]) on 04/17/2018 10:08:06 AM Referred By: Confirmed By:EVANGELINA SOSA MD
[2018-04-17 10:19] LABS: HEMATOCRIT 36.8 % (32.4-45.2); HEMOGLOBIN 12.2 GM/dL (10.7-15.3); MCH 29.8 pg (25.7-33.7); MCHC 33.2 g/dl (32.0-36.0); MEAN CELL VOLUME 89.7 fl (80-96); MEAN PLT VOLUME 10.9 fl (7.5-11.1); PLATELET COUNT 184 K/MM3 (134-434); RBC 4.11 M/mm3 (3.60-5.2); RDW 15.7 % (11.6-15.6); WHITE BLOOD COUNT 5.4 K/mm3 (4.0-10.0)
[2018-04-17] MEDS: PRENATAL VITAMINS W/ FOLIC ACID TABLET (FP) PO SCH (10:28)
[2018-04-17] MEDS: NICOTINE 14 MG/24 HOURS TOPICAL PATCH TD SCH (10:29)
[2018-04-17 10:31] LABS: ALK PHOS 123 U/L (45-117); BILIRUBIN,TOTAL 0.1 mg/dL (0.2-1.0); CREATININE 0.8 mg/dL (0.55-1.02); GLUCOSE,RANDOM 83 mg/dL (74-106); SGOT/AST 18 U/L (15-37); SGPT/ALT 20 U/L (12-78); TOT PROT 6.4 g/dl (6.4-8.2)
[2018-04-17] MEDS: guaiFENesin/D-METHORPHAN HB 10 ML UNIT-DOSE CUPS PO PRN (14:20)
--- NOTE | 2018-04-17 16:00 | CONSULT ---
[facility] Psychiatric Consult - Data Date of interview: 04/17/18 Admission source: [facility] Identifying data: Patient is a 53 year old single female, mother of eleven, unemployed, domiciled, and supported by food stamps. This is one of multiple admissions for patient. Pt. admitted to for opiate and cocaine dependence. Substance Abuse History: - Smoking Cessation. Smoking history: Current every day smoker. Have you smoked in the past 12 months: Yes. Aproximately how many cigarettes per day: 10. Cigars Per Day: 0. Hx Chewing Tobacco Use: No. Initiated information on smoking cessation: Yes. 'Breaking Loose' booklet given : 04/16/18. - Substance & Tx. History. Hx Alcohol Use: Yes. Hx Substance Use : Yes. Substance Use Type: Cocaine, Heroin. Hx Substance Use Treatment: Yes. - Substances Abused. Heroin. Route: Inhalation. Frequency: Daily. Amount used: 8 bags. Age of first use: 51. Date of Last Use: 04/15/18. Crack. Route: Smoking. Frequency: 3-6 times per week. Amount used: $70. Age of first use: 27. Date of Last Use: 04/15/18 Medical History: HIV Psychiatric History: Patient denies h/o psychiatric hospitalization, outpatient care, and suicide attempt. Pt. reports poor sleep. Physical/Sexual Abuse/Trauma History: Denies. Mental Status Exam - Mental Status Exam Alert and Oriented to: Time, Place, Person Cognitive Function: Good Patient Appearance: Well Groomed Mood: Hopeful Affect: Mood Congruent Patient Behavior: Appropriate, Cooperative Speech Pattern: Clear, Appropriate Voice Loudness: Normal Thought Process: Intact, Goal Oriented Thought Disorder: Not Present Hallucinations: Denies Suicidal Ideation: Denies Homicidal Ideation: Denies Insight/Judgement: Poor Sleep: Poorly Appetite: Fair Muscle strength/Tone: Normal Gait/Station: Normal Psychiatric Findings - Problem List ([place] 1, 2,3) (1) Cocaine dependence Current Visit: Yes Status: Acute Qualifiers: Substance use status: uncomplicated Qualified Code(s): F14.20 - Cocaine dependence, uncomplicated (2) Opioid dependence with withdrawal Current Visit: Yes Status: Acute (3) Nicotine dependence Current Visit: Yes Status: Chronic Qualifiers: Nicotine product type: cigarettes Substance use status: uncomplicated Qualified Code(s): F17.210 - Nicotine dependence, cigarettes, uncomplicated (4) Substance-induced sleep disorder Current Visit: Yes Status: Acute - Initial Treatment Plan Initial Treatment Plan: Psychoeducation provided. Detoxification in progress. Belsomra 10mg qhs prn ordered. Pt. reports favorable effect from previously accepting Belsomra. Benefits and side effects discussed. Verbal consent given.
[2018-04-17] MEDS: THIAMINE HCL 100 MG TABLET (FP) PO SCH (22:27)
[2018-04-17] MEDS: SUVOREXANT 10 MG TABLET PO PRN (22:27)
[2018-04-18] MEDS: diazePAM 5 MG TABLET PO PRN ×5 (00:41→22:15)
[2018-04-18] MEDS: guaiFENesin/D-METHORPHAN HB 10 ML UNIT-DOSE CUPS PO PRN ×4 (00:41→22:13)
[2018-04-18] MEDS ORDERED: METHADONE HCL 5 MG TABLET (FOR DETOX USE ONLY) PO ONE (10:00)
[2018-04-18] MEDS: NICOTINE 14 MG/24 HOURS TOPICAL PATCH TD SCH (10:10)
[2018-04-18] MEDS: PRENATAL VITAMINS W/ FOLIC ACID TABLET (FP) PO SCH (10:10)
--- NOTE | 2018-04-18 11:43 | PN ---
BHS COWS - Scale Resting Pulse: 0= [place] 80 or Below Sweatin= Chills/Flushing Restless Observation: 1= Difficult to Sit Still Pupil Size: 1= Pupils >than Normal Bone or Joint Aches: 2= Severe Diffuse Aches Runny Nose/ Eye Tearin= Nasal Congestion GI Upset > 30mins: 2= Nausea/Diarrhea Tremor Observation of Outstretched Hands: 2= Slight Tremor Visible Yawning Observation: 2= >3x During Session Anxiety or Irritability: 2=Irritable/Anxious Goose Flesh Skin: 0=Smooth Skin COWS Score: 14 BHS Progress Note (SOAP) Subjective: muscle cramp sweat tremor restlessness trouble sleep at night Objective: 04/18/18 11:45 Vital Signs Temperature 97.3 F L 04/18/18 10:50 Pulse Rate 70 04/18/18 10:50 Respiratory Rate 18 04/18/18 10:50 Blood Pressure 92/53 04/18/18 10:50 O2 Sat by Pulse Oximetry (%) Laboratory Last Values WBC 5.4 K/mm3 (4.0-10.0) 04/17/18 07:00 RBC 4.11 M/mm3 (3.60-5.2) 04/17/18 07:00 Hgb 12.2 GM/dL (10.7-15.3) 04/17/18 07:00 Hct 36.8 % (32.4-45.2) 04/17/18 07:00 MCV 89.7 fl (80-96) 04/17/18 07:00 MCH 29.8 pg (25.7-33.7) 04/17/18 07:00 MCHC 33.2 g/dl (32.0-36.0) 04/17/18 07:00 RDW 15.7 % (11.6-15.6) H 04/17/18 07:00 Plt Count 184 K/MM3 (134-434) D 04/17/18 07:00 MPV 10.9 fl (7.5-11.1) 04/17/18 07:00 Sodium 138 mmol/L (136-145) 04/17/18 07:00 Potassium 4.5 mmol/L (3.5-5.1) 04/17/18 07:00 Chloride 103 mmol/L (98-107) 04/17/18 07:00 Carbon Dioxide 30 mmol/L (21-32) 04/17/18 07:00 Anion Gap 5 (8-16) L 04/17/18 07:00 BUN 13 mg/dL (7-18) 04/17/18 07:00 Creatinine 0.8 mg/dL (0.55-1.02) 04/17/18 07:00 Creat Clearance w eGFR > 60 (>60) 04/17/18 07:00 Random Glucose 83 mg/dL (74-106) 04/17/18 07:00 Calcium 9.0 mg/dL (8.5-10.1) 04/17/18 07:00 Total Bilirubin 0.1 mg/dL (0.2-1.0) L 04/17/18 07:00 AST 18 U/L (15-37) 04/17/18 07:00 ALT 20 U/L (12-78) 04/17/18 07:00 Alkaline Phosphatase 123 U/L (45-117) H 04/17/18 07:00 Total Protein 6.4 g/dl (6.4-8.2) 04/17/18 07:00 Albumin 3.3 g/dl (3.4-5.0) L 04/17/18 07:00 RPR Titer Nonreactive (NONREACTIVE) 04/17/18 07:00 HIV 1&2 Antibody Screen Negative 04/17/18 07:00 HIV P24 Antigen Negative 04/17/18 07:00 lab noted Assessment: 04/18/18 11:46 withdrawal sx Plan: continue detox
[2018-04-18 15:04] LABS: URINE APPEARANCE CLOUDY; URINE BILIRUBIN NEGATIVE (<2.0 mg/dL); URINE COLOR LTYELLOW; URINE GLUCOSE (UA) NEGATIVE (NEGATIVE); URINE KETONE NEGATIVE (NEGATIVE); URINE LEUK ESTERASE NEGATIVE (NEGATIVE); URINE NITRITE NEGATIVE (NEGATIVE); URINE PROTEIN NEGATIVE (NEGATIVE); URINE UROBILINOGEN NEGATIVE mg/dL (0.2-1.0)
[2018-04-18] MEDS: hydrOXYzine PAMOATE 50 MG CAPSULE (FP) PO PRN (19:02)
[2018-04-18] MEDS: SUVOREXANT 10 MG TABLET PO PRN (22:12)
[2018-04-18] MEDS: THIAMINE HCL 100 MG TABLET (FP) PO SCH (22:12)
[2018-04-19] MEDS: guaiFENesin/D-METHORPHAN HB 10 ML UNIT-DOSE CUPS PO PRN ×3 (05:28→18:53)
[2018-04-19] MEDS: diazePAM 5 MG TABLET PO PRN ×4 (05:28→18:53)
[2018-04-19] MEDS ORDERED: METHADONE HCL 5 MG TABLET (FOR DETOX USE ONLY) PO ONE (10:00)
[2018-04-19] MEDS: PRENATAL VITAMINS W/ FOLIC ACID TABLET (FP) PO SCH (10:27)
[2018-04-19] MEDS: NICOTINE 14 MG/24 HOURS TOPICAL PATCH TD SCH (10:29)
--- NOTE | 2018-04-19 14:12 | PN ---
BHS Progress Note (SOAP) Subjective: pt states she is doing well, hoping to go to rehab Objective: 04/19/18 14:10 Vital Signs - 24 hr 04/18/18 04/18/18 04/18/18 14:41 17:43 22:17 Temperature 97.9 F 97.3 F L 97.7 F Pulse Rate 74 72 71 Respiratory 18 18 18 Rate Blood Pressure 111/75 115/88 120/75 04/19/18 04/19/18 04/19/18 00:30 03:30 06:03 Temperature 97.3 F L Pulse Rate 71 Respiratory 18 16 18 Rate Blood Pressure 132/73 04/19/18 04/19/18 09:38 13:47 Temperature 97.7 F 97.7 F Pulse Rate 81 74 Respiratory 20 20 Rate Blood Pressure 112/75 118/76 Laboratory Tests 04/17/18 04/17/18 04/17/18 07:00 07:00 07:00 WBC 5.4 RBC 4.11 Hgb 12.2 Hct 36.8 MCV 89.7 MCH 29.8 MCHC 33.2 RDW 15.7 H Plt Count 184 D MPV 10.9 Sodium 138 Potassium 4.5 Chloride 103 Carbon Dioxide 30 Anion Gap 5 L BUN 13 Creatinine 0.8 Creat Clearance w eGFR > 60 Random Glucose 83 Calcium 9.0 Total Bilirubin 0.1 L AST 18 ALT 20 Alkaline Phosphatase 123 H Total Protein 6.4 Albumin 3.3 L Urine Color Urine Appearance Urine pH Ur Specific [place] Urine Protein Urine Glucose (UA) Urine Ketones Urine Blood Urine Nitrite Urine Bilirubin Urine Urobilinogen Ur Leukocyte Esterase RPR Titer HIV 1&2 Antibody Screen Negative HIV P24 Antigen Negative 04/17/18 04/18/18 07:00 10:00 WBC RBC Hgb Hct MCV MCH MCHC RDW Plt Count MPV Sodium Potassium Chloride Carbon Dioxide Anion Gap BUN Creatinine Creat Clearance w eGFR Random Glucose Calcium Total Bilirubin AST ALT Alkaline Phosphatase Total Protein Albumin Urine Color Ltyellow Urine Appearance Cloudy Urine pH 6.0 Ur Specific [place] 1.012 Urine Protein Negative Urine Glucose (UA) Negative Urine Ketones Negative Urine Blood Negative Urine Nitrite Negative Urine Bilirubin Negative Urine Urobilinogen Negative Ur Leukocyte Esterase Negative RPR Titer Nonreactive HIV 1&2 Antibody Screen HIV P24 Antigen nl Vs grossly nl PE Assessment: 04/19/18 14:11 53 yo female with hx of coaince, heroin and nicotine dependnece is here seeking detox with methadone Plan: jo detox, pt would like to go to rehab
[2018-04-19] MEDS: IBUPROFEN 400 MG TABLET (FP) PO PRN (18:51)
[2018-04-19] MEDS: THIAMINE HCL 100 MG TABLET (FP) PO SCH (22:12)
[2018-04-19] MEDS: SUVOREXANT 10 MG TABLET PO PRN (22:12)
[2018-04-19] MEDS: MELATONIN 5 MG TABLETS PO PRN (22:12)
[2018-04-20] MEDS: hydrOXYzine PAMOATE 50 MG CAPSULE (FP) PO PRN ×3 (05:14→19:08)
[2018-04-20] MEDS: guaiFENesin/D-METHORPHAN HB 10 ML UNIT-DOSE CUPS PO PRN ×3 (05:14→18:15)
[2018-04-20] MEDS ORDERED: METHADONE HCL 10 MG TABLET (FOR DETOX USE ONLY) PO ONE (10:00)
[2018-04-20] MEDS: PRENATAL VITAMINS W/ FOLIC ACID TABLET (FP) PO SCH (10:24)
[2018-04-20] MEDS: NICOTINE 14 MG/24 HOURS TOPICAL PATCH TD SCH (10:24)
--- NOTE | 2018-04-20 13:25 | PN ---
BHS Progress Note (SOAP) Subjective: Sleep interruption, irritability Objective: 04/20/18 13:24 Vital Signs - 8 hr 04/20/18 04/20/18 06:00 10:30 Temperature 97.9 F 97.9 F Pulse Rate 92 H 79 Respiratory 18 18 Rate Blood Pressure 102/61 110/82 Laboratory Last Values WBC 5.4 K/mm3 (4.0-10.0) 04/17/18 07:00 RBC 4.11 M/mm3 (3.60-5.2) 04/17/18 07:00 Hgb 12.2 GM/dL (10.7-15.3) 04/17/18 07:00 Hct 36.8 % (32.4-45.2) 04/17/18 07:00 MCV 89.7 fl (80-96) 04/17/18 07:00 MCH 29.8 pg (25.7-33.7) 04/17/18 07:00 MCHC 33.2 g/dl (32.0-36.0) 04/17/18 07:00 RDW 15.7 % (11.6-15.6) H 04/17/18 07:00 Plt Count 184 K/MM3 (134-434) D 04/17/18 07:00 MPV 10.9 fl (7.5-11.1) 04/17/18 07:00 Sodium 138 mmol/L (136-145) 04/17/18 07:00 Potassium 4.5 mmol/L (3.5-5.1) 04/17/18 07:00 Chloride 103 mmol/L (98-107) 04/17/18 07:00 Carbon Dioxide 30 mmol/L (21-32) 04/17/18 07:00 Anion Gap 5 (8-16) L 04/17/18 07:00 BUN 13 mg/dL (7-18) 04/17/18 07:00 Creatinine 0.8 mg/dL (0.55-1.02) 04/17/18 07:00 Creat Clearance w eGFR > 60 (>60) 04/17/18 07:00 Random Glucose 83 mg/dL (74-106) 04/17/18 07:00 Calcium 9.0 mg/dL (8.5-10.1) 04/17/18 07:00 Total Bilirubin 0.1 mg/dL (0.2-1.0) L 04/17/18 07:00 AST 18 U/L (15-37) 04/17/18 07:00 ALT 20 U/L (12-78) 04/17/18 07:00 Alkaline Phosphatase 123 U/L (45-117) H 04/17/18 07:00 Total Protein 6.4 g/dl (6.4-8.2) 04/17/18 07:00 Albumin 3.3 g/dl (3.4-5.0) L 04/17/18 07:00 Urine Color Ltyellow 04/18/18 10:00 Urine Appearance Cloudy 04/18/18 10:00 Urine pH 6.0 (5.0-8.0) 04/18/18 10:00 Ur Specific [place] 1.012 (1.001-1.035) 04/18/18 10:00 Urine Protein Negative (NEGATIVE) 04/18/18 10:00 Urine Glucose (UA) Negative (NEGATIVE) 04/18/18 10:00 Urine Ketones Negative (NEGATIVE) 04/18/18 10:00 Urine Blood Negative (NEGATIVE) 04/18/18 10:00 Urine Nitrite Negative (NEGATIVE) 04/18/18 10:00 Urine Bilirubin Negative (<2.0 mg/dL) 04/18/18 10:00 Urine Urobilinogen Negative mg/dL (0.2-1.0) 04/18/18 10:00 Ur Leukocyte Esterase Negative (NEGATIVE) 04/18/18 10:00 RPR Titer Nonreactive (NONREACTIVE) 04/17/18 07:00 HIV 1&2 Antibody Screen Negative 04/17/18 07:00 HIV P24 Antigen Negative 04/17/18 07:00 Labs noted Assessment: 04/20/18 13:24 Withdrawal sx Plan: Continue detox
[2018-04-20] MEDS: IBUPROFEN 400 MG TABLET (FP) PO PRN ×2 (14:52→22:25)
--- NOTE | 2018-04-20 18:30 | PN ---
[facility] Progress Note Note: As per nureing report patient need Belsomra 10mg po qhs to renew Medicationlist reviewed, Belsomra 1omg po qhs prn for insomnia restarted
[2018-04-20] MEDS: THIAMINE HCL 100 MG TABLET (FP) PO SCH (22:24)
[2018-04-20] MEDS: SUVOREXANT 10 MG TABLET PO PRN (22:26)
[2018-04-20] MEDS: MELATONIN 5 MG TABLETS PO PRN (22:27)
[2018-04-20 22:58] VITALS: PULSE 69
[2018-04-21] MEDS: METHADONE HCL 5 MG TABLET (FOR DETOX USE ONLY) PO ONE (05:45)
[2018-04-21] MEDS: guaiFENesin/D-METHORPHAN HB 10 ML UNIT-DOSE CUPS PO PRN (05:45)
[2018-04-21 06:38] VITALS: BP 109/56; TEMP 97.9
--- NOTE | 2018-04-21 08:42 | DS ---
[facility] Detox Discharge Summary Admission Date: 04/16/18 Discharge Date: 04/21/18 - History Present History: Opioid Dependence Additional Comments: 53 years old female admitted on 04/16/18 for opiate withdrawal sx completed opiate detox regimen tolerated well denies opiate withdrawal sx alert oriented x 3 no acute distress aftercare [facility] - Physical Exam Results Vital Signs: Vital Signs Temperature 97.9 F 04/21/18 06:00 Pulse Rate 69 04/21/18 06:00 Respiratory Rate 18 04/21/18 06:00 Blood Pressure 109/56 04/21/18 06:00 O2 Sat by Pulse Oximetry (%) Pertinent Admission Physical Exam Findings: opiate withdrawal sx Vital Signs Temperature 97.9 F 04/21/18 06:00 Pulse Rate 69 04/21/18 06:00 Respiratory Rate 18 04/21/18 06:00 Blood Pressure 109/56 04/21/18 06:00 O2 Sat by Pulse Oximetry (%) Laboratory Last Values WBC 5.4 K/mm3 (4.0-10.0) 04/17/18 07:00 RBC 4.11 M/mm3 (3.60-5.2) 04/17/18 07:00 Hgb 12.2 GM/dL (10.7-15.3) 04/17/18 07:00 Hct 36.8 % (32.4-45.2) 04/17/18 07:00 MCV 89.7 fl (80-96) 04/17/18 07:00 MCH 29.8 pg (25.7-33.7) 04/17/18 07:00 MCHC 33.2 g/dl (32.0-36.0) 04/17/18 07:00 RDW 15.7 % (11.6-15.6) H 04/17/18 07:00 Plt Count 184 K/MM3 (134-434) D 04/17/18 07:00 MPV 10.9 fl (7.5-11.1) 04/17/18 07:00 Sodium 138 mmol/L (136-145) 04/17/18 07:00 Potassium 4.5 mmol/L (3.5-5.1) 04/17/18 07:00 Chloride 103 mmol/L (98-107) 04/17/18 07:00 Carbon Dioxide 30 mmol/L (21-32) 04/17/18 07:00 Anion Gap 5 (8-16) L 04/17/18 07:00 BUN 13 mg/dL (7-18) 04/17/18 07:00 Creatinine 0.8 mg/dL (0.55-1.02) 04/17/18 07:00 Creat Clearance w eGFR > 60 (>60) 04/17/18 07:00 Random Glucose 83 mg/dL (74-106) 04/17/18 07:00 Calcium 9.0 mg/dL (8.5-10.1) 04/17/18 07:00 Total Bilirubin 0.1 mg/dL (0.2-1.0) L 04/17/18 07:00 AST 18 U/L (15-37) 04/17/18 07:00 ALT 20 U/L (12-78) 04/17/18 07:00 Alkaline Phosphatase 123 U/L (45-117) H 04/17/18 07:00 Total Protein 6.4 g/dl (6.4-8.2) 04/17/18 07:00 Albumin 3.3 g/dl (3.4-5.0) L 04/17/18 07:00 Urine Color Ltyellow 04/18/18 10:00 Urine Appearance Cloudy 04/18/18 10:00 Urine pH 6.0 (5.0-8.0) 04/18/18 10:00 Ur Specific [place] 1.012 (1.001-1.035) 04/18/18 10:00 Urine Protein Negative (NEGATIVE) 04/18/18 10:00 Urine Glucose (UA) Negative (NEGATIVE) 04/18/18 10:00 Urine Ketones Negative (NEGATIVE) 04/18/18 10:00 Urine Blood Negative (NEGATIVE) 04/18/18 10:00 Urine Nitrite Negative (NEGATIVE) 04/18/18 10:00 Urine Bilirubin Negative (<2.0 mg/dL) 04/18/18 10:00 Urine Urobilinogen Negative mg/dL (0.2-1.0) 04/18/18 10:00 Ur Leukocyte Esterase Negative (NEGATIVE) 04/18/18 10:00 RPR Titer Nonreactive (NONREACTIVE) 04/17/18 07:00 HIV 1&2 Antibody Screen Negative 04/17/18 07:00 HIV P24 Antigen Negative 04/17/18 07:00 lab noted - Treatment Hospital Course: Detox Protocol Followed, Detoxed Safely, Responded well, Discharged Condition Good, Rehab Referral Accepted Patient has Accepted a Rehab Referral to: [facility] - Medication Discharge Medications: Ambulatory Orders NK [No Known Home Medication] 04/16/18 - Diagnosis (1) Opioid dependence with withdrawal Current Visit: Yes Status: Acute (2) Nicotine dependence Current Visit: Yes Status: Acute Qualifiers: Nicotine product type: cigarettes Substance use status: in withdrawal Qualified Code(s): F17.213 - Nicotine dependence, cigarettes, with withdrawal (3) Depression (emotion) Current Visit: Yes Status: Suspected Qualifiers: Depression Type: dysthymia Qualified Code(s): F34.1 - Dysthymic disorder - AMA Did Patient Leave Against Medical Advice: No
[2018-04-21] MEDS: PRENATAL VITAMINS W/ FOLIC ACID TABLET (FP) PO SCH (10:28)
[2018-04-21] MEDS: IBUPROFEN 400 MG TABLET (FP) PO PRN (10:28)
[2018-04-21] MEDS: NICOTINE 14 MG/24 HOURS TOPICAL PATCH TD SCH (10:28)
== END 2018-04-21 12:13 | disposition other institution (70) | DRG 773 ==
LOC: YASAS 13:02 → Y6N 17:47
PROVIDERS: ADMIT Surgery; ATTEND Surgery
PROC: HZ2ZZZZ Detoxification Services for Substance Abuse Treatment (ICD-10-PCS; principal; 2018-04-16)
DX: F11.23 Opioid dependence with withdrawal (principal); F14.20 Cocaine dependence, uncomplicated; F17.213 Nicotine dependence, cigarettes, with withdrawal; F34.1 Dysthymic disorder; F19.24 Other psychoactive substance dependence with psychoactive substance-induced mood disorder; F19.282 Other psychoactive substance dependence with psychoactive substance-induced sleep disorder; G47.00 Insomnia, unspecified; E86.0 Dehydration; R11.2 Nausea with vomiting, unspecified; Z21 Asymptomatic human immunodeficiency virus [HIV] infection status
CPT/HCPCS: 36415; 80053; 81003; 85027; 86593; 87389; 93005; 93010

== ENCOUNTER 2019-05-09 11:03 | Inpatient (IN) | payer OTHER ==
[2019-05-09 13:08] VITALS: BMI 23.5
--- NOTE | 2019-05-09 14:51 | HP ---
Addendum entered and electronically signed by Parish Brown, RESIDENT 05/09/19 15: 09: Urine showed Suboxone, but patient said she took it one time from a friend. She is not on a Suboxone program. Original Note: COWS - Scale Resting Pulse: 1= [place] 81-100 Sweatin= No chills or Flushing Restless Observation: 1= Difficult to Sit Still Pupil Size: 1= Pupils >than Normal Bone or Joint Aches: 2= Severe Diffuse Aches Runny Nose/ Eye Tearin= Runny Nose/Eyes GI Upset > 30mins: 5=Frequent Vomit/Diarrhea Tremor Observation: 0= None Yawning Observation: 0= None Anxiety or Irritability: 1=Feels Anxious/Irritable Goose Flesh Skin: 0=Smooth Skin COWS Score: 13 CIWA Score - Admission Criteria OASAS Guidelines: Admission for Medically Managed Detox: Requires at least one of the followin. CIWA greater than 12 2. Seizures within the past 24 hours 3. Delirium tremens within the past 24 hours 4. Hallucinations within the past 24 hours 5. Acute intervention needed for co occurring medical disorder 6. Acute intervention needed for co occurring psychiatric disorder 7. Severe withdrawal that cannot be handled at a lower level of care (continued vomiting, continued diarrhea, abnormal vital signs) requiring intravenous medication and/or fluids 8. Admission ROS [facility] Chief Complaint: heroin detox Allergies/Adverse Reactions: Allergies Allergy/AdvReac Type Severity Reaction Status Date / Time No Known Allergies Allergy Verified 05/09/19 12:55 History of Present Illness: Patient is a 54 yo F with no known PMHx (does not see doctor), presenting for heroin detox. Denies IV use. She says she wants to start the methadone program after detox. Patient has been using heroin for 3 years. Smokes crack/cocaine. uses 40 dollars a day. 6-7 bags a day. Used 1 bag this morning. She decided she wants to turn her life around. Says she never Od's. Denies seizures. Lost 15 pounds in the last month. She was on a suboxone program last year for a few months @ [facility]. Says it was too far from where she lived. Was here for rehab 04/21-04/26/18 for rehab. Drinks alcohol occasionally. Smokes half PPD cigarettes. Lives in an Apartment with the father of her kids. Exam Limitations: No Limitations - Ebola screening Have you traveled outside of the country in the last 21 days: No (N) Have you had contact with anyone from an Ebola affected area: No Do you have a fever: No Patient History - Patient Medical History Hx Anemia: No Hx Asthma: No Hx Chronic Obstructive Pulmonary Disease (COPD): No Hx Cancer: No Hx Cardiac Disorders: No Hx Congestive Heart Failure: No Hx Hypertension: No Hx Hypercholesterolemia: No Hx Pacemaker: No HX Cerebrovascular Accident: No Hx Seizures: No Hx Dementia: No Hx Diabetes: No Hx Gastrointestinal Disorders: No Hx Liver Disease: No Hx Genitourinary Disorders: No Hx Sexually Transmitted Disorders: No Hx Renal Disease (ESRD): No Hx Thyroid Disease: No Hx Human Immunodeficiency Virus (HIV): Yes (Last tested Oct 2017) Hx Hepatitis C: No Hx Depression: No Hx Suicide Attempt: No Hx Bipolar Disorder: No Hx Schizophrenia: No - Patient Surgical History Past Surgical History: No Hx Neurologic Surgery: No Hx Cataract Extraction: No Hx Cardiac Surgery: No Hx Lung Surgery: No Hx Breast Surgery: No Hx Breast Biopsy: No Hx Abdominal Surgery: No Hx Appendectomy: No Hx Cholecystectomy: No Hx Genitourinary Surgery: No Hx Section: No Hx Orthopedic Surgery: No Hx Hysterectomy: No Anesthesia Reaction: No - PPD History Date: 05/31/17 Results: 0mm - Reproductive History Last Menstrual Period: 10/29/17 - Smoking Cessation Smoking history: Current every day smoker Have you smoked in the past 12 months: Yes Aproximately how many cigarettes per day: 10 Cigars Per Day: 0 Hx Chewing Tobacco Use: No Initiated information on smoking cessation: Yes 'Breaking Loose' booklet given: 05/09/19 - Substances abused Heroin Substance route: Inhalation Frequency: Daily Amount used: 7 bags Age of first use: 52 Date of last use: 05/09/19 Family Disease History - Family Disease History Family Disease History: Other: Father (NO CONTACT), Mother ( LIVER ) Admission Physical Exam S - Vital Signs Vital Signs: Vital Signs - 24 hr 05/09/19 12:56 Temperature 98.7 F Pulse Rate 74 Respiratory 16 Rate Blood Pressure 105/70 - Physical General Appearance: Yes: Within Normal Limits HEENTM: Yes: Within Normal Limits Respiratory: Yes: Lungs Clear, No Respiratory Distress, No Accessory Muscle Use Neck: Yes: Supple Cardiology: Yes: Regular Rate, S1, S2 Abdominal: Yes: Within Normal Limits, Non Tender, Soft Genitourinary: Yes: Within Normal Limits Extremities: Yes: Normal Capillary Refill - Diagnostic (1) Heroin abuse Current Visit: Yes Status: Acute (2) Crack cocaine use Current Visit: No Status: Chronic (3) Nicotine dependence Current Visit: No Status: Chronic Qualifiers: Nicotine product type: cigarettes Substance use status: in withdrawal Qualified Code(s): F17.213 - Nicotine dependence, cigarettes, with withdrawal Cleared for Admission [facility] - Detox or Rehab [facility] Level of Care: Medically Managed Breathalyzer - Breathalyzer Breathalyzer: 0 Urine Drug Screen - Test Device Lot number: [id number] Expiration date: 02/21/21 - Control Is test valid?: Yes - Results Drug screen NEGATIVE: No Urine drug screen results: REILLY-Cocaine, FEN-Fentanyl, MOP-Opiates, BUP-Suboxone Inpatient Rehab Admission - Rehab Decision to Admit Inpatient rehab admission?: No
[2019-05-09] MEDS ORDERED: MAGNESIUM HYDROX 2400MG/30ML ORAL SUSPENSION 30 ML CUP PO PRN (15:04)
[2019-05-09] MEDS ORDERED: cloNIDine HCL 0.1 MG TABLET PO PRN (15:04)
[2019-05-09] MEDS ORDERED: IBUPROFEN 400 MG TABLET (FP) PO PRN (15:04)
[2019-05-09] MEDS ORDERED: MAGNESIUM CITRATE 300 ML BOTTLE PO PRN (15:04)
[2019-05-09] MEDS ORDERED: BISMUTH SUBSALICYLATE 262 MG/15 ML BTL PO PRN (15:04)
[2019-05-09] MEDS ORDERED: ACETAMINOPHEN 325 MG TABLET (FP) PO PRN ×2 (15:04)
[2019-05-09] MEDS ORDERED: METHOCARBAMOL 500 MG TABLET PO PRN (15:04)
[2019-05-09] MEDS ORDERED: MENTHOL/PHENOL 1 EACH UD MM PRN (15:04)
[2019-05-09] MEDS ORDERED: MAG HYDROX/AL HYDROX/SIMETH 30 ML UNIT-DOSE CUP PO PRN (15:04)
[2019-05-09] MEDS ORDERED: hydrOXYzine PAMOATE 25 MG CAPSULE (FP) PO PRN (15:04)
--- NOTE | 2019-05-09 15:18 | PN ---
Teaching Attending Note Name of Resident: Parish Brown ATTENDING PHYSICIAN STATEMENT I saw and evaluated the patient. I reviewed the resident's note and discussed the case with the resident. I agree with the resident's findings and plan as documented. SUBJECTIVE: this 54 years old female with heroin and cocaine dependence,seeking detox, nicotine dependence OBJECTIVE: withdrawal signs and symptom Vital Signs Temperature 98.7 F 05/09/19 12:56 Pulse Rate 74 05/09/19 12:56 Respiratory Rate 16 05/09/19 12:56 Blood Pressure 105/70 05/09/19 12:56 O2 Sat by Pulse Oximetry (%) ASSESSMENT AND PLAN: this patient need inpatient detox,medically managed,methadone regimen,ur out patient program after detox
[2019-05-09] MEDS ORDERED: METHADONE HCL 10 MG TABLET (FOR DETOX USE ONLY) PO ONE (15:30)
[2019-05-09] MEDS: NICOTINE 21 MG/24 HOURS TOPICAL PATCH TD SCH (18:08)
[2019-05-09] MEDS: diazePAM 5 MG TABLET PO PRN (18:11)
[2019-05-09] MEDS: THIAMINE HCL 100 MG TABLET (FP) PO SCH (22:21)
[2019-05-10] MEDS: diazePAM 5 MG TABLET PO PRN ×4 (03:04→19:43)
[2019-05-10] MEDS ORDERED: METHADONE HCL 5 MG TABLET (FOR DETOX USE ONLY) PO ONE (10:00)
[2019-05-10] MEDS: NICOTINE 21 MG/24 HOURS TOPICAL PATCH TD SCH (10:30)
[2019-05-10] MEDS: PRENATAL VITAMINS W/ FOLIC ACID TABLET (FP) PO SCH (10:31)
[2019-05-10 10:49] LABS: HEMATOCRIT 39.5 % (32.4-45.2); HEMOGLOBIN 13.2 GM/dL (10.7-15.3); MCH 29.4 pg (25.7-33.7); MCHC 33.4 g/dl (32.0-36.0); MEAN CELL VOLUME 88.1 fl (80-96); MEAN PLT VOLUME 10.4 fl (7.5-11.1); PLATELET COUNT 207 K/MM3 (134-434); RBC 4.48 M/mm3 (3.60-5.2); RDW 14.2 % (11.6-15.6); WHITE BLOOD COUNT 4.7 K/mm3 (4.0-10.0)
[2019-05-10 10:54] LABS: ALBUMIN 3.3 g/dl (3.4-5.0); BILIRUBIN,TOTAL 0.2 mg/dL (0.2-1); BLOOD UREA NITROGEN 12.5 mg/dL (7-18); CALCIUM 9.1 mg/dL (8.5-10.1); CREATININE 0.8 mg/dL (0.55-1.3); POTASSIUM 4.1 mmol/L (3.5-5.1); TOT PROT 6.1 g/dl (6.4-8.2)
--- NOTE | 2019-05-10 12:31 | PN ---
S COWS - Scale Resting Pulse: 0= [place] 80 or Below Sweatin= Beads of Sweat on Face Restless Observation: 1= Difficult to Sit Still Pupil Size: 0= Normal to Room Light Bone or Joint Aches: 2= Severe Diffuse Aches Runny Nose/ Eye Tearin= None GI Upset > 30mins: 1= Stomach Cramp Tremor Observation of Outstretched Hands: 0= None Yawning Observation: 1= 1-2x During Session Anxiety or Irritability: 2=Irritable/Anxious Goose Flesh Skin: 0=Smooth Skin COWS Score: 10 S Progress Note (SOAP) Subjective: c/o sweats, anxiety, irritability, and interrupted sleep. Objective: 05/10/19 12:30 Vital Signs 05/10/19 05/10/19 07:42 09:47 Temperature 97.3 F L 97.5 F L Pulse Rate 58 L 69 Respiratory 18 16 Rate Blood Pressure 102/64 118/71 Lab Results WBC 4.7 K/mm3 (4.0-10.0) 05/10/19 07:30 RBC 4.48 M/mm3 (3.60-5.2) 05/10/19 07:30 Hgb 13.2 GM/dL (10.7-15.3) 05/10/19 07:30 Hct 39.5 % (32.4-45.2) 05/10/19 07:30 MCV 88.1 fl (80-96) 05/10/19 07:30 MCHC 33.4 g/dl (32.0-36.0) 05/10/19 07:30 RDW 14.2 % (11.6-15.6) 05/10/19 07:30 Plt Count 207 K/MM3 (134-434) 05/10/19 07:30 Sodium 141 mmol/L (136-145) 05/10/19 07:30 Potassium 4.1 mmol/L (3.5-5.1) 05/10/19 07:30 Chloride 107 mmol/L (98-107) 05/10/19 07:30 Carbon Dioxide 27 mmol/L (21-32) 05/10/19 07:30 Anion Gap 7 MMOL/L (8-16) L 05/10/19 07:30 BUN 12.5 mg/dL (7-18) 05/10/19 07:30 Creatinine 0.8 mg/dL (0.55-1.3) 05/10/19 07:30 Random Glucose 87 mg/dL (74-106) 05/10/19 07:30 Calcium 9.1 mg/dL (8.5-10.1) 05/10/19 07:30 Labs noted. Assessment: 05/10/19 12:30 AOX3, in no acute distress. Full ROM, ambulating in the unit. Withdrawal symptoms. Plan: continue detox.
[2019-05-10] MEDS: THIAMINE HCL 100 MG TABLET (FP) PO SCH (22:34)
[2019-05-10] MEDS: MELATONIN 5 MG TABLETS PO PRN (22:35)
[2019-05-11] MEDS: diazePAM 5 MG TABLET PO PRN ×4 (01:10→20:10)
[2019-05-11] MEDS ORDERED: METHADONE HCL 10 MG TABLET (FOR DETOX USE ONLY) PO ONE (10:00)
[2019-05-11] MEDS: NICOTINE 21 MG/24 HOURS TOPICAL PATCH TD SCH (10:29)
[2019-05-11] MEDS: PRENATAL VITAMINS W/ FOLIC ACID TABLET (FP) PO SCH (10:29)
[2019-05-11] MEDS ORDERED: P-EPHED 60MG/TRIPROLIDI 2.5MG TABLET PO PRN (14:11)
--- NOTE | 2019-05-11 14:11 | PN ---
[facility] COWS - Scale Resting Pulse: 0= [place] 80 or Below Sweatin=Flushed/Facial Moisture Restless Observation: 1= Difficult to Sit Still Pupil Size: 0= Normal to Room Light Bone or Joint Aches: 2= Severe Diffuse Aches Runny Nose/ Eye Tearin= Nasal Congestion GI Upset > 30mins: 0= None Tremor Observation of Outstretched Hands: 1= Tremor [place], Not Seen Yawning Observation: 1= 1-2x During Session Anxiety or Irritability: 1=Feels Anxious/Irritable Goose Flesh Skin: 0=Smooth Skin COWS Score: 9 BHS Progress Note (SOAP) Subjective: nasal congestions sweats agitation Objective: 05/11/19 14:09 Vital Signs Temperature 99.0 F 05/11/19 13:57 Pulse Rate 77 05/11/19 13:57 Respiratory Rate 17 05/11/19 13:57 Blood Pressure 128/73 05/11/19 13:57 O2 Sat by Pulse Oximetry (%) Laboratory Tests 05/09/19 05/10/19 05/10/19 09:10 07:30 07:30 WBC 4.7 RBC 4.48 Hgb 13.2 Hct 39.5 MCV 88.1 MCH 29.4 MCHC 33.4 RDW 14.2 Plt Count 207 MPV 10.4 Sodium 141 Potassium 4.1 Chloride 107 Carbon Dioxide 27 Anion Gap 7 L BUN 12.5 Creatinine 0.8 Est GFR (CKD-EPI)AfAm 98.24 Est GFR (CKD-EPI)NonAf 84.76 Random Glucose 87 Calcium 9.1 Total Bilirubin 0.2 AST 31 ALT 32 Alkaline Phosphatase 106 Total Protein 6.1 L Albumin 3.3 L RPR Titer HIV 1&2 Ag/Ab, 4th Gen Non reactive HIV 1&2 Antibody Screen HIV P24 Antigen 05/10/19 05/10/19 07:30 07:30 WBC RBC Hgb Hct MCV MCH MCHC RDW Plt Count MPV Sodium Potassium Chloride Carbon Dioxide Anion Gap BUN Creatinine Est GFR (CKD-EPI)AfAm Est GFR (CKD-EPI)NonAf Random Glucose Calcium Total Bilirubin AST ALT Alkaline Phosphatase Total Protein Albumin RPR Titer Nonreactive HIV 1&2 Ag/Ab, 4th Gen HIV 1&2 Antibody Screen Cancelled HIV P24 Antigen Cancelled labs noted aaox3 ambulating no acute distress Assessment: 05/11/19 14:10 withdrawal sx Plan: continue detox increase fluids acitifed prn ordered
[2019-05-11] MEDS: MELATONIN 5 MG TABLETS PO PRN (22:42)
[2019-05-11] MEDS: THIAMINE HCL 100 MG TABLET (FP) PO SCH (22:43)
[2019-05-12] MEDS: diazePAM 5 MG TABLET PO PRN (05:20)
[2019-05-12] MEDS ORDERED: METHADONE HCL 5 MG TABLET (FOR DETOX USE ONLY) PO ONE (06:00)
[2019-05-12 07:48] VITALS: BP 119/96; PULSE 90; TEMP 97
--- NOTE | 2019-05-12 09:30 | DS ---
[facility] Detox Discharge Summary Admission Date: 05/09/19 Discharge Date: 05/12/19 - History Present History: Cocaine Dependence, Opioid Dependence - Physical Exam Results Vital Signs: Vital Signs Temperature 97.0 F L 05/12/19 06:00 Pulse Rate 90 05/12/19 06:00 Respiratory Rate 18 05/12/19 06:00 Blood Pressure 119/96 05/12/19 06:00 O2 Sat by Pulse Oximetry (%) Pertinent Admission Physical Exam Findings: pt arrived in withdrawals Laboratory Tests 05/09/19 05/10/19 05/10/19 09:10 07:30 07:30 WBC 4.7 RBC 4.48 Hgb 13.2 Hct 39.5 MCV 88.1 MCH 29.4 MCHC 33.4 RDW 14.2 Plt Count 207 MPV 10.4 Sodium 141 Potassium 4.1 Chloride 107 Carbon Dioxide 27 Anion Gap 7 L BUN 12.5 Creatinine 0.8 Est GFR (CKD-EPI)AfAm 98.24 Est GFR (CKD-EPI)NonAf 84.76 Random Glucose 87 Calcium 9.1 Total Bilirubin 0.2 AST 31 ALT 32 Alkaline Phosphatase 106 Total Protein 6.1 L Albumin 3.3 L RPR Titer HIV 1&2 Ag/Ab, 4th Gen Non reactive HIV 1&2 Antibody Screen HIV P24 Antigen 05/10/19 05/10/19 07:30 07:30 WBC RBC Hgb Hct MCV MCH MCHC RDW Plt Count MPV Sodium Potassium Chloride Carbon Dioxide Anion Gap BUN Creatinine Est GFR (CKD-EPI)AfAm Est GFR (CKD-EPI)NonAf Random Glucose Calcium Total Bilirubin AST ALT Alkaline Phosphatase Total Protein Albumin RPR Titer Nonreactive HIV 1&2 Ag/Ab, 4th Gen HIV 1&2 Antibody Screen Cancelled HIV P24 Antigen Cancelled pt is aaox3 ambulating no acute distress no s/s of withdrawal - Treatment Hospital Course: Detox Protocol Followed, Detoxed Safely, Responded well, Discharged Condition Good, Rehab Referral Accepted Patient has Accepted a Rehab Referral to: declined rehab; referral provided - Medication Discharge Medications: Ambulatory Orders traZODone HCL [Desyrel -] 150 mg PO HS #90 tablet 04/26/18
== END 2019-05-12 09:25 | disposition home or self-care (01) | DRG 773 ==
LOC: YASAS 11:03 → Y6N 15:05
PROVIDERS: ADMIT Surgery; ATTEND Surgery
PROC: HZ2ZZZZ Detoxification Services for Substance Abuse Treatment (ICD-10-PCS; principal; 2019-05-09)
DX: F11.23 Opioid dependence with withdrawal (principal); F14.20 Cocaine dependence, uncomplicated; F17.210 Nicotine dependence, cigarettes, uncomplicated; Z21 Asymptomatic human immunodeficiency virus [HIV] infection status
CPT/HCPCS: 36415; 80053; 85027; 86593; 87389

== ENCOUNTER 2020-06-28 11:04 | Inpatient (IN) | payer OTHER ==
--- NOTE | 2020-06-28 11:31 | BHS.RME ---
Substance Use & Tx History - Substance Use History Heroin Substance amount: 5 bags Frequency of use: Daily Substance route: Inhalation (ex: sniffing or snorting) Date of Last Use: 06/28/20 (started age 52) Cocaine-Crack Substance amount: $30 Frequency of use: Daily Substance route: Smoking Physical/Psych/Mental Status - Behavior General Behavior: Increased activity (restlessness, agitation) Eye Contact: Normal - Cooperativeness Cooperativeness: Cooperative - Thinking Thought Processes: Tight, Logical, Goal Directed - Physical Health Problems Is patient presently having any pain?: No Does patient presently have any injuries (include location): No Does patient currently have a fever: No Is patient : No COWS - Scale Resting Pulse: 0= [place] 80 or Below Sweatin= Chills/Flushing Restless Observation: 1= Difficult to Sit Still Pupil Size: 1= Pupils >than Normal Bone or Joint Aches: 1= Mild Discomfort Runny Nose/ Eye Tearin= Nasal Congestion GI Upset > 30mins: 1= Stomach Cramp Tremor Observation: 0= None Yawning Observation: 1= 1-2x During Session Anxiety or Irritability: 2=Irritable/Anxious Goose Flesh Skin: 0=Smooth Skin (not yet in withdrawals due to use at 6AM) COWS Score: 9
[2020-06-28 11:42] VITALS: BMI 31.2
--- NOTE | 2020-06-28 12:01 | HP ---
"COWS - Scale Resting Pulse: 0= [place] 80 or Below Sweatin= Chills/Flushing Restless Observation: 1= Difficult to Sit Still Pupil Size: 1= Pupils >than Normal Bone or Joint Aches: 1= Mild Discomfort Runny Nose/ Eye Tearin= Nasal Congestion GI Upset > 30mins: 1= Stomach Cramp Tremor Observation: 0= None Yawning Observation: 1= 1-2x During Session Anxiety or Irritability: 2=Irritable/Anxious Goose Flesh Skin: 0=Smooth Skin (not yet in withdrawals due to use at 6AM) COWS Score: 9 CIWA Score - Admission Criteria OASAS Guidelines: Admission for Medically Managed Detox: Requires at least one of the followin. CIWA greater than 12 2. Seizures within the past 24 hours 3. Delirium tremens within the past 24 hours 4. Hallucinations within the past 24 hours 5. Acute intervention needed for co occurring medical disorder 6. Acute intervention needed for co occurring psychiatric disorder 7. Severe withdrawal that cannot be handled at a lower level of care (continued vomiting, continued diarrhea, abnormal vital signs) requiring intravenous medication and/or fluids 8. Admitting History and Physical - Admission Chief Complaint: Ms. Elkins is s 55 yo woman who presents to [facility] requesting admission to detox for heroin use. History of Present Illness: Ms. Elkins is s 55 yo woman who presents to [facility] requesting admission to detox for heroin use. She was last herew between March 09 and March 12 for rehab. She left early and had no follow up. PMH/PSH/Psych/Legal: insomnia (was given Belsomra on prior admission) SOC: own apartment Substance Use History Heroin Substance amount: 5 bags Frequency of use: Daily Substance route: Inhalation (ex: sniffing or snorting) Date of Last Use: 06/28/20 (started age 52) No OD, NO Narcan Cocaine-Crack Substance amount: $30 Frequency of use: Daily Substance route: Smoking First use age 27y Nicotine one half pack daily, began age 27y Oxycodone: denies Methadone: tristan Elkins, 1965Search Date: 06/28/2020 12:07:25 PM The Drug Utilization Report below displays all of the controlled substance prescriptions, if any, that your patient has filled in the last twelve months. The information displayed on this report is compiled from pharmacy submissions to the Department, and accurately reflects the information as submitted by the pharmacies. This report was requested by: Zee Umaña | Reference #: [id number] There are no results for the search terms that you entered. History Source: Patient Limitations to Obtaining History: No Limitations - Past Medical History ...LMP: 10/29/17 - Smoking History Smoking history: Current every day smoker Have you smoked in the past 12 months: Yes Aproximately how many cigarettes per day: 10 - Alcohol/Substance Use Hx Alcohol Use: Yes (socially) Admission ROS [facility] - HPI Allergies/Adverse Reactions: Allergies Allergy/AdvReac Type Severity Reaction Status Date / Time No Known Allergies Allergy Verified 06/28/20 11:40 Exam Limitations: No Limitations - Ebola screening Have you traveled outside of the country in the last 21 days: No Have you been sick,other than usual withdrawal symptoms: No Do you have a fever: No - Review of Systems Constitutional: Changes in sleep (insomnia) EENT: reports: Blurred Vision (glasses for reading) Respiratory: reports: No Symptoms reported Cardiac: reports: No Symptoms Reported GI: reports: Nausea : reports: No Symptoms Reported Musculoskeletal: reports: Back Pain Integumentary: reports: No Symptoms Reported Neuro: reports: No Symptoms reported Endocrine: reports: No Symptoms Reported Hematology: reports: No Symptoms Reported Psychiatric: reports: Anxious Patient History - Patient Medical History Hx Anemia: No Hx Asthma: No Hx Chronic Obstructive Pulmonary Disease (COPD): No Hx Cancer: No Hx Cardiac Disorders: No Hx Congestive Heart Failure: No Hx Hypertension: No Hx Hypercholesterolemia: No Hx Pacemaker: No HX Cerebrovascular Accident: No Hx Seizures: No Hx Dementia: No Hx Diabetes: No Hx Gastrointestinal Disorders: No Hx Liver Disease: No Hx Genitourinary Disorders: No Hx Sexually Transmitted Disorders: No Hx Renal Disease (ESRD): No Hx Thyroid Disease: No Hx Human Immunodeficiency Virus (HIV): Yes (Last tested Oct 2017) Hx Hepatitis C: No Hx Depression: No Hx Suicide Attempt: No Hx Bipolar Disorder: No Hx Schizophrenia: No - Patient Surgical History Past Surgical History: No Hx Neurologic Surgery: No Hx Cataract Extraction: No Hx Cardiac Surgery: No Hx Lung Surgery: No Hx Breast Surgery: No Hx Breast Biopsy: No Hx Abdominal Surgery: No Hx Appendectomy: No Hx Cholecystectomy: No Hx Genitourinary Surgery: No Hx Section: No Hx Orthopedic Surgery: No Hx Hysterectomy: No Anesthesia Reaction: No - PPD History Date: 03/06/20 Results: 0 mm - Reproductive History Last Menstrual Period: 10/29/17 - Smoking Cessation Smoking history: Current every day smoker Have you smoked in the past 12 months: Yes Aproximately how many cigarettes per day: 10 Cigars Per Day: 0 Hx Chewing Tobacco Use: No Initiated information on smoking cessation: Yes 'Breaking Loose' booklet given: 06/28/20 Admission Physical Exam [facility] - Vital Signs Vital Signs: Vital Signs - 24 hr 06/28/20 11:40 Temperature 96.5 F L Pulse Rate 65 Respiratory 20 Rate Blood Pressure 104/70 - Physical General Appearance: Yes: No Apparent Distress, Nourished, Appropriately Dressed HEENTM: Yes: EOMI, Hearing grossly Normal, Normocephalic, Normal Voice Respiratory: Yes: Lungs Clear, No Respiratory Distress, No Accessory Muscle Use Neck: Yes: Within Normal Limits, Supple Breast: Yes: Breast Exam Deferred Cardiology: Yes: Regular Rhythm, Regular Rate Abdominal: Yes: Normal Bowel Sounds, Non Tender, Soft, Protuberent Genitourinary: Yes: Other (deferred) Back: Yes: Normal Inspection Musculoskeletal: Yes: Gait Steady Extremities: Yes: Normal Inspection, Non-Tender Integumentary: Yes: Within Normal Limits - Diagnostic (1) Opioid dependence with withdrawal Current Visit: Yes Status: Acute (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 (3) Cocaine dependence Current Visit: Yes Status: Acute Qualifiers: Substance use status: uncomplicated Qualified Code(s): F14.20 - Cocaine dependence, uncomplicated (4) Nicotine dependence Current Visit: Yes Status: Acute Qualifiers: Nicotine product type: cigarettes Substance use status: uncomplicated Qualified Code(s): F17.210 - Nicotine dependence, cigarettes, uncomplicated Cleared for Admission S - Detox or Rehab [facility] Level of Care: Medically Managed Detox Regimen/Protocol: Methadone Breathalyzer - Breathalyzer Breathalyzer: 0 Urine Drug Screen - Test Device Lot number: [id number] Expiration date: 12/30/21 - Control Is test valid?: Yes - Results Drug screen NEGATIVE: No Urine drug screen results: REILLY-Cocaine, FEN-Fentanyl, MOP-Opiates, OXY- Oxycodone, MTD-Methadone Inpatient Rehab Admission - Rehab Decision to Admit Inpatient rehab admission?: No"
[2020-06-28] MEDS ORDERED: NICOTINE POLACRILEX 2 MG GUM BUC PRN (12:08)
[2020-06-28] MEDS ORDERED: BISMUTH SUBSALICYLATE 262 MG/15 ML BTL PO PRN (12:08)
[2020-06-28] MEDS ORDERED: MENTHOL/PHENOL 1 EACH UD MM PRN (12:08)
[2020-06-28] MEDS ORDERED: ONDANSETRON *ODT* 4 MG TABLET SL PRN (12:08)
[2020-06-28] MEDS ORDERED: IBUPROFEN 400 MG TABLET (FP) PO PRN (12:08)
[2020-06-28] MEDS ORDERED: ACETAMINOPHEN 325 MG TABLET (FP) PO PRN ×2 (12:08)
[2020-06-28] MEDS ORDERED: METHADONE HCL 10 MG TABLET (FOR DETOX USE ONLY) PO ONE (12:08)
[2020-06-28] MEDS ORDERED: MAG HYDROX/AL HYDROX/SIMETH 30 ML UNIT-DOSE CUP PO PRN (12:08)
[2020-06-28] MEDS ORDERED: METHOCARBAMOL 500 MG TABLET PO PRN (12:08)
[2020-06-28] MEDS ORDERED: MAGNESIUM HYDROX 2400MG/30ML ORAL SUSPENSION 30 ML CUP PO PRN (12:08)
[2020-06-28] MEDS ORDERED: cloNIDine HCL 0.1 MG TABLET PO PRN (12:08)
[2020-06-28] MEDS ORDERED: MAGNESIUM CITRATE 300 ML BOTTLE PO PRN (12:08)
[2020-06-28] MEDS: NICOTINE 14 MG/24 HOURS TOPICAL PATCH TD SCH (13:43)
[2020-06-28 14:41] LABS: HEMATOCRIT 42.4 % (32.4-45.2); HEMOGLOBIN 14.2 GM/dL (10.7-15.3); MCH 29.6 pg (25.7-33.7); MCHC 33.5 g/dl (32.0-36.0); MEAN CELL VOLUME 88.5 fl (80-96); MEAN PLT VOLUME 10.3 fl (7.5-11.1); PLATELET COUNT 244 K/MM3 (134-434); RBC 4.79 M/mm3 (3.60-5.2); RDW 14.9 % (11.6-15.6); WHITE BLOOD COUNT 5.6 K/mm3 (4.0-10.0)
[2020-06-28 14:53] LABS: ALBUMIN 3.8 g/dl (3.4-5.0); BILIRUBIN,TOTAL 0.3 mg/dL (0.2-1); CALCIUM 9.2 mg/dL (8.5-10.1); CREATININE 0.9 mg/dL (0.55-1.3); POTASSIUM 4.5 mmol/L (3.5-5.1); TOT PROT 7.3 g/dl (6.4-8.2)
[2020-06-28] MEDS: hydrOXYzine PAMOATE 25 MG CAPSULE (FP) PO SCH ×3 (15:26→22:19)
--- NOTE | 2020-06-28 17:11 | EKG ---
Test Reason : Blood Pressure : / mmHG Vent. Rate : 056 BPM Atrial Rate : 056 BPM P-R Int : 126 ms QRS Dur : 086 ms QT Int : 422 ms P-R-T Axes : 070 019 028 degrees QTc Int : 407 ms SINUS BRADYCARDIA WITH PREMATURE ATRIAL COMPLEXES MODERATE VOLTAGE CRITERIA FOR LVH, MAY BE NORMAL VARIANT BORDERLINE ECG WHEN COMPARED WITH ECG OF 04-MAR-2020 10:27, PREMATURE ATRIAL COMPLEXES ARE NOW PRESENT Confirmed by LYNETTE DAVALOS, GUERRERO ([id number]) on 06/28/2020 5:10:58 PM Referred By: Confirmed By:GUERRERO OJEDA MD
[2020-06-28] MEDS: THIAMINE HCL 100 MG TABLET (FP) PO SCH (22:19)
[2020-06-28] MEDS: MELATONIN 5 MG TABLETS PO SCH (22:19)
[2020-06-29] MEDS: hydrOXYzine PAMOATE 25 MG CAPSULE (FP) PO SCH ×5 (06:00→22:31)
[2020-06-29] MEDS ORDERED: METHADONE HCL 5 MG TABLET (FOR DETOX USE ONLY) ONE (09:08)
[2020-06-29] MEDS ORDERED: METHADONE HCL 10 MG TABLET (FOR DETOX USE ONLY) ONE (09:08)
[2020-06-29] MEDS ORDERED: METHADONE (DETOX) 20 MG, METHADONE (DETOX) 5 MG PO ONE (10:00)
[2020-06-29] MEDS: PRENATAL VITAMINS W/ FOLIC ACID TABLET (FP) PO SCH (10:12)
[2020-06-29] MEDS: NICOTINE 14 MG/24 HOURS TOPICAL PATCH TD SCH (10:13)
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
[2020-06-29] MEDS ORDERED: FLU VACCINE (FLULAVAL) PF 60 MCG/0.5 ML SYRINGE 2020-2021 IM ONE (12:00)
--- NOTE | 2020-06-29 15:02 | PN ---
BHS COWS - Scale Resting Pulse: 0= [place] 80 or Below Sweatin= No chills or Flushing Restless Observation: 0= Sits Still Pupil Size: 1= Pupils >than Normal Bone or Joint Aches: 1= Mild Discomfort Runny Nose/ Eye Tearin= None GI Upset > 30mins: 0= None Tremor Observation of Outstretched Hands: 1= Tremor [place], Not Seen Yawning Observation: 0= None Anxiety or Irritability: 2=Irritable/Anxious Goose Flesh Skin: 3=Piloerection COWS Score: 8 BHS Progress Note (SOAP) Subjective: 55 years old female was admitted on 06/28/20 for opiate withdrawal sx management treating with methadone detox regiment feels tired resting in bed prefers to stay in bed limited conversation with staff Objective: 06/29/20 15:01 Vital Signs - 24 hr 06/28/20 06/28/20 06/29/20 16:49 20:37 06:47 Temperature 97.1 F L 96.9 F L 97.3 F L Pulse Rate 75 55 L 66 Respiratory 18 18 18 Rate Blood Pressure 100/68 114/75 107/76 O2 Sat by Pulse 100 98 Oximetry (%) 06/29/20 06/29/20 08:45 12:42 Temperature 97.5 F L 97.5 F L Pulse Rate 65 64 Respiratory 16 18 Rate Blood Pressure 101/61 110/62 O2 Sat by Pulse 98 98 Oximetry (%) Laboratory Tests 06/28/20 06/28/20 06/28/20 12:00 12:00 12:00 WBC 5.6 RBC 4.79 Hgb 14.2 Hct 42.4 MCV 88.5 MCH 29.6 MCHC 33.5 RDW 14.9 Plt Count 244 D MPV 10.3 Sodium 142 Potassium 4.5 Chloride 108 H Carbon Dioxide 29 Anion Gap 5 L BUN 10.0 Creatinine 0.9 Est GFR (CKD-EPI)AfAm 84.61 Est GFR (CKD-EPI)NonAf 73.00 Random Glucose 61 L Calcium 9.2 Total Bilirubin 0.3 AST 22 ALT 24 Alkaline Phosphatase 149 H Total Protein 7.3 Albumin 3.8 Syphilis Serology RPR Titer COVID-19 (ANDREAS) HIV Ag/Ab Combo Qual Negative 06/28/20 06/28/20 06/28/20 12:00 12:00 12:15 WBC RBC Hgb Hct MCV MCH MCHC RDW Plt Count MPV Sodium Potassium Chloride Carbon Dioxide Anion Gap BUN Creatinine Est GFR (CKD-EPI)AfAm Est GFR (CKD-EPI)NonAf Random Glucose Calcium Total Bilirubin AST ALT Alkaline Phosphatase Total Protein Albumin Syphilis Serology Reactive A* RPR Titer Reactive 1:1 H COVID-19 (ANDREAS) Not detected HIV Ag/Ab Combo Qual 06/29/20 15:06 syphilis contacted treated around February 2020 Assessment: 06/29/20 15:07 opiate withdrawal Plan: methadone regiment
[2020-06-29] MEDS: THIAMINE HCL 100 MG TABLET (FP) PO SCH (22:30)
[2020-06-29] MEDS: MELATONIN 5 MG TABLETS PO SCH (22:31)
[2020-06-29] MEDS: SUVOREXANT 10 MG TABLET PO PRN (22:32)
[2020-06-30] MEDS: hydrOXYzine PAMOATE 25 MG CAPSULE (FP) PO SCH ×5 (07:10→22:18)
[2020-06-30] MEDS ORDERED: METHADONE HCL 10 MG TABLET (FOR DETOX USE ONLY) PO ONE (10:00)
[2020-06-30] MEDS: PRENATAL VITAMINS W/ FOLIC ACID TABLET (FP) PO SCH (10:29)
[2020-06-30] MEDS: NICOTINE 14 MG/24 HOURS TOPICAL PATCH TD SCH (10:29)
--- NOTE | 2020-06-30 11:03 | PN ---
BHS Progress Note (SOAP) Subjective: alert,irritable,anxious,interrupted sleep,tremor,aching pain in the body and back,nausea Objective: 06/30/20 17:42 Vital Signs Temperature 97.7 F 06/30/20 10:26 Pulse Rate 88 06/30/20 10:26 Respiratory Rate 18 06/30/20 10:26 Blood Pressure 118/87 06/30/20 10:26 O2 Sat by Pulse Oximetry (%) 97 06/30/20 06:46 06/30/20 17:42 Laboratory Last Values WBC 5.6 K/mm3 (4.0-10.0) 06/28/20 12:00 RBC 4.79 M/mm3 (3.60-5.2) 06/28/20 12:00 Hgb 14.2 GM/dL (10.7-15.3) 06/28/20 12:00 Hct 42.4 % (32.4-45.2) 06/28/20 12:00 MCV 88.5 fl (80-96) 06/28/20 12:00 MCH 29.6 pg (25.7-33.7) 06/28/20 12:00 MCHC 33.5 g/dl (32.0-36.0) 06/28/20 12:00 RDW 14.9 % (11.6-15.6) 06/28/20 12:00 Plt Count 244 K/MM3 (134-434) D 06/28/20 12:00 MPV 10.3 fl (7.5-11.1) 06/28/20 12:00 Sodium 142 mmol/L (136-145) 06/28/20 12:00 Potassium 4.5 mmol/L (3.5-5.1) 06/28/20 12:00 Chloride 108 mmol/L (98-107) H 06/28/20 12:00 Carbon Dioxide 29 mmol/L (21-32) 06/28/20 12:00 Anion Gap 5 MMOL/L (8-16) L 06/28/20 12:00 BUN 10.0 mg/dL (7-18) 06/28/20 12:00 Creatinine 0.9 mg/dL (0.55-1.3) 06/28/20 12:00 Est GFR (CKD-EPI)AfAm 84.61 06/28/20 12:00 Est GFR (CKD-EPI)NonAf 73.00 06/28/20 12:00 Random Glucose 61 mg/dL (74-106) L 06/28/20 12:00 Calcium 9.2 mg/dL (8.5-10.1) 06/28/20 12:00 Total Bilirubin 0.3 mg/dL (0.2-1) 06/28/20 12:00 AST 22 U/L (15-37) 06/28/20 12:00 ALT 24 U/L (13-61) 06/28/20 12:00 Alkaline Phosphatase 149 U/L (45-117) H 06/28/20 12:00 Total Protein 7.3 g/dl (6.4-8.2) 06/28/20 12:00 Albumin 3.8 g/dl (3.4-5.0) 06/28/20 12:00 Syphilis Serology Reactive (NONREACTIVE) A* 06/28/20 12:00 RPR Titer Reactive 1:1 (NONREACTIVE) H 06/28/20 12:00 COVID-19 (ANDREAS) Not detected (Not Detected) 06/28/20 12:15 HIV Ag/Ab Combo Qual Negative (NEGATIVE) 06/28/20 12:00 07/01/20 18:13 history of syphilis treated before Assessment: 06/30/20 17:43 withdrawal symptom Plan: continue detox methadone regimen
[2020-06-30] MEDS: THIAMINE HCL 100 MG TABLET (FP) PO SCH (22:17)
[2020-06-30] MEDS: MELATONIN 5 MG TABLETS PO SCH (22:18)
[2020-06-30] MEDS: SUVOREXANT 10 MG TABLET PO PRN (22:18)
[2020-07-01] MEDS: hydrOXYzine PAMOATE 25 MG CAPSULE (FP) PO SCH ×5 (05:32→22:43)
[2020-07-01] MEDS ORDERED: METHADONE HCL 5 MG TABLET (FOR DETOX USE ONLY) ONE (09:32)
[2020-07-01] MEDS ORDERED: METHADONE HCL 10 MG TABLET (FOR DETOX USE ONLY) ONE (09:32)
[2020-07-01] MEDS ORDERED: METHADONE (DETOX) 10 MG, METHADONE (DETOX) 5 MG PO ONE (10:00)
[2020-07-01] MEDS: PRENATAL VITAMINS W/ FOLIC ACID TABLET (FP) PO SCH (10:25)
[2020-07-01] MEDS: NICOTINE 14 MG/24 HOURS TOPICAL PATCH TD SCH (10:26)
--- NOTE | 2020-07-01 14:03 | PN ---
BHS COWS - Scale Resting Pulse: 0= [place] 80 or Below Sweatin= No chills or Flushing Restless Observation: 0= Sits Still Pupil Size: 1= Pupils >than Normal Bone or Joint Aches: 1= Mild Discomfort Runny Nose/ Eye Tearin= Runny Nose/Eyes GI Upset > 30mins: 1= Stomach Cramp Tremor Observation of Outstretched Hands: 2= Slight Tremor Visible Yawning Observation: 1= 1-2x During Session Anxiety or Irritability: 2=Irritable/Anxious Goose Flesh Skin: 0=Smooth Skin COWS Score: 10 BHS Progress Note (SOAP) Subjective: alert,irritable,anxious,interrupted sleep,aching pain in the body and back Objective: 07/01/20 18:16 Vital Signs Temperature 96.6 F L 07/01/20 17:15 Pulse Rate 84 07/01/20 17:15 Respiratory Rate 18 07/01/20 17:15 Blood Pressure 116/77 07/01/20 17:15 O2 Sat by Pulse Oximetry (%) 98 07/01/20 13:27 Assessment: 07/01/20 18:16 withdrawal symptom Plan: continue detox methadone regimen
[2020-07-01] MEDS: SUVOREXANT 10 MG TABLET PO PRN (22:43)
[2020-07-01] MEDS: THIAMINE HCL 100 MG TABLET (FP) PO SCH (22:43)
[2020-07-01] MEDS: MELATONIN 5 MG TABLETS PO SCH (22:43)
[2020-07-02] MEDS: hydrOXYzine PAMOATE 25 MG CAPSULE (FP) PO SCH ×5 (07:18→21:41)
[2020-07-02] MEDS ORDERED: METHADONE HCL 10 MG TABLET (FOR DETOX USE ONLY) PO ONE (10:00)
[2020-07-02] MEDS: PRENATAL VITAMINS W/ FOLIC ACID TABLET (FP) PO SCH (10:37)
[2020-07-02] MEDS: NICOTINE 14 MG/24 HOURS TOPICAL PATCH TD SCH (10:37)
--- NOTE | 2020-07-02 12:04 | PN ---
BHS COWS - Scale Resting Pulse: 0= [place] 80 or Below Sweatin= No chills or Flushing Restless Observation: 1= Difficult to Sit Still Pupil Size: 1= Pupils >than Normal Bone or Joint Aches: 1= Mild Discomfort Runny Nose/ Eye Tearin= Nasal Congestion GI Upset > 30mins: 1= Stomach Cramp Tremor Observation of Outstretched Hands: 0= None Yawning Observation: 0= None Anxiety or Irritability: 1=Feels Anxious/Irritable Goose Flesh Skin: 0=Smooth Skin COWS Score: 6 BHS Progress Note (SOAP) Subjective: Pt seen at bedside this morning. Pt reports improving withdrawal symptoms. Pt also c/o constipation; reporting only 1 BM during her detox admission so far. Objective: Last Vital Signs Temp Pulse Resp BP Pulse Ox 96.9 F L 66 18 100/66 98 07/02/20 08:52 07/02/20 08:52 07/02/20 08:52 07/02/20 08:52 07/02/20 06:55 Gen - NAD, well dev/well nourished, AOx3 CV - RRR, normal s1, s2 Pulm - CTAB, good air entry Mental Status - anxious MSK/ext - gait steady, normal inspection Skin - dry, normal color CBC,CMP WBC 5.6 K/mm3 (4.0-10.0) 06/28/20 12:00 RBC 4.79 M/mm3 (3.60-5.2) 06/28/20 12:00 Hgb 14.2 GM/dL (10.7-15.3) 06/28/20 12:00 Hct 42.4 % (32.4-45.2) 06/28/20 12:00 MCV 88.5 fl (80-96) 06/28/20 12:00 MCH 29.6 pg (25.7-33.7) 06/28/20 12:00 MCHC 33.5 g/dl (32.0-36.0) 06/28/20 12:00 RDW 14.9 % (11.6-15.6) 06/28/20 12:00 Plt Count 244 K/MM3 (134-434) D 06/28/20 12:00 MPV 10.3 fl (7.5-11.1) 06/28/20 12:00 Sodium 142 mmol/L (136-145) 06/28/20 12:00 Potassium 4.5 mmol/L (3.5-5.1) 06/28/20 12:00 Chloride 108 mmol/L (98-107) H 06/28/20 12:00 Carbon Dioxide 29 mmol/L (21-32) 06/28/20 12:00 Anion Gap 5 MMOL/L (8-16) L 06/28/20 12:00 BUN 10.0 mg/dL (7-18) 06/28/20 12:00 Creatinine 0.9 mg/dL (0.55-1.3) 06/28/20 12:00 Est GFR (CKD-EPI)AfAm 84.61 06/28/20 12:00 Est GFR (CKD-EPI)NonAf 73.00 06/28/20 12:00 Random Glucose 61 mg/dL (74-106) L 06/28/20 12:00 Calcium 9.2 mg/dL (8.5-10.1) 06/28/20 12:00 Total Bilirubin 0.3 mg/dL (0.2-1) 06/28/20 12:00 AST 22 U/L (15-37) 06/28/20 12:00 ALT 24 U/L (13-61) 06/28/20 12:00 Alkaline Phosphatase 149 U/L (45-117) H 06/28/20 12:00 Total Protein 7.3 g/dl (6.4-8.2) 06/28/20 12:00 Albumin 3.8 g/dl (3.4-5.0) 06/28/20 12:00 07/02/20 11:59 07/02/20 12:01 Assessment: Pt with improving opioid withdrawal symptoms. 07/02/20 12:03 Plan: Continue detox methadone regimen Continue Belsomra 20mg HS PRN, per Psychiatry Pt informed that she can ask for her prn meds for constipation.
[2020-07-02] MEDS: SUVOREXANT 10 MG TABLET PO PRN (21:41)
[2020-07-02] MEDS: THIAMINE HCL 100 MG TABLET (FP) PO SCH (21:42)
[2020-07-02] MEDS: MELATONIN 5 MG TABLETS PO SCH (21:42)
[2020-07-03] MEDS ORDERED: METHADONE HCL 5 MG TABLET (FOR DETOX USE ONLY) PO ONE (06:00)
[2020-07-03] MEDS: hydrOXYzine PAMOATE 25 MG CAPSULE (FP) PO SCH ×2 (06:14→10:40)
[2020-07-03] MEDS: NICOTINE 14 MG/24 HOURS TOPICAL PATCH TD SCH (10:40)
[2020-07-03] MEDS: PRENATAL VITAMINS W/ FOLIC ACID TABLET (FP) PO SCH (10:40)
[2020-07-03 11:19] VITALS: BP 120/32; PULSE 64; TEMP 97.5
[2020-07-03] MEDS ORDERED: FLU VACCINE (FLULAVAL) PF 60 MCG/0.5 ML SYRINGE 2020-2021 IM ONE (12:00)
--- NOTE | 2020-07-03 15:38 | DS ---
[facility] Detox Discharge Summary Admission Date: 06/28/20 Discharge Date: 07/03/20 - History Present History: Cocaine Dependence, Opioid Dependence Additional Comments: Pt is medically cleared and discharged today. Pt completed the detox protocol. pt is encouraged to follow-up with an outpatient CD program and also to follow- up with her pmd which she verbalized understanding. Pt is AOX3, in no acute respiratory distress, Full ROM, and ambulatory. Pertinent Past History: h/o heroin and cocaine use disorder. - Physical Exam Results Vital Signs: Vital Signs Temperature 97.5 F L 07/03/20 08:49 Pulse Rate 64 07/03/20 08:49 Respiratory Rate 18 07/03/20 08:49 Blood Pressure 120/32 L 07/03/20 08:49 O2 Sat by Pulse Oximetry (%) 99 07/03/20 06:00 Vital Signs 07/03/20 08:49 Temperature 97.5 F L Pulse Rate 64 Respiratory 18 Rate Blood Pressure 120/32 L Laboratory Last Values WBC 5.6 K/mm3 (4.0-10.0) 06/28/20 12:00 RBC 4.79 M/mm3 (3.60-5.2) 06/28/20 12:00 Hgb 14.2 GM/dL (10.7-15.3) 06/28/20 12:00 Hct 42.4 % (32.4-45.2) 06/28/20 12:00 MCV 88.5 fl (80-96) 06/28/20 12:00 MCH 29.6 pg (25.7-33.7) 06/28/20 12:00 MCHC 33.5 g/dl (32.0-36.0) 06/28/20 12:00 RDW 14.9 % (11.6-15.6) 06/28/20 12:00 Plt Count 244 K/MM3 (134-434) D 06/28/20 12:00 MPV 10.3 fl (7.5-11.1) 06/28/20 12:00 Sodium 142 mmol/L (136-145) 06/28/20 12:00 Potassium 4.5 mmol/L (3.5-5.1) 06/28/20 12:00 Chloride 108 mmol/L (98-107) H 06/28/20 12:00 Carbon Dioxide 29 mmol/L (21-32) 06/28/20 12:00 Anion Gap 5 MMOL/L (8-16) L 06/28/20 12:00 BUN 10.0 mg/dL (7-18) 06/28/20 12:00 Creatinine 0.9 mg/dL (0.55-1.3) 06/28/20 12:00 Est GFR (CKD-EPI)AfAm 84.61 06/28/20 12:00 Est GFR (CKD-EPI)NonAf 73.00 06/28/20 12:00 Random Glucose 61 mg/dL (74-106) L 06/28/20 12:00 Calcium 9.2 mg/dL (8.5-10.1) 06/28/20 12:00 Total Bilirubin 0.3 mg/dL (0.2-1) 06/28/20 12:00 AST 22 U/L (15-37) 06/28/20 12:00 ALT 24 U/L (13-61) 06/28/20 12:00 Alkaline Phosphatase 149 U/L (45-117) H 06/28/20 12:00 Total Protein 7.3 g/dl (6.4-8.2) 06/28/20 12:00 Albumin 3.8 g/dl (3.4-5.0) 06/28/20 12:00 Syphilis Serology Reactive (NONREACTIVE) A* 06/28/20 12:00 RPR Titer Reactive 1:1 (NONREACTIVE) H 06/28/20 12:00 COVID-19 (ANDREAS) Not detected (Not Detected) 06/28/20 12:15 HIV Ag/Ab Combo Qual Negative (NEGATIVE) 06/28/20 12:00 Labs noted. Pertinent Admission Physical Exam Findings: withdrawal symptoms. - Treatment Hospital Course: Detox Protocol Followed, Detoxed Safely, Responded well, Discharged Condition Good - Medication Discharge Medications: Ambulatory Orders Naloxone HCl [Narcan] 4 mg NS ASDIR PRN #1 spray 03/08/20 - Diagnosis (1) Cocaine dependence Status: Chronic Qualifiers: Substance use status: uncomplicated Qualified Code(s): F14.20 - Cocaine dependence, uncomplicated (2) Heroin abuse Status: Chronic (3) Nicotine dependence Status: Chronic Qualifiers: Nicotine product type: cigarettes Substance use status: uncomplicated Qualified Code(s): F17.210 - Nicotine dependence, cigarettes, uncomplicated - AMA Did Patient Leave Against Medical Advice: No
== END 2020-07-03 09:21 | disposition home or self-care (01) | DRG 773 ==
LOC: YASAS 11:04 → Y3N 12:03
PROVIDERS: ADMIT Allergy & Immunology; ATTEND Allergy & Immunology
PROC: HZ2ZZZZ Detoxification Services for Substance Abuse Treatment (ICD-10-PCS; principal; 2020-06-28)
DX: F11.23 Opioid dependence with withdrawal (principal); F14.20 Cocaine dependence, uncomplicated; F17.210 Nicotine dependence, cigarettes, uncomplicated; F19.282 Other psychoactive substance dependence with psychoactive substance-induced sleep disorder; Z21 Asymptomatic human immunodeficiency virus [HIV] infection status; K59.00 Constipation, unspecified; Z62.810 Personal history of physical and sexual abuse in childhood; Z56.0 Unemployment, unspecified; Z59.0 Homelessness
CPT/HCPCS: 36415; 80053; 85027; 86593; 86780; 87389; 93005; 93010; U0003

== ENCOUNTER 2020-09-21 11:43 | Inpatient (IN) | payer OTHER ==
[2020-09-21 12:28] VITALS: BMI 30.5
[2020-09-21] MEDS ORDERED: ACETAMINOPHEN 325 MG TABLET (FP) PO PRN ×2 (13:13)
[2020-09-21] MEDS ORDERED: METHOCARBAMOL 500 MG TABLET PO PRN (13:13)
[2020-09-21] MEDS ORDERED: IBUPROFEN 400 MG TABLET (FP) PO PRN (13:13)
[2020-09-21] MEDS ORDERED: NICOTINE POLACRILEX 2 MG GUM BUC PRN (13:13)
[2020-09-21] MEDS ORDERED: cloNIDine HCL 0.1 MG TABLET PO PRN (13:13)
[2020-09-21] MEDS ORDERED: methaDONE HCL 10 MG TABLET (FOR DETOX USE ONLY) PO ONE (13:13)
[2020-09-21] MEDS ORDERED: MAG HYDROX/AL HYDROX/SIMETH 30 ML UNIT-DOSE CUP PO PRN (13:13)
[2020-09-21] MEDS ORDERED: ONDANSETRON *ODT* 4 MG TABLET SL PRN (13:13)
[2020-09-21] MEDS ORDERED: MAGNESIUM HYDROX 2400MG/30ML ORAL SUSPENSION 30 ML CUP PO PRN (13:13)
[2020-09-21] MEDS ORDERED: BISMUTH SUBSALICYLATE 262 MG/15 ML BTL PO PRN (13:13)
[2020-09-21] MEDS ORDERED: MAGNESIUM CITRATE 300 ML BOTTLE PO PRN (13:13)
[2020-09-21] MEDS ORDERED: MENTHOL/PHENOL 1 EACH UD MM PRN (13:13)
[2020-09-21] MEDS: hydrOXYzine PAMOATE 25 MG CAPSULE (FP) PO SCH ×3 (14:48→23:06)
[2020-09-21] MEDS: NICOTINE 14 MG/24 HOURS TOPICAL PATCH TD SCH (14:49)
[2020-09-21 15:06] LABS: HEMATOCRIT 39.5 % (32.4-45.2); HEMOGLOBIN 13.1 GM/dL (10.7-15.3); MCH 29.4 pg (25.7-33.7); MCHC 33.2 g/dl (32.0-36.0); MEAN CELL VOLUME 88.5 fl (80-96); MEAN PLT VOLUME 10.7 fl (7.5-11.1); PLATELET COUNT 201 K/MM3 (134-434); RBC 4.47 M/mm3 (3.60-5.2); RDW 14.7 % (11.6-15.6); WHITE BLOOD COUNT 4.9 K/mm3 (4.0-10.0)
[2020-09-21 15:11] LABS: CALCIUM 9.2 mg/dL (8.5-10.1)
[2020-09-21 15:13] LABS: ALBUMIN 3.6 g/dl (3.4-5.0); BLOOD UREA NITROGEN 11.9 mg/dL (7-18)
[2020-09-21 15:16] LABS: BILIRUBIN,TOTAL 0.6 mg/dL (0.2-1)
[2020-09-21 15:17] LABS: TOT PROT 7.1 g/dl (6.4-8.2)
[2020-09-21] MEDS: THIAMINE HCL 100 MG TABLET (FP) PO SCH (22:20)
[2020-09-21] MEDS: MELATONIN 5 MG TABLETS PO SCH (23:05)
[2020-09-21] MEDS ORDERED: SUVOREXANT 10 MG TABLET PO ONE (23:48)
[2020-09-22] MEDS: hydrOXYzine PAMOATE 25 MG CAPSULE (FP) PO SCH ×5 (06:55→22:19)
[2020-09-22] MEDS ORDERED: methaDONE HCL 10 MG TABLET (FOR DETOX USE ONLY) ONE (09:45)
[2020-09-22] MEDS: PRENATAL VITAMINS W/ FOLIC ACID TABLET (FP) PO SCH (10:13)
[2020-09-22] MEDS: NICOTINE 14 MG/24 HOURS TOPICAL PATCH TD SCH (10:13)
[2020-09-22 12:00] LABS: HIV INTERPRETATION NEGATIVE (NEGATIVE)
[2020-09-22] MEDS: THIAMINE HCL 100 MG TABLET (FP) PO SCH (22:19)
[2020-09-22] MEDS: SUVOREXANT 20 MG TABLET PO PRN (22:19)
[2020-09-22] MEDS: MELATONIN 5 MG TABLETS PO SCH (22:20)
[2020-09-23] MEDS: hydrOXYzine PAMOATE 25 MG CAPSULE (FP) PO SCH ×5 (06:07→21:42)
[2020-09-23] MEDS ORDERED: methaDONE HCL 10 MG TABLET (FOR DETOX USE ONLY) PO ONE (10:00)
[2020-09-23] MEDS: NICOTINE 14 MG/24 HOURS TOPICAL PATCH TD SCH (10:28)
[2020-09-23] MEDS: PRENATAL VITAMINS W/ FOLIC ACID TABLET (FP) PO SCH (10:28)
[2020-09-23] MEDS: THIAMINE HCL 100 MG TABLET (FP) PO SCH (21:42)
[2020-09-23] MEDS: SUVOREXANT 20 MG TABLET PO PRN (21:44)
[2020-09-23] MEDS: MELATONIN 5 MG TABLETS PO SCH (21:44)
[2020-09-24] MEDS: hydrOXYzine PAMOATE 25 MG CAPSULE (FP) PO SCH ×5 (06:07→22:19)
[2020-09-24] MEDS ORDERED: methaDONE HCL 10 MG TABLET (FOR DETOX USE ONLY) ONE (09:02)
[2020-09-24] MEDS: PRENATAL VITAMINS W/ FOLIC ACID TABLET (FP) PO SCH (10:07)
[2020-09-24] MEDS: NICOTINE 14 MG/24 HOURS TOPICAL PATCH TD SCH (10:07)
[2020-09-24] MEDS: THIAMINE HCL 100 MG TABLET (FP) PO SCH (22:19)
[2020-09-24] MEDS: MELATONIN 5 MG TABLETS PO SCH (22:19)
[2020-09-24] MEDS: SUVOREXANT 20 MG TABLET PO PRN (22:19)
[2020-09-25] MEDS: hydrOXYzine PAMOATE 25 MG CAPSULE (FP) PO SCH ×5 (06:40→22:08)
[2020-09-25] MEDS ORDERED: methaDONE HCL 10 MG TABLET (FOR DETOX USE ONLY) PO ONE (10:00)
[2020-09-25] MEDS: NICOTINE 14 MG/24 HOURS TOPICAL PATCH TD SCH (10:10)
[2020-09-25] MEDS: PRENATAL VITAMINS W/ FOLIC ACID TABLET (FP) PO SCH (10:11)
[2020-09-25] MEDS ORDERED: SUVOREXANT 10 MG TABLET PO PRN (22:00)
[2020-09-25] MEDS: THIAMINE HCL 100 MG TABLET (FP) PO SCH (22:08)
[2020-09-25] MEDS: MELATONIN 5 MG TABLETS PO SCH (22:33)
[2020-09-26] MEDS: hydrOXYzine PAMOATE 25 MG CAPSULE (FP) PO SCH (06:01)
[2020-09-26 07:14] VITALS: BP 110/74; PULSE 69; TEMP 98.2
== END 2020-09-26 09:08 | disposition home or self-care (01) | DRG 773 ==
LOC: YASAS 11:43 → Y6N 14:06
PROVIDERS: ADMIT Allergy & Immunology; ATTEND Allergy & Immunology
PROC: HZ2ZZZZ Detoxification Services for Substance Abuse Treatment (ICD-10-PCS; principal; 2020-09-21)
DX: F11.23 Opioid dependence with withdrawal (principal); F14.20 Cocaine dependence, uncomplicated; F17.210 Nicotine dependence, cigarettes, uncomplicated; F19.282 Other psychoactive substance dependence with psychoactive substance-induced sleep disorder; F19.24 Other psychoactive substance dependence with psychoactive substance-induced mood disorder; G47.00 Insomnia, unspecified; E86.0 Dehydration; Z62.810 Personal history of physical and sexual abuse in childhood; Z20.2 Contact with and (suspected) exposure to infections with a predominantly sexual mode of transmission; Z56.0 Unemployment, unspecified
CPT/HCPCS: 36415; 80053; 81025; 85027; 86593; 86780; 87389; C9803; U0003

== ENCOUNTER 2020-12-03 11:03 | Inpatient (IN) | payer OTHER ==
[2020-12-03 11:28] VITALS: BMI 29.0
[2020-12-03] MEDS ORDERED: MENTHOL/PHENOL 1 EACH UD MM PRN (12:16)
[2020-12-03] MEDS ORDERED: ACETAMINOPHEN 325 MG TABLET (FP) PO PRN ×2 (12:16)
[2020-12-03] MEDS ORDERED: MAGNESIUM CITRATE 300 ML BOTTLE PO PRN (12:16)
[2020-12-03] MEDS ORDERED: IBUPROFEN 400 MG TABLET (FP) PO PRN (12:16)
[2020-12-03] MEDS ORDERED: NICOTINE POLACRILEX 2 MG GUM BUC PRN (12:16)
[2020-12-03] MEDS ORDERED: MAG HYDROX/AL HYDROX/SIMETH 30 ML UNIT-DOSE CUP PO PRN (12:16)
[2020-12-03] MEDS ORDERED: cloNIDine HCL 0.1 MG TABLET PO PRN (12:16)
[2020-12-03] MEDS ORDERED: ONDANSETRON *ODT* 4 MG TABLET SL PRN (12:16)
[2020-12-03] MEDS ORDERED: BISMUTH SUBSALICYLATE 524 MG/30 ML UD PO PRN (12:16)
[2020-12-03] MEDS ORDERED: MAGNESIUM HYDROX 2400MG/30ML ORAL SUSPENSION 30 ML CUP PO PRN (12:16)
[2020-12-03] MEDS ORDERED: METHADONE HCL 10 MG TABLET (FOR DETOX USE ONLY) PO ONE (12:45)
[2020-12-03 15:18] LABS: HEMATOCRIT 41.3 % (32.4-45.2); HEMOGLOBIN 13.6 GM/dL (10.7-15.3); MCH 29.1 pg (25.7-33.7); MCHC 32.9 g/dl (32.0-36.0); MEAN CELL VOLUME 88.5 fl (80-96); MEAN PLT VOLUME 10.5 fl (7.5-11.1); PLATELET COUNT 189 K/MM3 (134-434); RBC 4.67 M/mm3 (3.60-5.2); RDW 14.7 % (11.6-15.6); WHITE BLOOD COUNT 5.6 K/mm3 (4.0-10.0)
[2020-12-03 15:21] LABS: POTASSIUM 4.3 mmol/L (3.5-5.1)
[2020-12-03 15:24] LABS: CALCIUM 9.5 mg/dL (8.5-10.1)
[2020-12-03 15:25] LABS: ALBUMIN 3.7 g/dl (3.4-5.0); BLOOD UREA NITROGEN 10.3 mg/dL (7-18)
[2020-12-03 15:28] LABS: CREATININE 0.9 mg/dL (0.55-1.3)
[2020-12-03] MEDS: hydrOXYzine PAMOATE 25 MG CAPSULE (FP) PO SCH ×3 (15:29→23:26)
[2020-12-03 15:30] LABS: BILIRUBIN,TOTAL 0.5 mg/dL (0.2-1); TOT PROT 6.9 g/dl (6.4-8.2)
[2020-12-03] MEDS: NICOTINE 21 MG/24 HOURS TOPICAL PATCH TD SCH (15:31)
[2020-12-03 16:19] LABS: HIV INTERPRETATION NEGATIVE (NEGATIVE)
[2020-12-03] MEDS: THIAMINE HCL 100 MG TABLET (FP) PO SCH (23:26)
[2020-12-03] MEDS: MELATONIN 5 MG TABLETS PO SCH (23:26)
[2020-12-04] MEDS: hydrOXYzine PAMOATE 25 MG CAPSULE (FP) PO SCH ×5 (06:58→22:47)
[2020-12-04] MEDS ORDERED: METHADONE HCL 10 MG TABLET (FOR DETOX USE ONLY) ONE (09:54)
[2020-12-04] MEDS ORDERED: METHADONE HCL 5 MG TABLET (FOR DETOX USE ONLY) ONE (09:54)
[2020-12-04] MEDS ORDERED: METHADONE (DETOX) 20 MG, METHADONE (DETOX) 5 MG PO ONE (10:00)
[2020-12-04] MEDS: NICOTINE 21 MG/24 HOURS TOPICAL PATCH TD SCH (10:26)
[2020-12-04] MEDS: PRENATAL VITAMINS W/ FOLIC ACID TABLET (FP) PO SCH (10:26)
[2020-12-04] MEDS: THIAMINE HCL 100 MG TABLET (FP) PO SCH (22:46)
[2020-12-04] MEDS: MELATONIN 5 MG TABLETS PO SCH (22:47)
[2020-12-05] MEDS: hydrOXYzine PAMOATE 25 MG CAPSULE (FP) PO SCH ×5 (06:54→22:30)
[2020-12-05] MEDS: METHOCARBAMOL 500 MG TABLET PO PRN (09:42)
[2020-12-05] MEDS: PRENATAL VITAMINS W/ FOLIC ACID TABLET (FP) PO SCH (09:42)
[2020-12-05] MEDS: NICOTINE 21 MG/24 HOURS TOPICAL PATCH TD SCH (09:44)
[2020-12-05] MEDS ORDERED: PENICILLIN G BENZATHINE 2,400,000 UNIT/4 ML PFS IM ONE (10:00)
[2020-12-05] MEDS ORDERED: METHADONE HCL 10 MG TABLET (FOR DETOX USE ONLY) PO ONE (10:00)
[2020-12-05] MEDS: SUVOREXANT 10 MG TABLET PO PRN (22:30)
[2020-12-05] MEDS: THIAMINE HCL 100 MG TABLET (FP) PO SCH (22:30)
[2020-12-06] MEDS: hydrOXYzine PAMOATE 25 MG CAPSULE (FP) PO SCH ×5 (06:31→22:31)
[2020-12-06] MEDS ORDERED: METHADONE HCL 10 MG TABLET (FOR DETOX USE ONLY) ONE (09:47)
[2020-12-06] MEDS ORDERED: METHADONE HCL 5 MG TABLET (FOR DETOX USE ONLY) ONE (09:47)
[2020-12-06] MEDS ORDERED: METHADONE (DETOX) 10 MG, METHADONE (DETOX) 5 MG PO ONE (10:00)
[2020-12-06] MEDS: PRENATAL VITAMINS W/ FOLIC ACID TABLET (FP) PO SCH (10:19)
[2020-12-06] MEDS: NICOTINE 21 MG/24 HOURS TOPICAL PATCH TD SCH (10:19)
[2020-12-06] MEDS: METHOCARBAMOL 500 MG TABLET PO PRN (10:19)
[2020-12-06] MEDS: SUVOREXANT 10 MG TABLET PO PRN (22:30)
[2020-12-06] MEDS: THIAMINE HCL 100 MG TABLET (FP) PO SCH (22:31)
[2020-12-07] MEDS: hydrOXYzine PAMOATE 25 MG CAPSULE (FP) PO SCH ×5 (06:45→22:40)
[2020-12-07] MEDS ORDERED: METHADONE HCL 10 MG TABLET (FOR DETOX USE ONLY) PO ONE (10:00)
[2020-12-07] MEDS: PRENATAL VITAMINS W/ FOLIC ACID TABLET (FP) PO SCH (10:34)
[2020-12-07] MEDS: METHOCARBAMOL 500 MG TABLET PO PRN (10:34)
[2020-12-07] MEDS: NICOTINE 21 MG/24 HOURS TOPICAL PATCH TD SCH (10:37)
[2020-12-07] MEDS: THIAMINE HCL 100 MG TABLET (FP) PO SCH (22:40)
[2020-12-07] MEDS: SUVOREXANT 10 MG TABLET PO PRN (22:41)
[2020-12-08] MEDS ORDERED: METHADONE HCL 5 MG TABLET (FOR DETOX USE ONLY) PO ONE (06:00)
[2020-12-08] MEDS: hydrOXYzine PAMOATE 25 MG CAPSULE (FP) PO SCH (06:24)
[2020-12-08 08:16] VITALS: BP 139/89; PULSE 54; TEMP 96.8
== END 2020-12-08 10:25 | disposition home or self-care (01) | DRG 773 ==
LOC: YASAS 11:03 → Y6N 14:07
PROVIDERS: ADMIT Allergy & Immunology; ATTEND Allergy & Immunology
PROC: HZ2ZZZZ Detoxification Services for Substance Abuse Treatment (ICD-10-PCS; principal; 2020-12-03)
DX: F11.23 Opioid dependence with withdrawal (principal); F14.20 Cocaine dependence, uncomplicated; F17.210 Nicotine dependence, cigarettes, uncomplicated; F19.282 Other psychoactive substance dependence with psychoactive substance-induced sleep disorder; R74.8 Abnormal levels of other serum enzymes; Z56.0 Unemployment, unspecified
CPT/HCPCS: 36415; 80053; 81025; 85027; 86593; 86780; 87389; C9803; U0003

== ENCOUNTER 2021-06-17 12:25 | Inpatient (IN) | payer OTHER ==
[2021-06-17 15:51] VITALS: BMI 28.6
[2021-06-17] MEDS ORDERED: MAGNESIUM CITRATE 300 ML BOTTLE PO PRN (16:07)
[2021-06-17] MEDS ORDERED: MAGNESIUM HYDROX 2400MG/30ML ORAL SUSPENSION 30 ML CUP PO PRN (16:07)
[2021-06-17] MEDS ORDERED: ONDANSETRON *ODT* 4 MG TABLET SL PRN (16:07)
[2021-06-17] MEDS ORDERED: ACETAMINOPHEN 325 MG TABLET (FP) PO PRN ×2 (16:07)
[2021-06-17] MEDS ORDERED: cloNIDine HCL 0.1 MG TABLET PO PRN (16:07)
[2021-06-17] MEDS ORDERED: BISMUTH SUBSALICYLATE 524 MG/30 ML PO PRN (16:07)
[2021-06-17] MEDS ORDERED: MAG HYDROX/AL HYDROX/SIMETH 30 ML UNIT-DOSE CUP PO PRN (16:07)
[2021-06-17] MEDS ORDERED: clonazePAM 0.5 MG ODT TABLETS SL PRN (16:07)
[2021-06-17] MEDS ORDERED: methaDONE HCL 10 MG TABLET (FOR DETOX USE ONLY) PO ONE (16:07)
[2021-06-17] MEDS ORDERED: IBUPROFEN 400 MG TABLET (FP) PO PRN (16:07)
[2021-06-17] MEDS ORDERED: MENTHOL/PHENOL 1 EACH UD MM PRN (16:07)
[2021-06-17] MEDS: hydrOXYzine PAMOATE 25 MG CAPSULE (FP) PO SCH ×2 (17:24→22:41)
[2021-06-17] MEDS: THIAMINE HCL 100 MG TABLET (FP) PO SCH (22:41)
[2021-06-17] MEDS: MELATONIN 5 MG TABLETS PO SCH (22:41)
[2021-06-18] MEDS: hydrOXYzine PAMOATE 25 MG CAPSULE (FP) PO SCH ×5 (05:39→22:35)
[2021-06-18] MEDS ORDERED: methaDONE HCL 10 MG TABLET (FOR DETOX USE ONLY) ONE (08:58)
[2021-06-18] MEDS: NICOTINE 14 MG/24 HOURS TOPICAL PATCH TD PRN (10:32)
[2021-06-18] MEDS: NICOTINE 10 MG CARTRIDGE (INHALER) IH PRN (11:08)
[2021-06-18 14:35] LABS: HEMATOCRIT 39.1 % (32.4-45.2); HEMOGLOBIN 12.8 GM/dL (10.7-15.3); MCH 28.9 pg (25.7-33.7); MCHC 32.6 g/dl (32.0-36.0); MEAN CELL VOLUME 88.5 fl (80-96); MEAN PLT VOLUME 10.5 fl (7.5-11.1); PLATELET COUNT 171 10^3/uL (134-434); RBC 4.42 M/mm3 (3.60-5.2); WHITE BLOOD COUNT 5.5 K/mm3 (4.0-10.0)
[2021-06-18 14:51] LABS: CALCIUM 9.2 mg/dL (8.5-10.1)
[2021-06-18 14:52] LABS: ALBUMIN 3.3 g/dl (3.4-5.0); BLOOD UREA NITROGEN 15.2 mg/dL (7-18)
[2021-06-18 14:54] LABS: CREATININE 0.8 mg/dL (0.55-1.3)
[2021-06-18 14:56] LABS: BILIRUBIN,TOTAL 0.3 mg/dL (0.2-1); TOT PROT 6.4 g/dl (6.4-8.2)
[2021-06-18] MEDS: THIAMINE HCL 100 MG TABLET (FP) PO SCH (22:34)
[2021-06-18] MEDS: SUVOREXANT 10 MG TABLET PO PRN (22:34)
[2021-06-18] MEDS: MELATONIN 5 MG TABLETS PO SCH (22:35)
[2021-06-19] MEDS: hydrOXYzine PAMOATE 25 MG CAPSULE (FP) PO SCH ×5 (05:38→22:10)
[2021-06-19] MEDS ORDERED: methaDONE HCL 10 MG TABLET (FOR DETOX USE ONLY) PO ONE (10:00)
[2021-06-19] MEDS: METHOCARBAMOL 500 MG TABLET PO PRN (10:05)
[2021-06-19] MEDS ORDERED: PENICILLIN G BENZATHINE 2,400,000 UNIT/4 ML PFS IM ONE (11:14)
[2021-06-19] MEDS: NICOTINE 10 MG CARTRIDGE (INHALER) IH PRN ×3 (11:51→19:49)
[2021-06-19] MEDS: NICOTINE 14 MG/24 HOURS TOPICAL PATCH TD PRN (11:52)
[2021-06-19] MEDS: MELATONIN 5 MG TABLETS PO SCH (22:10)
[2021-06-19] MEDS: THIAMINE HCL 100 MG TABLET (FP) PO SCH (22:10)
[2021-06-19] MEDS: SUVOREXANT 10 MG TABLET PO PRN (22:11)
[2021-06-20] MEDS: hydrOXYzine PAMOATE 25 MG CAPSULE (FP) PO SCH ×5 (06:14→22:22)
[2021-06-20] MEDS: NICOTINE 10 MG CARTRIDGE (INHALER) IH PRN ×4 (06:59→22:22)
[2021-06-20] MEDS ORDERED: methaDONE HCL 10 MG TABLET (FOR DETOX USE ONLY) ONE (09:26)
[2021-06-20] MEDS: METHOCARBAMOL 500 MG TABLET PO PRN (10:23)
[2021-06-20] MEDS: NICOTINE 14 MG/24 HOURS TOPICAL PATCH TD PRN (10:24)
[2021-06-20] MEDS: SUVOREXANT 10 MG TABLET PO PRN (22:21)
[2021-06-20] MEDS: THIAMINE HCL 100 MG TABLET (FP) PO SCH (22:22)
[2021-06-20] MEDS: MELATONIN 5 MG TABLETS PO SCH (22:22)
[2021-06-21] MEDS: hydrOXYzine PAMOATE 25 MG CAPSULE (FP) PO SCH ×5 (05:38→22:41)
[2021-06-21] MEDS: NICOTINE 10 MG CARTRIDGE (INHALER) IH PRN ×5 (05:38→22:41)
[2021-06-21] MEDS ORDERED: methaDONE HCL 10 MG TABLET (FOR DETOX USE ONLY) PO ONE (10:00)
[2021-06-21] MEDS: NICOTINE 14 MG/24 HOURS TOPICAL PATCH TD PRN (10:30)
[2021-06-21] MEDS: METHOCARBAMOL 500 MG TABLET PO PRN (10:31)
[2021-06-21] MEDS: THIAMINE HCL 100 MG TABLET (FP) PO SCH (22:41)
[2021-06-21] MEDS: SUVOREXANT 10 MG TABLET PO PRN (22:42)
[2021-06-21] MEDS: MELATONIN 5 MG TABLETS PO SCH (22:42)
[2021-06-22] MEDS: hydrOXYzine PAMOATE 25 MG CAPSULE (FP) PO SCH (05:43)
[2021-06-22] MEDS: NICOTINE 10 MG CARTRIDGE (INHALER) IH PRN ×2 (05:44→09:37)
[2021-06-22 09:22] VITALS: BP 118/71; PULSE 81; TEMP 96.4
== END 2021-06-22 10:03 | disposition home or self-care (01) | DRG 773 ==
LOC: YASAS 12:25 → Y6N 16:54
PROVIDERS: ADMIT Allergy & Immunology; ATTEND Allergy & Immunology
PROC: HZ2ZZZZ Detoxification Services for Substance Abuse Treatment (ICD-10-PCS; principal; 2021-06-17)
DX: F11.23 Opioid dependence with withdrawal (principal); F14.20 Cocaine dependence, uncomplicated; F17.213 Nicotine dependence, cigarettes, with withdrawal; F19.24 Other psychoactive substance dependence with psychoactive substance-induced mood disorder; R74.01 Elevation of levels of liver transaminase levels; Z62.810 Personal history of physical and sexual abuse in childhood; Z86.19 Personal history of other infectious and parasitic diseases; Z56.0 Unemployment, unspecified
CPT/HCPCS: 36415; 80053; 81025; 85027; 86593; 86780; C9803; U0003; U0005

== ENCOUNTER 2022-01-24 11:21 | Inpatient (IN) | payer OTHER ==
[2022-01-24 11:54] VITALS: BMI 32.2
[2022-01-24] MEDS ORDERED: BENZOCAINE/MENTHOL (CHLORASEPTIC ) LOZENGE MM PRN (13:35)
[2022-01-24] MEDS ORDERED: MAGNESIUM HYDROX 2400MG/30ML ORAL SUSPENSION 30 ML CUP PO PRN (13:35)
[2022-01-24] MEDS ORDERED: ACETAMINOPHEN 325 MG TABLET (FP) PO PRN ×2 (13:35)
[2022-01-24] MEDS ORDERED: ONDANSETRON *ODT* 4 MG TABLET SL PRN (13:35)
[2022-01-24] MEDS ORDERED: BISMUTH SUBSALICYLATE 524 MG/30 ML PO PRN (13:35)
[2022-01-24] MEDS ORDERED: cloNIDine HCL 0.1 MG TABLET PO PRN (13:35)
[2022-01-24] MEDS ORDERED: MAGNESIUM CITRATE 300 ML BOTTLE PO PRN (13:35)
[2022-01-24] MEDS ORDERED: IBUPROFEN 400 MG TABLET (FP) PO PRN (13:35)
[2022-01-24] MEDS ORDERED: LOPERAMIDE HCL 2 MG CAPSULE PO PRN (13:35)
[2022-01-24] MEDS ORDERED: MAG HYDROX/AL HYDROX/SIMETH 30 ML UNIT-DOSE CUP PO PRN (13:35)
[2022-01-24] MEDS ORDERED: DICYCLOMINE HCL 10 MG CAPSULE PO PRN (13:35)
[2022-01-24] MEDS ORDERED: methaDONE HCL 10 MG TABLET (FOR DETOX USE ONLY) PO ONE (14:00)
[2022-01-24] MEDS: hydrOXYzine PAMOATE 25 MG CAPSULE (FP) PO SCH ×3 (14:29→22:28)
[2022-01-24] MEDS: NICOTINE 14 MG/24 HOURS TOPICAL PATCH TD SCH (14:29)
[2022-01-24] MEDS: PRENATAL VITAMINS W/ FOLIC ACID TABLET (FP) PO SCH (14:29)
[2022-01-24] MEDS: NICOTINE 10 MG CARTRIDGE (INHALER) IH PRN ×2 (14:33→22:28)
[2022-01-24 17:10] LABS: HEMATOCRIT 36.9 % (32.4-45.2); HEMOGLOBIN 12.2 GM/dL (10.7-15.3); MCH 28.6 pg (25.7-33.7); MCHC 33.1 g/dl (32.0-36.0); MEAN CELL VOLUME 86.3 fl (80-96); MEAN PLT VOLUME 9.9 fl (7.5-11.1); PLATELET COUNT 185 10^3/uL (134-434); RBC 4.27 M/mm3 (3.60-5.2); RDW 15.2 % (11.6-15.6); WHITE BLOOD COUNT 4.4 K/mm3 (4.0-10.0)
[2022-01-24 17:21] LABS: ALBUMIN 3.5 g/dl (3.4-5.0); BLOOD UREA NITROGEN 12.8 mg/dL (7-18); CALCIUM 9.2 mg/dL (8.5-10.1)
[2022-01-24 17:24] LABS: CREATININE 0.9 mg/dL (0.55-1.3)
[2022-01-24 17:25] LABS: BILIRUBIN,TOTAL 0.2 mg/dL (0.2-1)
[2022-01-24 17:26] LABS: TOT PROT 6.5 g/dl (6.4-8.2)
[2022-01-24] MEDS: MELATONIN 5 MG TABLETS PO SCH (22:28)
[2022-01-24] MEDS: THIAMINE HCL 100 MG TABLET (FP) PO SCH (22:28)
[2022-01-25] MEDS: hydrOXYzine PAMOATE 25 MG CAPSULE (FP) PO SCH ×5 (06:57→22:12)
[2022-01-25] MEDS ORDERED: NALOXONE HCL (KLOXXADO) 8 MG SPRAY NS PRN (08:41)
[2022-01-25] MEDS ORDERED: methaDONE HCL 10 MG TABLET (FOR DETOX USE ONLY) ONE (09:12)
[2022-01-25] MEDS: NICOTINE 14 MG/24 HOURS TOPICAL PATCH TD SCH (10:14)
[2022-01-25] MEDS: NICOTINE 10 MG CARTRIDGE (INHALER) IH PRN ×3 (10:14→22:13)
[2022-01-25] MEDS: PRENATAL VITAMINS W/ FOLIC ACID TABLET (FP) PO SCH (10:17)
[2022-01-25] MEDS: MELATONIN 5 MG TABLETS PO SCH (22:12)
[2022-01-25] MEDS: THIAMINE HCL 100 MG TABLET (FP) PO SCH (22:12)
[2022-01-25] MEDS: METHOCARBAMOL 500 MG TABLET PO PRN (22:12)
[2022-01-26] MEDS: hydrOXYzine PAMOATE 25 MG CAPSULE (FP) PO SCH ×5 (05:24→22:13)
[2022-01-26] MEDS ORDERED: methaDONE HCL 10 MG TABLET (FOR DETOX USE ONLY) PO ONE (10:00)
[2022-01-26] MEDS: PRENATAL VITAMINS W/ FOLIC ACID TABLET (FP) PO SCH (10:08)
[2022-01-26] MEDS: NICOTINE 14 MG/24 HOURS TOPICAL PATCH TD SCH (10:09)
[2022-01-26 14:09] LABS: SARS-CoV-2 NAA Not Detected (Not Detected)
[2022-01-26] MEDS: NICOTINE 10 MG CARTRIDGE (INHALER) IH PRN ×2 (18:31→22:13)
[2022-01-26] MEDS: THIAMINE HCL 100 MG TABLET (FP) PO SCH (22:13)
[2022-01-26] MEDS: SUVOREXANT 10 MG TABLET PO PRN (22:13)
[2022-01-26] MEDS: MELATONIN 5 MG TABLETS PO SCH (22:13)
[2022-01-27] MEDS: NICOTINE 10 MG CARTRIDGE (INHALER) IH PRN ×5 (06:09→22:40)
[2022-01-27] MEDS: hydrOXYzine PAMOATE 25 MG CAPSULE (FP) PO SCH ×5 (06:09→22:38)
[2022-01-27] MEDS ORDERED: methaDONE HCL 10 MG TABLET (FOR DETOX USE ONLY) ONE (09:20)
[2022-01-27] MEDS: PRENATAL VITAMINS W/ FOLIC ACID TABLET (FP) PO SCH (10:17)
[2022-01-27] MEDS: NICOTINE 14 MG/24 HOURS TOPICAL PATCH TD SCH (10:20)
[2022-01-27] MEDS: THIAMINE HCL 100 MG TABLET (FP) PO SCH (22:38)
[2022-01-27] MEDS: MELATONIN 5 MG TABLETS PO SCH (22:38)
[2022-01-27] MEDS: SUVOREXANT 10 MG TABLET PO PRN (22:39)
[2022-01-28] MEDS: hydrOXYzine PAMOATE 25 MG CAPSULE (FP) PO SCH ×7 (07:27→22:34)
[2022-01-28] MEDS: NICOTINE 10 MG CARTRIDGE (INHALER) IH PRN ×5 (07:40→22:34)
[2022-01-28] MEDS ORDERED: methaDONE HCL 10 MG TABLET (FOR DETOX USE ONLY) PO ONE (10:00)
[2022-01-28] MEDS: PRENATAL VITAMINS W/ FOLIC ACID TABLET (FP) PO SCH (10:33)
[2022-01-28] MEDS: NICOTINE 14 MG/24 HOURS TOPICAL PATCH TD SCH (10:34)
[2022-01-28] MEDS: SUVOREXANT 10 MG TABLET PO PRN (22:34)
[2022-01-28] MEDS: MELATONIN 5 MG TABLETS PO SCH (22:34)
[2022-01-28] MEDS: THIAMINE HCL 100 MG TABLET (FP) PO SCH (22:34)
[2022-01-28] MEDS: METHOCARBAMOL 500 MG TABLET PO PRN (22:34)
[2022-01-29] MEDS: hydrOXYzine PAMOATE 25 MG CAPSULE (FP) PO SCH ×2 (06:05→11:44)
[2022-01-29] MEDS: NICOTINE 10 MG CARTRIDGE (INHALER) IH PRN (06:06)
[2022-01-29] MEDS: METHOCARBAMOL 500 MG TABLET PO PRN (08:04)
[2022-01-29 09:51] VITALS: BP 131/87; PULSE 85; TEMP 97.3
[2022-01-29] MEDS: PRENATAL VITAMINS W/ FOLIC ACID TABLET (FP) PO SCH (11:44)
[2022-01-29] MEDS: NICOTINE 14 MG/24 HOURS TOPICAL PATCH TD SCH (11:44)
== END 2022-01-29 09:12 | disposition home or self-care (01) | DRG 773 ==
LOC: YASAS 11:21 → Y3N 13:09
PROVIDERS: ADMIT Allergy & Immunology; ATTEND Allergy & Immunology
PROC: HZ2ZZZZ Detoxification Services for Substance Abuse Treatment (ICD-10-PCS; principal; 2022-01-24)
DX: F11.23 Opioid dependence with withdrawal (principal); F14.20 Cocaine dependence, uncomplicated; F17.210 Nicotine dependence, cigarettes, uncomplicated; G47.00 Insomnia, unspecified; Z86.19 Personal history of other infectious and parasitic diseases
CPT/HCPCS: 36415; 80053; 85027; 86593; 86780; 87811; C9803-CS; J0735; U0003; U0005

== ENCOUNTER 2022-06-13 11:15 | Inpatient (IN) | payer OTHER ==
[2022-06-13 12:30] VITALS: BMI 29.2
[2022-06-13] MEDS ORDERED: IBUPROFEN 600 MG TABLET (FP) PO PRN (13:23)
[2022-06-13] MEDS ORDERED: BENZOCAINE/MENTHOL (CHLORASEPTIC ) LOZENGE MM PRN (13:23)
[2022-06-13] MEDS ORDERED: ONDANSETRON *ODT* 4 MG TABLET SL PRN (13:23)
[2022-06-13] MEDS ORDERED: methaDONE HCL 10 MG TABLET (FOR DETOX USE ONLY) PO ONE (13:23)
[2022-06-13] MEDS ORDERED: NALOXONE HCL (KLOXXADO) 8 MG SPRAY NS PRN (13:23)
[2022-06-13] MEDS ORDERED: ACETAMINOPHEN 325 MG TABLET (FP) PO PRN ×2 (13:23)
[2022-06-13] MEDS ORDERED: MAGNESIUM HYDROX 2400MG/30ML ORAL SUSPENSION 30 ML CUP PO PRN (13:23)
[2022-06-13] MEDS ORDERED: IBUPROFEN 400 MG TABLET (FP) PO PRN (13:23)
[2022-06-13] MEDS ORDERED: MAG HYDROX/AL HYDROX/SIMETH 30 ML UNIT-DOSE CUP PO PRN (13:23)
[2022-06-13] MEDS ORDERED: LOPERAMIDE HCL 2 MG CAPSULE PO PRN (13:23)
[2022-06-13] MEDS ORDERED: DICYCLOMINE HCL 10 MG CAPSULE PO PRN (13:23)
[2022-06-13] MEDS ORDERED: MAGNESIUM CITRATE 300 ML BOTTLE PO PRN (13:23)
[2022-06-13] MEDS ORDERED: BISMUTH SUBSALICYLATE 524 MG/30 ML PO PRN (13:23)
[2022-06-13] MEDS ORDERED: NICOTINE 21 MG/24 HOURS TOPICAL PATCH TD SCH (13:30)
[2022-06-13] MEDS: NICOTINE 21 MG/24 HOURS TOPICAL PATCH TD SCH (13:59)
[2022-06-13] MEDS: cloNIDine HCL 0.1 MG TABLET PO PRN (14:04)
[2022-06-13] MEDS: NICOTINE 10 MG CARTRIDGE (INHALER) IH PRN (14:04)
[2022-06-13] MEDS: hydrOXYzine PAMOATE 25 MG CAPSULE (FP) PO SCH ×3 (14:04→23:26)
[2022-06-13] MEDS: THIAMINE HCL 100 MG TABLET (FP) PO SCH (23:26)
[2022-06-13] MEDS: MELATONIN 5 MG TABLETS PO SCH (23:26)
[2022-06-14] MEDS: hydrOXYzine PAMOATE 25 MG CAPSULE (FP) PO SCH ×6 (06:58→23:03)
[2022-06-14] MEDS: PRENATAL VITAMINS W/ FOLIC ACID TABLET (FP) PO SCH (10:57)
[2022-06-14] MEDS: METHOCARBAMOL 500 MG TABLET PO PRN (10:57)
[2022-06-14] MEDS: NICOTINE 10 MG CARTRIDGE (INHALER) IH PRN (10:59)
[2022-06-14] MEDS: NICOTINE 21 MG/24 HOURS TOPICAL PATCH TD SCH (11:00)
[2022-06-14 12:52] LABS: HEMATOCRIT 42.6 % (32.4-45.2); HEMOGLOBIN 13.8 GM/dL (10.7-15.3); MCH 28.3 pg (25.7-33.7); MCHC 32.5 g/dl (32.0-36.0); MEAN CELL VOLUME 87.2 fl (80-96); MEAN PLT VOLUME 10.5 fl (7.5-11.1); PLATELET COUNT 212 10^3/uL (134-434); RBC 4.89 M/mm3 (3.60-5.2); WHITE BLOOD COUNT 4.8 K/mm3 (4.0-10.0)
[2022-06-14 13:03] LABS: ALBUMIN 3.7 g/dl (3.4-5.0); BLOOD UREA NITROGEN 8.3 mg/dL (7-18); CREATININE 0.8 mg/dL (0.55-1.3)
[2022-06-14 13:05] LABS: BILIRUBIN,TOTAL 0.3 mg/dL (0.2-1); TOT PROT 7.1 g/dl (6.4-8.2)
[2022-06-14 13:55] LABS: HIV INTERPRETATION NEGATIVE (NEGATIVE)
[2022-06-14] MEDS: MELATONIN 5 MG TABLETS PO SCH (23:03)
[2022-06-14] MEDS: THIAMINE HCL 100 MG TABLET (FP) PO SCH (23:03)
[2022-06-15] MEDS: hydrOXYzine PAMOATE 25 MG CAPSULE (FP) PO SCH ×5 (07:17→22:41)
[2022-06-15] MEDS ORDERED: methaDONE HCL 10 MG TABLET (FOR DETOX USE ONLY) PO ONE (10:00)
[2022-06-15] MEDS: METHOCARBAMOL 500 MG TABLET PO PRN (10:57)
[2022-06-15] MEDS: NICOTINE 21 MG/24 HOURS TOPICAL PATCH TD SCH (10:57)
[2022-06-15] MEDS: PRENATAL VITAMINS W/ FOLIC ACID TABLET (FP) PO SCH (10:59)
[2022-06-15] MEDS: NICOTINE 10 MG CARTRIDGE (INHALER) IH PRN ×3 (10:59→22:43)
[2022-06-15] MEDS ORDERED: QUEtiapine FUMARATE 50 MG TABLET PO SCH (22:00)
[2022-06-15] MEDS ORDERED: SUVOREXANT 5 MG TABLET PO PRN (22:00)
[2022-06-15] MEDS: THIAMINE HCL 100 MG TABLET (FP) PO SCH (22:41)
[2022-06-15] MEDS: SUVOREXANT 10 MG TABLET PO PRN (22:42)
[2022-06-15] MEDS: cloNIDine HCL 0.1 MG TABLET PO PRN (22:42)
[2022-06-16] MEDS: hydrOXYzine PAMOATE 25 MG CAPSULE (FP) PO SCH ×5 (06:51→22:06)
[2022-06-16] MEDS: NICOTINE 10 MG CARTRIDGE (INHALER) IH PRN ×4 (09:40→22:07)
[2022-06-16] MEDS: NICOTINE 21 MG/24 HOURS TOPICAL PATCH TD SCH (09:41)
[2022-06-16] MEDS: PRENATAL VITAMINS W/ FOLIC ACID TABLET (FP) PO SCH (09:41)
[2022-06-16] MEDS: METHOCARBAMOL 500 MG TABLET PO PRN (12:21)
[2022-06-16] MEDS: SUVOREXANT 10 MG TABLET PO PRN (22:06)
[2022-06-16] MEDS: THIAMINE HCL 100 MG TABLET (FP) PO SCH (22:07)
[2022-06-17] MEDS: hydrOXYzine PAMOATE 25 MG CAPSULE (FP) PO SCH ×5 (07:44→22:09)
[2022-06-17] MEDS ORDERED: methaDONE HCL 10 MG TABLET (FOR DETOX USE ONLY) PO ONE (10:00)
[2022-06-17] MEDS: PRENATAL VITAMINS W/ FOLIC ACID TABLET (FP) PO SCH (10:22)
[2022-06-17] MEDS: METHOCARBAMOL 500 MG TABLET PO PRN (10:23)
[2022-06-17] MEDS: NICOTINE 21 MG/24 HOURS TOPICAL PATCH TD SCH (10:23)
[2022-06-17] MEDS: NICOTINE 10 MG CARTRIDGE (INHALER) IH PRN ×4 (10:25→22:10)
[2022-06-17 12:48] VITALS: RESP 18
[2022-06-17] MEDS: SUVOREXANT 10 MG TABLET PO PRN (22:09)
[2022-06-17] MEDS: THIAMINE HCL 100 MG TABLET (FP) PO SCH (22:09)
[2022-06-18] MEDS: hydrOXYzine PAMOATE 25 MG CAPSULE (FP) PO SCH ×2 (05:55→09:15)
[2022-06-18] MEDS: NICOTINE 10 MG CARTRIDGE (INHALER) IH PRN (08:52)
[2022-06-18] MEDS: NICOTINE 21 MG/24 HOURS TOPICAL PATCH TD SCH (09:15)
[2022-06-18] MEDS: PRENATAL VITAMINS W/ FOLIC ACID TABLET (FP) PO SCH (09:15)
[2022-06-18 09:18] VITALS: BP 106/79; PULSE 74; TEMP 97.7
== END 2022-06-18 09:55 | disposition home or self-care (01) | DRG 774 ==
LOC: YASAS 11:15 → Y3N 13:32
PROVIDERS: ADMIT Allergy & Immunology; ATTEND Surgery
PROC: HZ2ZZZZ Detoxification Services for Substance Abuse Treatment (ICD-10-PCS; principal; 2022-06-13)
DX: F10.230 Alcohol dependence with withdrawal, uncomplicated (principal); F14.20 Cocaine dependence, uncomplicated; F12.20 Cannabis dependence, uncomplicated; F17.213 Nicotine dependence, cigarettes, with withdrawal; G47.00 Insomnia, unspecified; Z86.19 Personal history of other infectious and parasitic diseases
CPT/HCPCS: 36415; 80053; 85027; 86593; 86780; 87389; 93005; 93010; C9803-CS; U0003; U0005

== ENCOUNTER 2022-10-31 15:49 | Inpatient (IN) | payer OTHER ==
[2022-10-31 17:45] VITALS: BMI 29.5
[2022-10-31] MEDS ORDERED: IBUPROFEN 400 MG TABLET (FP) PO PRN (18:10)
[2022-10-31] MEDS ORDERED: MAG HYDROX/AL HYDROX/SIMETH 30 ML UNIT-DOSE CUP PO PRN (18:10)
[2022-10-31] MEDS ORDERED: P-EPHED 60MG/TRIPROLIDI 2.5MG TABLET PO PRN (18:10)
[2022-10-31] MEDS ORDERED: IBUPROFEN 600 MG TABLET (FP) PO PRN (18:10)
[2022-10-31] MEDS ORDERED: ACETAMINOPHEN 325 MG TABLET (FP) PO PRN ×2 (18:10)
[2022-10-31] MEDS ORDERED: LOPERAMIDE HCL 2 MG CAPSULE PO PRN (18:10)
[2022-10-31] MEDS ORDERED: MAGNESIUM HYDROX 2400MG/30ML ORAL SUSPENSION 30 ML CUP PO PRN (18:10)
[2022-10-31] MEDS ORDERED: DICYCLOMINE HCL 10 MG CAPSULE PO PRN (18:10)
[2022-10-31] MEDS ORDERED: BENZOCAINE/MENTHOL (CHLORASEPTIC ) LOZENGE MM PRN (18:10)
[2022-10-31] MEDS ORDERED: BISMUTH SUBSALICYLATE 524 MG/30 ML PO PRN (18:10)
[2022-10-31] MEDS ORDERED: NALOXONE HCL (KLOXXADO) 8 MG SPRAY NS PRN (18:10)
[2022-10-31] MEDS ORDERED: POLYETHYLENE GLYCOL (HEALTHYLAX) 3350 17 GM PACKET PO PRN (18:10)
[2022-10-31] MEDS ORDERED: ONDANSETRON *ODT* 4 MG TABLET SL PRN (18:10)
[2022-10-31] MEDS ORDERED: guaiFENesin 200 MG/10 ML 10 ML UNIT-DOSE CUPS PO PRN (18:10)
[2022-10-31] MEDS: METHOCARBAMOL 500 MG TABLET PO PRN (22:27)
[2022-10-31] MEDS: hydrOXYzine PAMOATE 25 MG CAPSULE (FP) PO PRN (22:28)
[2022-10-31] MEDS: THIAMINE HCL 100 MG TABLET (FP) PO SCH (22:28)
[2022-10-31] MEDS: MELATONIN 5 MG TABLETS PO SCH (22:28)
[2022-10-31] MEDS: NICOTINE 10 MG CARTRIDGE (INHALER) IH PRN (22:29)
[2022-11-01] MEDS ORDERED: methaDONE HCL 10 MG TABLET (FOR DETOX USE ONLY) PO ONE (09:15)
[2022-11-01] MEDS: METHOCARBAMOL 500 MG TABLET PO PRN ×2 (10:17→22:10)
[2022-11-01] MEDS: PRENATAL VITAMINS W/ FOLIC ACID TABLET (FP) PO SCH (10:18)
[2022-11-01 10:45] LABS: HEMATOCRIT 37.2 % (32.4-45.2); HEMOGLOBIN 12.4 GM/dL (10.7-15.3); MCH 29.3 pg (25.7-33.7); MCHC 33.3 g/dl (32.0-36.0); MEAN CELL VOLUME 88.1 fl (80-96); MEAN PLT VOLUME 9.9 fl (7.5-11.1); PLATELET COUNT 163 10^3/uL (134-434); RBC 4.23 M/mm3 (3.60-5.2); RDW 14.9 % (11.6-15.6); WHITE BLOOD COUNT 4.9 K/mm3 (4.0-10.0)
[2022-11-01 11:38] LABS: ALBUMIN 3.2 g/dl (3.4-5.0); BLOOD UREA NITROGEN 13.7 mg/dL (7-18); CREATININE 0.6 mg/dL (0.55-1.3)
[2022-11-01 11:40] LABS: BILIRUBIN,TOTAL 0.2 mg/dL (0.2-1)
[2022-11-01 11:42] LABS: CALCIUM 9.1 mg/dL (8.5-10.1)
[2022-11-01] MEDS: cloNIDine HCL 0.1 MG TABLET PO PRN (17:28)
[2022-11-01] MEDS: NICOTINE 10 MG CARTRIDGE (INHALER) IH PRN (17:29)
[2022-11-01] MEDS: hydrOXYzine PAMOATE 25 MG CAPSULE (FP) PO PRN (17:29)
[2022-11-01] MEDS: QUEtiapine FUMARATE 50 MG TABLET PO SCH (22:10)
[2022-11-01] MEDS: MELATONIN 5 MG TABLETS PO SCH (22:10)
[2022-11-01] MEDS: THIAMINE HCL 100 MG TABLET (FP) PO SCH (22:10)
[2022-11-02] MEDS: hydrOXYzine PAMOATE 25 MG CAPSULE (FP) PO PRN (10:27)
[2022-11-02] MEDS: PRENATAL VITAMINS W/ FOLIC ACID TABLET (FP) PO SCH (10:27)
[2022-11-02] MEDS: NICOTINE 10 MG CARTRIDGE (INHALER) IH PRN ×2 (13:37→21:14)
[2022-11-02] MEDS: MELATONIN 5 MG TABLETS PO SCH (21:13)
[2022-11-02] MEDS: THIAMINE HCL 100 MG TABLET (FP) PO SCH (21:14)
[2022-11-02] MEDS: cloNIDine HCL 0.1 MG TABLET PO PRN (21:14)
[2022-11-02] MEDS: QUEtiapine FUMARATE 50 MG TABLET PO SCH (21:14)
[2022-11-02] MEDS: METHOCARBAMOL 500 MG TABLET PO PRN (21:15)
[2022-11-03] MEDS: hydrOXYzine PAMOATE 25 MG CAPSULE (FP) PO PRN ×2 (05:23→15:31)
[2022-11-03] MEDS: NICOTINE 10 MG CARTRIDGE (INHALER) IH PRN ×3 (05:23→21:47)
[2022-11-03] MEDS ORDERED: methaDONE HCL 10 MG TABLET (FOR DETOX USE ONLY) PO ONE (10:00)
[2022-11-03] MEDS: PRENATAL VITAMINS W/ FOLIC ACID TABLET (FP) PO SCH (10:17)
[2022-11-03] MEDS: cloNIDine HCL 0.1 MG TABLET PO PRN (18:05)
[2022-11-03] MEDS: METHOCARBAMOL 500 MG TABLET PO PRN (18:05)
[2022-11-03] MEDS: QUEtiapine FUMARATE 50 MG TABLET PO SCH (21:46)
[2022-11-03] MEDS: THIAMINE HCL 100 MG TABLET (FP) PO SCH (21:46)
[2022-11-03] MEDS: MELATONIN 5 MG TABLETS PO SCH (21:46)
[2022-11-04] MEDS: hydrOXYzine PAMOATE 25 MG CAPSULE (FP) PO PRN ×3 (04:11→19:56)
[2022-11-04] MEDS: NICOTINE 10 MG CARTRIDGE (INHALER) IH PRN ×4 (04:12→19:56)
[2022-11-04] MEDS: PRENATAL VITAMINS W/ FOLIC ACID TABLET (FP) PO SCH (10:25)
[2022-11-04] MEDS: METHOCARBAMOL 500 MG TABLET PO PRN ×2 (10:25→21:36)
[2022-11-04] MEDS: THIAMINE HCL 100 MG TABLET (FP) PO SCH (21:36)
[2022-11-04] MEDS: QUEtiapine FUMARATE 50 MG TABLET PO SCH (21:36)
[2022-11-04] MEDS: MELATONIN 5 MG TABLETS PO SCH (21:36)
[2022-11-05] MEDS: hydrOXYzine PAMOATE 25 MG CAPSULE (FP) PO PRN ×3 (05:39→21:01)
[2022-11-05] MEDS: PRENATAL VITAMINS W/ FOLIC ACID TABLET (FP) PO SCH (09:59)
[2022-11-05] MEDS ORDERED: methaDONE HCL 10 MG TABLET (FOR DETOX USE ONLY) PO ONE (10:00)
[2022-11-05] MEDS: NICOTINE 10 MG CARTRIDGE (INHALER) IH PRN ×2 (12:25→16:43)
[2022-11-05] MEDS: METHOCARBAMOL 500 MG TABLET PO PRN (21:01)
[2022-11-05] MEDS: THIAMINE HCL 100 MG TABLET (FP) PO SCH (21:01)
[2022-11-05] MEDS: QUEtiapine FUMARATE 50 MG TABLET PO SCH (21:01)
[2022-11-05] MEDS: MELATONIN 5 MG TABLETS PO SCH (21:02)
[2022-11-06] MEDS: NICOTINE 10 MG CARTRIDGE (INHALER) IH PRN ×2 (05:08→08:51)
[2022-11-06] MEDS: hydrOXYzine PAMOATE 25 MG CAPSULE (FP) PO PRN (05:08)
[2022-11-06 06:31] VITALS: RESP 17
[2022-11-06 08:56] VITALS: BP 135/86; PULSE 96; TEMP 96.3
[2022-11-06] MEDS: PRENATAL VITAMINS W/ FOLIC ACID TABLET (FP) PO SCH (09:25)
== END 2022-11-06 09:34 | disposition home or self-care (01) | DRG 773 ==
LOC: YASAS 15:49 → Y3N 18:32
PROVIDERS: ADMIT Allergy & Immunology; ATTEND Surgery
PROC: HZ2ZZZZ Detoxification Services for Substance Abuse Treatment (ICD-10-PCS; principal; 2022-10-31)
DX: F11.23 Opioid dependence with withdrawal (principal); F14.20 Cocaine dependence, uncomplicated; F12.20 Cannabis dependence, uncomplicated; F17.210 Nicotine dependence, cigarettes, uncomplicated; Z86.19 Personal history of other infectious and parasitic diseases
CPT/HCPCS: 36415; 80053; 81025; 85027; 86593; 86780; C9803-CS; U0003; U0005

== ENCOUNTER 2023-05-03 12:29 | Inpatient (IN) | payer OTHER ==
[2023-05-03 13:15] VITALS: BMI 27.7
[2023-05-03] MEDS ORDERED: NALOXONE HCL 0.4 MG/ML VIAL IM PRN (13:48)
[2023-05-03] MEDS ORDERED: guaiFENesin 600 MG TABLET.ER (FP) PO PRN (13:48)
[2023-05-03] MEDS ORDERED: MAGNESIUM HYDROX 2400MG/30ML ORAL SUSPENSION 30 ML CUP PO PRN (13:48)
[2023-05-03] MEDS ORDERED: LOPERAMIDE HCL 2 MG CAPSULE PO PRN (13:48)
[2023-05-03] MEDS ORDERED: NICOTINE POLACRILEX 2 MG GUM BUC PRN (13:48)
[2023-05-03] MEDS ORDERED: ACETAMINOPHEN 325 MG TABLET (FP) PO PRN (13:48)
[2023-05-03] MEDS ORDERED: BENZONATATE 200 MG CAPSULE PO PRN (13:48)
[2023-05-03] MEDS ORDERED: IBUPROFEN 600 MG TABLET (FP) PO PRN (13:48)
[2023-05-03] MEDS ORDERED: POLYETHYLENE GLYCOL (HEALTHYLAX) 3350 17 GM PACKET PO PRN (13:48)
[2023-05-03] MEDS ORDERED: BENZOCAINE/MENTHOL (CHLORASEPTIC ) LOZENGE MM PRN (13:48)
[2023-05-03] MEDS ORDERED: MAG HYDROX/AL HYDROX/SIMETH 30 ML UNIT-DOSE CUP PO PRN (13:48)
[2023-05-03] MEDS ORDERED: NALOXONE HCL (KLOXXADO) 8 MG SPRAY NS PRN (13:48)
[2023-05-03] MEDS ORDERED: IBUPROFEN 400 MG TABLET (FP) PO PRN (13:48)
[2023-05-03] MEDS ORDERED: ONDANSETRON *ODT* 4 MG TABLET SL PRN (13:48)
[2023-05-03] MEDS ORDERED: BISMUTH SUBSALICYLATE 262 MG/15 ML BTL PO PRN (13:48)
[2023-05-03] MEDS ORDERED: cloNIDine HCL 0.1 MG TABLET PO PRN (13:52)
[2023-05-03] MEDS ORDERED: methaDONE HCL 10 MG TABLET (FOR DETOX USE ONLY) PO ONE (13:52)
[2023-05-03] MEDS ORDERED: methaDONE HCL 10 MG TABLET (FOR DETOX USE ONLY) ONE (15:22)
[2023-05-03] MEDS: MELATONIN 5 MG TABLETS PO SCH (23:41)
[2023-05-03] MEDS: THIAMINE HCL 100 MG TABLET (FP) PO SCH (23:42)
[2023-05-04] MEDS: PRENATAL VITAMINS W/ FOLIC ACID TABLET (FP) PO SCH (10:07)
[2023-05-04] MEDS: NICOTINE 14 MG/24 HOURS TOPICAL PATCH TD SCH (10:07)
[2023-05-04 12:02] LABS: HEMATOCRIT 38.2 % (32.4-45.2); HEMOGLOBIN 12.5 GM/dL (10.7-15.3); MCH 28.8 pg (25.7-33.7); MCHC 32.7 g/dl (32.0-36.0); MEAN CELL VOLUME 88.1 fl (80-96); MEAN PLT VOLUME 10.5 fl (7.5-11.1); PLATELET COUNT 169 10^3/uL (134-434); RBC 4.34 M/mm3 (3.60-5.2); RDW 14.8 % (11.6-15.6); WHITE BLOOD COUNT 4.1 K/mm3 (4.0-10.0)
[2023-05-04 12:10] LABS: POTASSIUM 4.2 mmol/L (3.5-5.1)
[2023-05-04 12:18] LABS: ALBUMIN 3.8 g/dl (3.4-5.0); BLOOD UREA NITROGEN 9.6 mg/dL (7-18); CALCIUM 8.7 mg/dL (8.5-10.1)
[2023-05-04 12:21] LABS: CREATININE 0.9 mg/dL (0.55-1.3)
[2023-05-04 12:22] LABS: BILIRUBIN,TOTAL 0.3 mg/dL (0.2-1)
[2023-05-04 13:12] LABS: HIV INTERPRETATION NEGATIVE (NEGATIVE)
[2023-05-04] MEDS: MELATONIN 5 MG TABLETS PO SCH (22:30)
[2023-05-04] MEDS: THIAMINE HCL 100 MG TABLET (FP) PO SCH (22:30)
[2023-05-05] MEDS ORDERED: methaDONE HCL 10 MG TABLET (FOR DETOX USE ONLY) PO ONE (10:00)
[2023-05-05] MEDS: PRENATAL VITAMINS W/ FOLIC ACID TABLET (FP) PO SCH (10:31)
[2023-05-05] MEDS: NICOTINE 14 MG/24 HOURS TOPICAL PATCH TD SCH (10:32)
[2023-05-05] MEDS: THIAMINE HCL 100 MG TABLET (FP) PO SCH (23:04)
[2023-05-05] MEDS: MELATONIN 5 MG TABLETS PO SCH (23:04)
[2023-05-06] MEDS: hydrOXYzine PAMOATE 25 MG CAPSULE (FP) PO PRN ×2 (06:47→20:12)
[2023-05-06] MEDS: PRENATAL VITAMINS W/ FOLIC ACID TABLET (FP) PO SCH (10:23)
[2023-05-06] MEDS: NICOTINE 14 MG/24 HOURS TOPICAL PATCH TD SCH (10:24)
[2023-05-06] MEDS: MELATONIN 5 MG TABLETS PO SCH (22:13)
[2023-05-06] MEDS: THIAMINE HCL 100 MG TABLET (FP) PO SCH (22:13)
[2023-05-07] MEDS ORDERED: methaDONE HCL 10 MG TABLET (FOR DETOX USE ONLY) PO ONE (10:00)
[2023-05-07] MEDS: PRENATAL VITAMINS W/ FOLIC ACID TABLET (FP) PO SCH (10:07)
[2023-05-07] MEDS: NICOTINE 14 MG/24 HOURS TOPICAL PATCH TD SCH (10:09)
[2023-05-07] MEDS: hydrOXYzine PAMOATE 25 MG CAPSULE (FP) PO PRN ×2 (10:09→19:08)
[2023-05-07] MEDS: MELATONIN 5 MG TABLETS PO SCH (22:14)
[2023-05-07] MEDS: THIAMINE HCL 100 MG TABLET (FP) PO SCH (22:14)
[2023-05-08] MEDS: hydrOXYzine PAMOATE 25 MG CAPSULE (FP) PO PRN (05:34)
[2023-05-08 09:18] VITALS: BP 131/83; PULSE 57; RESP 18; TEMP 98.1
[2023-05-08] MEDS: PRENATAL VITAMINS W/ FOLIC ACID TABLET (FP) PO SCH (10:00)
[2023-05-08] MEDS: NICOTINE 14 MG/24 HOURS TOPICAL PATCH TD SCH (10:00)
== END 2023-05-08 09:17 | disposition home or self-care (01) | DRG 773 ==
LOC: YASAS 12:29 → Y6N 15:34
PROVIDERS: ADMIT Allergy & Immunology; ATTEND Allergy & Immunology
PROC: HZ2ZZZZ Detoxification Services for Substance Abuse Treatment (ICD-10-PCS; principal; 2023-05-03)
DX: F11.23 Opioid dependence with withdrawal (principal); F14.20 Cocaine dependence, uncomplicated; F12.20 Cannabis dependence, uncomplicated; F17.213 Nicotine dependence, cigarettes, with withdrawal; R00.1 Bradycardia, unspecified; Z86.19 Personal history of other infectious and parasitic diseases
CPT/HCPCS: 36415; 80053; 85027; 86593; 86780; 87389; 87635; 87811